=== PATIENT | male | born 1950 | race Caucasian/White ===

== ENCOUNTER 2016-11-01 09:40 | Emergency (ER) | payer MEDICARE, MEDICAID ==
[~2016-11-01] VITALS: Ht 180.3 cm; Wt 81.2 kg
[~2016-11-01 09:40] MED LIST: ALBUTEROL-1 PUFF/14. IN; ALLOPURINOL100 M1 PO; AMLODIPINE10 MG PO; APAP/HYDROCODON1 TA9 PO; ASPIRIN 81MG TA81 MG PO; ATORVASTATIN CA10 M1 PO; BRILINTA90 MG PO; CARDURA2 M1 PO; CARVEDILOL 25MG25 MG PO; CARVEDILOL6.25 MG PO; CEFUROXIME AXE500 MG PO; CIALIS5 MG PO; CLOPIDOGREL75 M2 PO; COMBIVENT INH14.7 G1 IN; DICLOFENAC SODI75 M2 PO; DIFLUCAN100 MG PO; FLEXERIL10 MG PO; GABAPENTIN 400400 M1 PO; GABAPENTIN 400400 MG PO; IMODIUM 2MG. CAP2 MG PO; INDOCIN25 MG PO; ISOSORBIDE DINI10 MG PO; LEVAQUIN500 MG PO; LEVOTHYROXIN0.137 M1 PO; LEVOTHYROXINE0.2 M2 PO; LISINOPRIL HCTZ1 TAB PO; LOPID600 M1 PO; LORTAB 500 MG-71 TAB PO; MAGMTHWSH PO; MELOXICAM15 MG PO; MOTRIN600 MG PO; NITROGLYCERIN0.4 MG PO; OMEPRAZOLE40 MG PO; PHENERGAN25 M3 PO; SIMVASTATIN20 MG PO; SINGULAIR 10 MG10 MG PO; TEKTURNA300 MG PO; TIZANIDINE HCL 44 MG PO; TOPROL XL 100M100 MG PO; TRAZADONE HYDR100 MG PO; VOLTAREN50 MG PO; XANAX 0.5MG TA0.5 MG PO; ZETIA10 MG PO; ZYPREXA10 MG PO
[2016-11-01 09:52] LABS: HEMOGLOBIN 11.4 g/dL (14.1-18.0); LYMPH # 1.4 K/mm3 (0.7-4.5); LYMPH % 14.3 % (10-50)
[2016-11-01 10:18] LABS: BUN 24 mg/dL (7-18)
[2016-11-01 10:19] LABS: GFR (ESTIMATED) 74 ML/MIN (>60)
--- OUTSIDE RECORDS SUMMARY | 2016-11-01 10:32 | External Medical Summary Rpt ---
Author Author , Organization [employer] Address Unknown Phone Unavailable Care Team Providers Care Assistance Representative Name Role Phone CARMELLA, CARMELLA Unavailable Unavailable BESSONJUDITH A, Unavailable Unavailable BESSON, JUDITH A DE LA FUENTE, DE LA FUENTE Unavailable Unavailable DE LA FUENTE ALL, DE LA FUENTE ALL Unavailable Unavailable [facility] Unavailable Unavailable [facility] Unavailable Unavailable SERVICE, [facility] Unavailable Unavailable CONSULTANTS O, [facility], Unavailable Unavailable [facility], Unavailable Unavailable [facility] Unavailable Unavailable LAB, [facility] HEREDIA FLAKITO, HEREDIA FLAKITO Unavailable Unavailable [facility] Unavailable Unavailable [facility], [facility] JIM SANTOS, JIM Unavailable Unavailable MARGARITA ESPINOZA JR R, Unavailable Unavailable MARGARITA FERNANDEZ JR R RYAN RYAN Unavailable Unavailable RYAN NEMESIO, Unavailable Unavailable RYAN NEMESIO RYAN NEMESIO, Unavailable Unavailable RYAN NEMESIO JAMIE DAVISLAS, Unavailable Unavailable RYAN, JAMES LEONARD CLAUDIA, LEONARD CLAUDIA Unavailable Unavailable JAYLEN L.P., JAYLEN L.P. Unavailable Unavailable ÁNGELA BALTAZAR M, Unavailable Unavailable FALLCHRIS NEZAAlexandr M [facility] Unavailable Unavailable [facility], [facility] ALTA ONEAL, Unavailable Unavailable ALTA ONEAL GAINEY Unavailable Unavailable RUFINO OLINDA JIMENEZ, Unavailable Unavailable OLINDA JIMENEZ JOHN W, Unavailable Unavailable BEBE PALOMINO RONDAL E, Unavailable Unavailable ARNOLD FLORES DAVID P, Unavailable Unavailable NOAH MCCRAY [facility] Unavailable Unavailable INC, [facility] Unavailable Unavailable HOSPITAL P, [facility], Unavailable Unavailable [facility], Unavailable Unavailable [facility] DORITA LEANNA, DORITA LEANNA Unavailable Unavailable SHANNON III MARELY, Unavailable Unavailable SHANNON III MARELY [facility] Unavailable Unavailable [facility], [facility] PAULINO WEN, PAULINO Unavailable Unavailable WEN PUALINO WEN, PAULINO Unavailable Unavailable WEN DEON JR, DEON JR Unavailable Unavailable SCARLETT CORAL, SCARLETT Unavailable Unavailable [facility] Unavailable Unavailable SERVICES, [facility] Unavailable Unavailable ASSOC[facility], [facility] Unavailable Unavailable MEDICAL, [facility] Unavailable Unavailable [facility], [facility] Unavailable Unavailable [facility], [facility] MARYSE LEDESMA, Unavailable Unavailable MARYSE LEDESMA [facility], Unavailable Unavailable [facility] STOVALL, Unavailable Unavailable [facility]Alexandr JOHN, Unavailable Unavailable BEBE LAZARO, AMRITA CORAL Unavailable Unavailable AMRITA ABRKERS Unavailable Unavailable FLAKITO HEREDIA MD Unavailable Unavailable CONSULTING SR[facility], FLAKITO HEREDIA MD [facility] Unavailable Unavailable LAB, [facility] Unavailable Unavailable LAB, [facility] DAVID HACKETT, Unavailable Unavailable DAVID HACKETT [facility] Unavailable Unavailable [facility], [facility] MICHAELA, MICHAELA Unavailable Unavailable MICHAELA MAT, Unavailable Unavailable MICHAELA MAT [facility], Unavailable Unavailable [facility], Unavailable Unavailable [facility] XIMENA AMEZCUA, Unavailable Unavailable XIMENA AMEZCUA WELLS KIM Unavailable Unavailable BRIDGET VILLEGAS Unavailable Unavailable ÁNGEL HEDNRIX, Unavailable Unavailable ÁNGEL HENDRIX Purpose Continuity of Care Document - 06-01-2007 through 2016 Problems Code Diagnosis DOS Provider Status E785 HYPERLIPIDE 09-07-2016 [facility] MODE PHYSICIANS UNSPECIFIED GROUP I10 ESSENTIAL 09-07-2016 [facility] PRIMARY PHYSICIANS HYPERTENSIO GROUP N I2510 ASHD AKIACHAK 09-07-2016 [facility] CORONARY PHYSICIANS ARTERY W/O GROUP ANGINA PECTORIS Z950 PRESENCE OF 09-07-2016 [facility] CARDIAC PHYSICIANS PACEMAKER GROUP M109 GOUT 08-17-2016 [facility] UNSPECIFIED [facility]OCIATES M7989 OTHER 08-17-2016 [facility] SPECIFIED ASSOCIATES SOFT TISSUE DISORDERS I495 SICK SINUS 08-13-2016 [facility] SYNDROME PHYSICIANS GROUP J189 PNEUMONIA 08-10-2016 [facility] ORGANISM [facility] J440 COPD WITH 08-10-2016 [facility] ACUTE LOWER [facility] RESPIRATORY INFECTION J9811 ATELECTASIS 08-10-2016 [facility] Z720 TOBACCO USE 08-10-2016 [facility] X61492 PAIN IN 07-27-2016 [facility] RIGHT LEG [facility] R600 LOCALIZED 07-27-2016 [facility] J90 PLEURAL 07-22-2016 [place] EFFUSION [facility]ICAL NOT IMAGING ASS ELSEWHERE CLASSIFIED R531 WEAKNESS 07-22-2016 [facility] E039 HYPOTHYROID 07-19-2016 [facility] ISM [facility] UNSPECIFIED E876 HYPOKALEMIA 07-19-2016 [facility] I2119 [address] 07-19-2016 [facility] E[facility] [place] INVOLV OTH CORONARY ART INF WALL I959 HYPOTENSION 07-19-2016 [facility] UNSPECIFIED J449 CHRONIC 07-19-2016 [facility] OBSTRUCTIVE ASSOCIATES PULMONARY DISEASE UNS R0602 SHORTNESS 07-19-2016 [place] OF BREATH [facility] R0902 HYPOXEMIA 07-19-2016 [facility] R918 OTHER 07-19-2016 [place] NONSPECIFIC MEDICAL ABNORMAL IMAGING ASS FINDING OF LUNG FIELD R079 CHEST PAIN 07-18-2016 [place] UNSPECIFIED [facility] IM[facility]ING ASS M4806 SPINAL 07-22-2015 [place] STENOSIS MEDICAL LUMBAR IMAGING ASS REGION M5126 OTH 07-22-2015 [place] INTERVERTEB MEDICAL RAL DISC IMAGING ASS DISPLACEMEN T LUMBAR RGN M545 LOW BACK 07-22-2015 [place] PAIN MEDICAL IM[facility]ING ASS M1611 UNILATERAL 07-10-2015 [place] PRIMARY MEDICAL OSTEOARTHRI IMAGING ASS TIS RIGHT HIP Z71131 PAIN IN 07-10-2015 [place] RIGHT HIP MEDICAL IM[facility] ASS G65388 SPONDYLOSIS 07-10-2015 [place] W/O MEDICAL MYELOPATH/R IMAGING ASS ADICULOPATH Y LUMB RGN M5136 OTH 07-10-2015 [place] INTERVERTEB MEDICAL RAL DISC IMAGING ASS DEGEN LUMBAR REGION M5137 OT 07-10-2015 [place] INTERVERTEB MEDICAL RAL DISC IMAGING ASS DEGEN LUMBOSACRAL REGION 4019 UNSPECIFIED 01-01-2015 [place] ESSENTIAL MEDICAL HYPERTENSIO IMAGING ASS N 496 CHRONIC 01-01-2015 [place] AIRWAY MEDICAL OBSTRUCTION IMAGING ASS NEC 7862 COUGH 01-01-2015 [facility] 4010 ESSENTIAL 12-18-2014 [facility] HYPERTENSIO LAR N, [place] [address] COR 12-18-2014 [facility] ATHEROSLERO LAR UNSPEC CONSULTANTS TYPE VESSEL O AKIACHAK/SAAD T 44101 OTHER 12-18-2014 [facility] SPECIFIED LAR CARDIAC CONSULTANTS DYSRHYTHMIA O S 2440 POSTSURGICA 12-11-2014 [facility] L LAR HYPOTHYROID CONSULTANTS ISM O 4139 OTHER AND 12-04-2014 [facility] UNSPECIFIED REGIONAL ANGINA MEDICAL PECTORIS 69913 CORONARY 12-04-2014 [facility] ATHEROSCLER REGIONAL OSIS AKIACHAK MEDICAL CORONARY ARTERY 33448 HTN CKD UNS 12-03-2014 [facility] STAGE I INC THRU STAGE IV/UNS 4372 HYPERTENSIV 12-03-2014 [facility] ENCEPHALOPA INC THY 5859 CHRONIC 12-03-2014 [facility] DISEASE INC UNSPECIFIED 586 UNSPECIFIED 12-03-2014 [facility] RENAL LAR FAILURE CONSULTANTS O V1581 PERS HX 10-22-2014 [facility] NONCOMPLIAN LAR CE W/MED TX CONSULTANTS PRS O HAZARDS HLTH 6039 UNSPECIFIED 12-11-2013 [facility] HYDROCELE [facility] 54734 OTHER 12-11-2013 [place] SPECIFIED MEDICAL DISORDER OF IMAGING ASS MALE GENITAL ORGANS 8820 OPEN WOUND 11-10-2013 [facility] CRISTOBAL HAND NO FINGER ALONE W/O MENTION COMP E9208 ACC CAUSED 11-10-2013 [facility] CRISTOBAL OTH SPEC CUT&PIERCIN G INSTRUM/OBJ S 7948 NONSPECIFIC 09-04-2013 [facility] ABNORMAL [facility] RESULTS INC LIVR FUNCTION STUDY 7295 PAIN IN 07-27-2013 [facility] SOFT [facility] TISSUES OF INC LIMB 7231 CERVICALGIA 03-22-2013 [facility] 7210 CERVICAL 02-07-2013 [facility] [place] SPOND[facility] RADIOLOGY WITHOUT MYELOPATHY 7213 LUMBOSACRAL 02-07-2013 [facility] SPONDYLOSIS WITHOUT MYELOPATHY 7224 DEGENERATIO 02-07-2013 [facility] [place] N OF RADIOLOGY CERVICAL INTERVERTEB RAL DISC 15635 DEGEN 02-07-2013 [facility] [place] LUMBAR/LUMB RADIOLOGY OSACRAL INTERVERTEB RAL DISC 7245 UNSPECIFIED 02-07-2013 [facility] V5869 LONG-TERM 02-02-2013 [facility] (CURRENT) [facility] USE OF HOSPITAL OTHER MEDICATIONS 5758 OTHER 11-09-2012 RYAN SPECIFIED NEMESIO DISORDER OF GALLBLADDER 7904 NONSPEC 11-09-2012 [facility] E[facility]ATION [facility] OF LEVELS INC OF TRANSAMINAS E/LDH V745 SCREENING 10-27-2012 [facility]AM[facility] VENEREAL DISEASE 7234 BRACHIAL 07-14-2012 [facility] NEURITIS OR [facility] INC RADICULITIS NOS 4439 UNSPECIFIED 09-10-2011 [place] PERIPHERAL [facility] VASCULAR IMAGING ASS DISEASE 226 BENIGN 05-18-2011 PAULINO WEN NEOPLASM OF THYROID GLANDS 2410 NONTOXIC 05-18-2011 [facility] UNINODULAR H [facility] ANESTHESIA PSC 2459 UNSPECIFIED 05-18-2011 [facility] WEN THYROIDITIS 2449 UNSPECIFIED 05-15-2011 [facility] HYPOTHYROID HOSPITAL P ISM 43080 DIAB W/O 05-15-2011 [facility] TYPE [facility] II/UNS NOT HOSPITAL P STATED UNCNTRL 2724 OTHER AND 05-15-2011 [facility] UNSPECIFIED [facility] P HYPERLIPIDE MODE 4919 UNSPECIFIED 04-02-2011 [facility] CHRONIC [facility] BRONCHITIS INC 4928 OTHER 04-02-2011 [place] EMPHYSEMA [facility]ICAL IMAGING ASS 2409 GOITER, 04-01-2011 [place] UNSPECIFIED [facility]ICAL IMAGING ASS 2450 ACUTE 04-01-2011 PATHOLOGY & THYROIDITIS CYTOLOGY LAB 2388 NEOPLASM 03-02-2011 [facility]CERTAIN [facility] BEHAVIOR INC OTHER SPEC SITES 26996 THYROTOXICO 03-02-2011 [facility] S OTH [facility] ORIGIN W/ INC THYROTOX CRISIS/STOR M 2720 PURE 02-27-2011 [facility] HYPERCHOLES [facility] TEROLEMIA INC 31782 PAIN IN 02-03-2011 [place] JOINT, MEDICAL SHOULDER IMAGING ASS REGION 7802 SYNCOPE AND 02-02-2011 FLAKITO HEREDIA COLLAPSE MD CONSULTING SRV 69858 CHEST PAIN 02-02-2011 FLA[facility] HEREDIA UNSPECIFIED MD CONSULTING SRV 3319 UNSPECIFIED 01-23-2011 [facility] DEGENERATIO ASSOCIAT N 7820 DISTURBANCE 01-23-2011 [facility] SKIN [facility] SENSATION 28172 FLUSHING 01-23-2011 [facility] 7840 HEADACHE 01-23-2011 [facility] 86307 SHORTNESS 01-23-2011 [facility] 53399 NAUSEA 01-23-2011 [facility] 7931 NONSPEC 01-23-2011 [place] FIND RAD RADIOLOGY OTH EXAM ASSOCIAT BODY STRUCT LUNG FIELD 8408 SPRAIN&STRA 01-12-2011 [facility] IN OTH SPEC MEM HOSP SITES INC SHOULDER&UP PER ARM 8409 SPRAIN&STRA 01-12-2011 [facility] IN UNSPEC EMERGENCY SITE SERVICES SHOULDER&UP PER ARM 8470 NECK SPRAIN 01-12-2011 [facility] 9222 CONTUSION 01-12-2011 [facility] OF EMERGENCY ABDOMINAL SERVICES WALL 98038 OTHER 01-12-2011 [place] INJURY OF MEDICAL CHEST WALL IMAGING ASS 9592 INJURY 01-12-2011 [facility] OTHER&UNSPE MEDICAL CIFIED IMAGING ASS SHOULDER&UP PER ARM 9596 INJURY 01-12-2011 [place] OTHER AND MEDICAL UNSPECIFIED IMAGING ASS HIP AND THIGH E9179 OTHER 01-12-2011 [facility]ERGENCY AGAINST SERVICES W/WO SUBSEQUENT FALL 92053 OSTEOARTHRO 01-10-2011 [facility] S UNSPEC HOSPITAL WHETHER GEN/LOC SHLDR REGION 7291 UNSPECIFIED 01-10-2011 [facility] MY[facility] 13621 GROSS 09-17-2010 [facility] P 27668 PAIN IN 11-26-2009 [facility] JOINT, NEMESIO LOWER LEG 43920 PAIN IN 11-22-2009 [facility] JOINT EMERGENCY PELVIC SERVICES REGION AND ASSOCIATES THIGH 8439 SPRAIN&STRA 11-22-2009 [facility] IN OF MEM HOSP UNSPECIFIED INC SITE OF HIP&THIGH 8449 SPRAIN&STRA 11-22-2009 [facility] IN OF MEM HOSP UNSPECIFIED INC SITE OF KNEE&LEG 9597 INJURY 11-22-2009 [facility] OTHER&UNSPE EMERGENCY CIFIED KNEE SERVICES LEG ASSOCIATES ANKLE&FOOT E8889 UNSPECIFIED 11-22-2009 [facility] FALL [facility]ERGENCY SERVICES ASSOCIATES 42175 HEMATURIA 09-16-2009 [place] UNSPECIFIED MEDICAL IMAGING ASSOCIATES 30018 MICROSCOPIC 09-16-2009 [facility] HEMATURIA [facility] 23669 ABDOMINAL 09-16-2009 [facility] PAIN RIGHT ASSOCIATES LOWER QUADRANT 2749 GOUT, 09-05-2009 [facility] UNSPECIFIED ASSOCIATES 32976 OSTEOARTHRO 09-05-2009 [facility] S UNSPEC ASSOCIATES WHETHER GEN/LOC UNSPEC SITE 83825 OTHER 08-19-2009 LAB [facility] MALAISE AND [facility]IC [employer] HOLDING 15220 SPASM OF 08-18-2009 [facility] MUSCLE [facility] 56673 VOMITING 08-18-2009 [facility] ALONE [facility] 4111 INTERMEDIAT 08-13-2009 [facility] E CORONARY [place] [facility] 28321 ATRIAL 08-13-2009 NEW FIBRILLATIO [place] [facility] PSC 17393 DEHYDRATION 08-12-2009 [facility] 08737 LEUKOCYTOSI 08-12-2009 [facility] UNSPECIFIED 34531 CHRONIC 08-12-2009 [facility] OBSTRUCTIVE [facility] ASTHMA UNSPECIFIED 5849 ACUTE 08-12-2009 [facility] FAILURE [facility] UNSPECIFIED PROF SERV 5939 UNSPECIFIED 08-12-2009 [facility] DISORDER EMERGENCY OF KIDNEY SERVICES AND URETER ASSOCIATES 66610 RHABDOMYOLY 08-12-2009 [facility] 7804 DIZZINESS 08-12-2009 [place] AND [facility]ICAL GIDDINESS IMAGING ASSOCIATES 61778 OTHER CHEST 08-12-2009 [facility] V1582 PERS HX 08-12-2009 [facility] TOBACCO USE [facility] PRESENTING [facility] 41234 ABDOMINAL 07-14-2009 [facility] PAIN RIGHT MEDICAL UPPER IMAGING QUADRANT ASSOCIATES 96036 ABDOMINAL 07-10-2009 [facility] PAIN, MEM HOSP EPIGASTRIC INC 57983 UNSPECIFIED 07-05-2009 [facility] ARTHROPATHY SITE UNSPECIFIED 23653 EXOSTOSIS 04-04-2009 [facility], OF DAVID D UNSPECIFIED SITE 78353 EQUINUS 04-04-2009 [facility], DEFORMITY DAVID D OF FOOT, ACQUIRED 7851 PALPITATION 12-20-2008 [facility] 24113 ASTHMA, 12-03-2008 [facility] , UNSPECIFIED STATUS 52169 ESOPHAGEAL 05-24-2008 [facility] REFLUX [facility] INC V571 OTHER 05-13-2008 [facility] PHYSICAL HOSPITAL THERAPY 3384 CHRONIC 03-08-2008 [facility], PAIN NOAH P SYNDROME 7238 OTHER 02-02-2008 ABDIAZIZ LAZARO AFFECTING CERVICAL REGION 40582 STOMATITIS 01-27-2008 [facility] MUCOSITIS [place] UNSPECIFIED 46499 UNSPECIFIED 01-27-2008 [facility] ESOPHAGITIS INC 17758 ACUTE 01-27-2008 [facility] ESOPHAGITIS Insane Logic 4741 ALLERGIC 01-16-2008 [facility] RHINITIS ASSOCIATES CAUSE UNSPECIFIED 460 ACUTE 10-16-2007 [facility] NASOPHARYNG ASSOCIATES ITIS 8840 MX&UNSPEC 10-16-2007 [facility] OPEN WOUND HOSPITAL UPPER LIMB W/O MENTION COMP 99044 OBSTRUCTIVE 09-22-2007 [facility] CHRONIC ASSOCIATES BRONCHITIS WITH EXACERBATIO N 33466 POSTLAMINEC 06-29-2007 [facility] SARAH SERVICES SYNDROME PSC LUMBAR REGION 7242 LUMBAGO 06-29-2007 [facility]ANS SERVICES PSC 7246 DISORDERS 06-29-2007 PHYSICIANS OF SACRUM SERVICES PSC 9532 INJURY TO 06-29-2007 [facility]ANS LUMBAR SERVICES NERVE ROOT PSC 7211 CERVICAL 06-28-2007 [facility] SPONDYLOSIS SERVICES WITH PSC MYELOPATHY 84790 OTHER&UNSPE 06-28-2007 PH[facility]IANS CIFIED DISC SERVICES DISORDER PSC CERVICAL REGION 7230 SPINAL 06-28-2007 PH[facility]IANS STENOSIS IN SERVICES CERVICAL PSC REGION 83049 OTHER&UNSPE 06-26-2007 PHYSICIANS CIFIED DISC SERVICES DISORDER PSC OF LUMBAR REGION 73828 SCOLIOSIS , 06-26-2007 [facility] IDIOPATHIC SERVICES PSC 9530 INJURY TO 06-01-2007 [facility]ANS CERVICAL SERVICES NERVE ROOT PSC 244.9 786.50 M48.06 SPINAL STENOSIS, LUMBAR REGION S61.412A LACERATION WITHOUT FOREIGN BODY OF LEFT HAND, INIT ENCNTR Medications Na ND Rx Da Fi Fi Am Da Di Ph RX Ph St me C No te ll ll ou ys ag ar # ys at rm s nt no ma ic us Or Da si cy ia de te s n re d AL 59 10 10 0 60 30 SO 38 NO Ac MN 76 -2 -2 .0 PE 80 RF ti AZ 23 5- 7- 00 RS 07 LE ve OL 72 20 20 ET AM 00 11 11 FA R 3 [place] 0. LY HE 5 NR MG Y TA BL ET AL 59 09 09 0 60 30 SO 38 NO Ac MN 76 -2 -2 .0 PE 54 RF ti AZ 23 6- 8- 00 RS 11 LE ve OL 72 20 20 ET AM 00 11 11 FA R 3 [place] 0. L[place] HE 5 NR MG Y TA BL ET AL 59 08 08 0 60 30 SO 38 NO Ac MN 76 -2 -2 .0 PE 24 RF ti AZ 23 6- 6- 00 RS 86 LE ve OL 72 20 20 ET AM 00 11 11 FA R 3 [place] 0. L[place] HE 5 NR MG Y TA BL ET AL 59 07 07 0 60 30 SO 37 NO Ac MN 76 -2 -2 .0 PE 98 RF ti AZ 23 9- 9- 00 RS 57 LE ve OL 72 20 20 ET AM 00 11 11 FA R 3 [place] 0. L[place] HE 5 NR MG Y TA BL ET AL 00 06 07 0 60 30 SO 37 NO Ac MN 78 -2 -0 .0 PE 72 RF ti AZ 11 8- 1- 00 RS 67 LE ve OL 07 20 20 ET AM 71 11 11 FA R 0 [place] 0. LY HE 5 NR MG Y TA BL ET AL 00 05 05 0 60 30 SO 37 NO Ac MN 78 -3 -3 .0 PE 48 RF ti AZ 11 1- 1- 00 RS 56 LE ve OL 07 20 20 ET AM 71 11 11 FA R 0 [place] 0. LY HE [address] Y UG TA ET AL 00 04 04 0 60 30 SO 37 NO Ac MN 78 -2 -2 .0 PE 22 RF ti AZ 11 9- 9- 00 RS 08 LE ve OL 07 20 20 ET AM 71 11 11 FA R 0 [place] 0. LY HE [address] Y UG TA BL ET 64 06 06 0 18 5 SO 34 NO Ac 37 -0 -0 0. PE 43 RF ti 60 4- 4- 00 RS 12 LE ve 72 20 20 0 ET 71 10 10 FA R 6 [place] NR [address] Y UG AL 00 01 01 00 60 30 HO 10 NO Ac MN 78 -0 -1 .0 PK 03 RF ti AZ 11 8- 4- 00 IN 40 LE ve OL 07 20 20 S 2 ET AM [address] Alexandr 5 UG 0. HE 5 CO NR MG Y IN [facility] ET AL 00 12 12 00 60 30 HO 10 NO Ac MN 78 -0 -1 .0 PK 02 RF ti AZ 11 8- 7- 00 IN 37 LE ve OL 07 20 20 S 7 ET AM [address] Strange 5 UG 0. HE 5 CO NR MG Y IN [facility] ET AL 00 11 11 00 60 30 HO 10 NO Ac MN 78 -1 -1 .0 PK 01 RF ti AZ 11 0- 9- 00 IN 40 LE ve OL 07 20 20 S 8 ET AM [address] Strange 5 UG 0. HE 5 CO NR MG Y IN [facility] ET AL 00 10 10 00 60 30 HO 10 NO Ac MN 78 -0 -2 .0 PK 00 RF ti AZ 11 9- 2- 00 IN 20 LE ve OL 07 20 20 S 0 ET AM [address] Alexandr 5 UG 0. HE 5 CO NR MG Y IN TA [facility] ET AL 00 09 09 00 60 30 HO 99 NO Ac MN 78 -1 -2 .0 PK 91 RF ti AZ 11 1- 4- 00 IN 65 LE ve OL 07 20 20 S ET AM [address] Alexandr 5 UG 0. HE 5 CO NR MG Y IN TA [facility] ET AL 00 08 08 00 60 30 HO 99 NO Ac MN 78 -1 -2 .0 PK 81 RF ti AZ 11 1- 7- 00 IN 05 LE ve OL 07 20 20 S ET AM [address] R 5 UG 0. HE 5 CO NR MG Y IN TA C BL ET AL 59 02 02 00 60 30 CL 18 NO Ac MN 76 -1 -2 .0 IN 75 RF ti AZ 23 3- 6- 00 IC 66 LE ve OL 72 20 20 ET AM 00 09 09 PH R 1 AR 0. MA HE 5 CY NR MG Y TA BL ET BU 00 02 02 00 15 4 SO 30 NO Ac TA 14 -1 -2 .0 PE 56 RF ti LB 31 3- 6- 00 RS 45 LE ve -A 78 20 20 ET CE 70 09 09 FA R TA 1 [place] LY HE N- NR CA DR Y FF UG 50 -3 25 -4 0 60 02 02 00 18 5 SO 30 NO Ac 25 -1 -2 0. PE 56 RF ti 80 3- 6- 00 RS 47 LE ve 23 20 20 0 ET 91 09 09 FA R 6 [place] NR DR Y UG 00 02 02 00 20 7 CL 18 NO Ac 55 -0 -1 .0 IN 71 RF ti 51 6- 2- 00 IC 86 LE ve 88 20 20 ET 30 09 09 PH R 2 AR MA HE CY NR Y 60 01 01 00 18 5 SO 30 NO Ac 25 -2 -3 0. PE 37 RF ti 80 0- 0- 00 RS 23 LE ve 23 20 20 0 ET 91 09 09 FA R 6 [place] NR [place] Y UG 00 11 12 00 20 7 CL 18 NO Ac 55 -1 -0 .0 IN 21 RF ti 51 7- 4- 00 IC 25 LE ve 88 20 20 ET 30 08 08 PH R 2 AR MA HE CY NR Y 60 11 12 00 18 5 CL 18 NO Ac 25 -2 -0 0. IN 23 RF ti 80 1- 4- 00 IC 71 LE ve 23 20 20 0 ET 91 08 08 PH R 6 AR MA HE CY NR Y 60 11 11 00 18 5 CL 18 NO Ac 25 -1 -2 0. IN 18 RF ti 80 4- 0- 00 IC 63 LE ve 23 20 20 0 ET 91 08 08 PH R 6 AR MA HE CY NR Y AL 59 07 08 00 60 30 CL 17 No Ac MN 76 -1 -0 .0 IN 46 t ti AZ 23 8- 1- 00 IC 15 Av ve OL 72 20 20 ai AM 00 08 08 PH la 3 AR bl 0. MA e 5 CY MG TA BL ET 60 06 06 00 18 5 CL 17 No Ac 25 -0 -1 0. IN 17 t ti 80 2- 2- 00 IC 61 Av ve 23 20 20 0 ai 91 08 08 PH la 6 AR bl MA e CY HY 60 05 05 00 15 5 CL [address] 43 -0 -2 0. IN 03 t ti OC 20 9- 2- 00 IC 57 Av ve OD 45 20 20 0 ai ON 51 08 08 PH la E- 6 AR bl HO MA e MA CY TR OP IN E SY RU P Procedures Procedure DOS Code Location Performer Comment ECG [address] [facility] ROUTINE 7 PHYSICIAN ECG S GROUP W/LEAST 12 LDS I&R ONLY ECG 42141 [facility] ROUTINE 7 [facility] ECG INC INC W/LEAST 12 LDS TRCG ONLY W/O I&R ECG [facility] PHYSICIAN ECG S GROUP W/LEAST 12 LDS I&R ONLY THERAPEUT 73180 [facility] FAMILY IC 7 CARE CARE PROPHYLAC ASSOCIATE ASSOCIATE TIC/DX S S INJECTION SUBQ/[place] [address] [facility] NEW/RPLCM 7 PHYSICIAN T PRM PM S GROUP W/TRANSV ELTRD ATRIAL&VE NT RADIOLOGI 34913 [place] [facility] 7 MEDICAL EXAMINATI IMAGING ON CHEST ASS SINGLE VIEW FRONTAL ECG 15510 [facility] ROUTINE 7 [facility] ECG INC INC W/LEAST 12 LDS TRCG ONLY W/O I&R RADIOLOGI 96320 [facility] C EXAM 7 [facility] CHEST 2 INC INC VIEWS FRONTAL&L ATERAL DUP-SCAN 56533 [place] [facility] XTR VEINS 7 MEDICAL IMAGING UNILATERA ASS L/LIMITED STUDY ECG 18883 [facility] ROUTINE 7 [facility] ECG INC INC W/LEAST 12 LDS TRCG ONLY W/O I&R HOSPITAL 90062 FAMILY FAMILY DISCHARGE 7 CARE CARE DAY ASSOCIATE ASSOCIATE MANAGEMEN S S T 30 MIN/< RADIOLOGI 14589 [place] C EXAM 7 MEDICAL CHEST 2 IMAGING VIEWS ASS FRONTAL&[place] [address] J[facility] [place] [facility] HEAD/BRAI 7 MEDICAL N W/O IMAGING CONTRAST ASS MATERIAL RADIOLOGI 99588 [facility] [place] C EXAM 7 MEDICAL CHEST 2 IMAGING VIEWS ASS FRONTAL&L ATERAL ECG 01261 GEORGE DEON SCHULTZ ROUTINE 7 [facility] W/LEAST P 12 LDS I&R ONLY RADIOLOGI 80011 JANICE DAVIS C 7 MEDICAL EXAMINATI IMAGING ON CHEST ASS [place] FRONTAL ECG 23382 GE[facility] VAZQUEZ ROUTINE 6 [facility] ECG INC INC W/LEAST 12 LDS TRCG ONLY W/O I&R ECG 26284 GE[facility] VAZQUEZ ROUTINE 6 [facility] ECG INC INC W/LEAST 12 LDS TRCG ONLY W/O I&R MRI 40530 JANICE DAVIS SPINAL 6 MEDICAL NEMESIO CANAL IMAGING LUMBAR ASS W/O CONTRAST MATERIAL 3D 17[facility] RENDERING 6 MEDICAL NEMESIO W/INTERP IMAGING & ASS POSTPROCE SS SUPERVISI ON RADEX 92185 [place]ANICE [place] ALL SPINE 6 MEDICAL LUMBOSACR IMAGING AL 2/3 ASS VIEWS RADEX HIP 86315 GEORGE VAZQUEZ 6 [facility] UNILATERA INC INC L WITH PELVIS 2-3 VIEWS ECG 24732 GEORGE VAZQUEZ ROUTINE 6 [facility] ECG INC INC W/LEAST 12 LDS TRCG ONLY W/O I&R RADEX 66175 GEORGE VAZQUEZ SPINE 6 [facility] LUMBOSACR INC INC AL MINIMUM 4 VIEWS RADEX HIP 16390 [facility]ANICE [place] ALL 6 MEDICAL UNILATERA IMAGING L WITH ASS PELVIS 1 VIEW ECG 05084 GEOR[facility] VAZQUEZ ROUTINE 6 [facility] ECG INC INC W/LEAST 12 LDS TRCG ONLY W/O I&R RADIOLOGI 93049 [facility]ANICE [place] ALL C EXAM 5 MEDICAL CHEST 2 IMAGING VIEWS ASS FRONTAL&L ATERAL ECG 60091 CARDIOVAS CARDIOVAS ROUTINE 5 CULAR CULAR ECG CONSULTAN CONSULTAN W/LEAST TS O TS O 12 LDS I&R ONLY ECG 76628 CARDIOVAS CARDIOVAS ROUTINE 5 CULAR CULAR ECG CONSULTAN CONSULTAN W/LEAST TS O TS O 12 LDS I&R ONLY NONCOVERE A9270 MEADOWVIE MEADOWVIE D ITEM OR 5 W W SERVICE [facility] MEDICAL NONCOVERE A9270 MEADOWVIE MEADOWVIE D ITEM OR 5 W W SERVICE [facility] CATH PLMT 15576 CARDIOVAS CARDIOVAS L HRT & 5 CULAR CULAR ARTS CONSULTAN CONSULTAN W/NJX & TS O TS O ANGIO IMG S&I ECG 31350 CARDIOVAS CARDIOVAS ROUTINE 5 CULAR CULAR ECG CONSULTAN CONSULTAN W/LEAST TS O TS O 12 LDS I&[place] [address] GEORGE VAZQUEZ SCROTUM & 4 [facility] [place] [place] [address] GEORGE VAZQUEZ ABDOMEN & 4 [facility] PELVIS INC INC W/O CONTRST 1/> BODY RE DUP-SCAN 43482 GEORGE VAZQUEZ XTR VEINS 4 [facility] INC INC UNILATERA L/LIMITED STUDY NEEDLE 93019 AMRITA MONCADA EMG EA 3 EXTREMTY W/PARASPI NL AREA COMPLETE NERVE 86539 AMRITA MONCADA CONDUCTIO 3 N STUDIES 11-12 STUDIES MRI 14310 [facility] [place] SHANNON SPINAL 3 RADIOLOGY III MARELY CANAL LUMBAR W/O CONTRAST MATERIAL MRI 85906 [facility] SPINAL [address] [place] [address] CERVICAL W/O CONTRAST MATRL RADEX 58724 [facility] SPINE [address] [place] [address] CERVICAL [facility] 2 OR 3 VIEWS RADEX 88143 [facility] SPINE 3 [facility] 2/3 [place] [address] RYAN RYAN ABDOMINAL 3 NEMESIO NEMESIO REAL TIME W/IMAGE LIMITED IADNA 25309 MEDICAL MEDICAL PAPILLOMA 3 DIAGNOSTI DIAGNOSTI [facility] HUMAN AMPLIFIED PROBE TQ IADNA NOS 63872 MEDICAL MEDICAL 3 DIAGNOSTI DIAGNOSTI AMPLIFIED [facility] PROBE TQ EACH ORGANISM MRI 93880 RYAN RYAN SPINAL 3 NEMESIO NEMESIO CANAL CERVICAL W/O CONTRAST MATRL 3D 18966 RYAN RYAN RENDERING 3 NEMESIO NEMESIO W/INTERP & POSTPROCE SS SUPERVISI ON NON-INVAS 49597 JANICE RYAN CHERELLE 2 MEDICAL NEMESIO PHYSIOLOG IMAGING IC STUDY ASS EXTREMITY 3 LEVLS THYROIDEC 82381 JEFFERSON PAULINO SARAH 2 WEN WEN SUBSTERNA L CERVICAL APPROACH PARATHYRO 31993 JEFFERSON PAULINO ID 2 WEN WEN AUTOTRANS PLANTATIO N ADD-ON ECG 08229 DORITA RAM ROUTINE 2 ECG W/LEAST 12 LDS I&R ONLY ECG 70296 GEORGE VAZQUZE ROUTINE 1 [facility] W/LEAST P P 12 LDS I&R ONLY BLOOD 89993 GEORGE VAZQUEZ COUNT 1 [facility] HEMOGLOBI INC INC N CALCIUM 10851 GEORGE VAZQUEZ IONIZED 1 [facility] INC INC BASIC 82014 GEORGE VAZQUEZ METABOLIC 1 [facility] PANEL INC INC CALCIUM TOTAL ECG 80635 GEORGE VAZQUEZ ROUTINE 1 [facility] ECG INC INC W/LEAST 12 LDS TRCG ONLY W/O I&R BLOOD 36722 GEORGE VAZQUEZ COUNT 1 [facility] [place] [address] GEORGE VAZQUEZ THYROID 1 [facility] STIMULATI [place] [address] GEORGE VAZQUEZ FREE 1 [facility] THYROXINE INC INC COLLECTIO 96878 GEORGE VAZQUEZ N VENOUS 1 [facility] BLOOD INC INC VENIPUNCT URE RADIOLOGI 60596 GEORGE VAZQUEZ C EXAM 1 [facility] CHEST 2 INC INC VIEWS FRONTAL&[place] [address] GEORGE VAZQUEZ THYROID 1 [facility] STIMULATI [place] [address] GEORGE VAZQUEZ FREE 1 [facility]OS[facility] THYROXINE INC INC COLLECTIO 79909 GEORGE VAZQUEZ N VENOUS 1 [facility]OS[facility] BLOOD INC INC VENIPUNCT URE US SOFT 35700 GEORGE VAZQUEZ TISSUE 1 [facility] HEAD & INC INC NECK REAL TIME IMGE DOCM FINE 03389 [facility] NEEDLE 1 MEDICAL NEMESIO ASPIRATIO [place] [address] [place] RYAN GUIDANCE 1 MEDICAL NEMESIO NEEDLE IMAGING PLACEMENT ASS IMG S&I MICROSOMA 67929 GEORGE VAZQUEZ L 1 [facility] ANTIBODIE INC INC S EACH FINE 70015 GEORGE VAZQUEZ NEEDLE 1 [facility] ASPIRATIO INC INC N W/O IMAGING GUIDANCE CYTP EVAL 10288 PATHOLOGY PATHOLOGY FINE 1 & & NEEDLE CYTOLOGY CYTOLOGY [facility]ATE LAB LAB INTERP & REPORT CT SOFT 11258 GEORGE VAZQUEZ TISSUE 1 [facility] NECK W/O INC INC CONTRAST MATERIAL CREATININ 75768 GEORGE BARNESON E BLOOD 1 [place] [address] GEORGE GEORGE UREA 1 [facility] NITROGEN INC INC QUANTITAT CHERELLE COLLECTIO 58235 GEORGE VAZQUEZ N VENOUS 1 [facility] BLOOD INC INC VENIPUNCT URE 3D 37901 GEORGE VAZQUEZ RENDERING 1 [facility] INC INC W/INTERP& [place] [address] GEORGE VAZQUEZ THYROXINE 1 [facility] [place] [address] GEORGE VAZQUEZ THYROID 1 [facility] STIMULATI INC INC NG HORMONE TSH CALCIUM 51106 GEORGE VAZQUEZ TOTAL 1 [facility]OS[facility] INC INC COLLECTIO 19802 GEORGE VAZQUEZ N VENOUS 1 [facility]OS[facility] BLOOD INC INC VENIPUNCT URE MICROSOMA 38962 GEORGE BARNESON L 1 [facility]OS[facility] ANTIBODIE INC INC S EACH US SOFT 64168 GEORGEJOSÉ LUIS BARNESON TISSUE 1 [facility] HEAD & INC INC NECK REAL TIME IMGE DOCM RADEX 99539 JANICE TRAMMELLUTCHER SPINE 1 MEDICAL NEMESIO CERVICAL IMAGING 4 OR 5 ASS VIEWS RADEX 09758 GEORGE VAZQUEZ SHOULDER 1 [facility] COMPLETE INC INC MINIMUM 2 VIEWS RADEX 29439 GEORGE VAZQUEZ SPINE 1 [facility] CERVICAL INC [place] 6 [place] [address] GEORGE VAZQUEZ THYROID 1 [facility] STIMULATI INC INC NG HORMONE TSH COLLECTIO 98627 GEORGE VAZQUEZ N VENOUS 1 [facility] BLOOD INC INC VENIPUNCT URE BASIC 89751 GEORGE VAZQUEZ METABOLIC 1 [facility] PANEL INC INC CALCIUM TOTAL HEPATIC 26563 GEORGE VAZQUEZ FUNCTION 1 [facility] PANEL INC INC LIPID 73391 GEORGE VAZQUEZ PANEL 1 [facility] INC INC ECG 58910 FLAKITO HEREDIA HEREDIA FLAKITO ROUTINE 1 MD ECG CONSULTIN W/LEAST G SRV 12 LDS I&R ONLY RADIOLOGI 10445 DAVEY MARISCAL C EXAM 1 CO CO CHEST 2 [facility]OSPITAL VIEWS FRONTAL&L ATERAL BLOOD 30805 DAVEY MARISCAL COUNT 1 CO CO COMPLETE [facility] AUTO&[place] [address] DAVEY MARISCAL TROPONIN 1 CO CO QUANTITAT [facility] CHERELLE MYOGLOBIN 26863 DAVEY MARISCAL 1 CO CO [facility] URNLS DIP 29578 DAVEY MARISCAL 1 CO CO STICK/TAB [facility] HOSPITAL [place] [address] DAVEY MARISCAL INFUSION 1 CO CO THERAPY/P [facility] ROPHYLAXI S /DX 1ST TO 1 HR ECG 43089 DAVEY MARISCAL ROUTINE 1 CO CO ECG [facility]OSPITAL W/LEAST 12 LDS TRCG ONLY W/O I&R CREATINE 22075 DAVEY MARISCAL KINASE 1 [facility]OSPITAL ANTIBODY 72063 DAVEY MARISCAL HELICOBAC [address] [facility] HOSPITAL PYLORI CREATINE 99337 DAVEY MARISCAL KINASE MB 1 [facility] HOSPITAL ONLY COMPREHEN 17803 DAVEY FARRISOLAS SIVE 1 CO VA METABOLIC [facility]OSPITAL PANEL COLLECTIO 74897 DAVEY MARISCAL Katherine VENOUS 1 CO VA BLOOD [facility] [place] [address] DAVEY MARISCAL HEAD/BRAI 1 CO CO N W/O HOSPITAL HOSPITAL CONTRAST MATERIAL CERVICAL L0120 JAYLEN L.P. JAYLEN L.P. FLEXIBLE 1 NONADJUST ABLE PREFAB OFF SHELF 3D 20602 JANICE DAVIS RENDERING 1 MEDICAL NEMESIO IMAGING W/INTERP& [place] [address] JANICE DAVIS CERVICAL 1 MEDICAL NEMESIO SPINE W/[place] [address] GEORGE VAZQUEZ AMYLASE 1 [facility] INC INC COMPREHEN 87583 GEORGE VAZQUEZ SIVE 1 [facility] [place] [address] [facility] DAVIS ABDOMEN & 1 MEDICAL NEMESIO PELVIS IMAGING W/O ASS CONTRAST MATERIAL RADIOLOGI 87400 [facility] DAVIS C EXAM 1 MEDICAL NEMESIO CHEST 2 IMAGING VIEWS ASS FRONTAL&L ATERAL RADEX 34187 [facility] DAVIS SHOULDER 1 MEDICAL NEMESIO COMPLETE IMAGING MINIMUM 2 ASS VIEWS RADIOLOGI 28385 [facility] DAVIS C 1 MEDICAL NEMESIO EXAMINATI IMAGING ON PELVIS ASS 1/2 VIEWS THERAPEUT 67086 GEORGE VAZQUEZ IC 1 [facility] INJECTION INC INC IV PUSH EACH NEW DRUG BLOOD 23582 GEORGE VAZQUEZ COUNT 1 [facility] COMPLETE INC INC AUTO&[place] [address] GEORGE VAZQUEZ INFUSION 1 [facility] THERAPY/P INC INC ROPHYLAXI S /DX 1ST TO 1 [place] [address] GEORGE VAZQUEZ LIPASE 1 [facility] INC INC MRI ANY 87243 RYAN BUTLERCHER JT LOWER 0 NEMESIO NEMESIO EXTREM W/O CONTRAST MATRL RADIOLOGI 33006 GEORGE VAZQUEZ C 0 [facility] EXAMINATI INC INC ON KNEE 3 VIEWS RADEX HIP 48132 GEORGE VAZQUEZ 0 [facility] UNILATERA INC INC L COMPLETE MINIMUM 2 VIEWS KNEE L1830 GEORGE VAZQUEZ ORTHOSIS 0 [facility] IMMOBLIZE INC INC R CANVAS LONGTUDNL PREFAB DASH 33154 SHELLEY FERNANDEZ , POST-VOID 0 [facility] UROLOGY R RESIDUAL PSC URINE&/BL ADDER CAP BLOOD 01159 FAMILY MCNEILT, COUNT 0 CARE R BUFFY COMPLETE ASSOCIATE AUTO&[place] [address] GEORGE VAZQUEZ ABDOMEN 0 [facility] W/O INC INC CONTRAST MATERIAL URNLS DIP 02348 FAMILY COTTO, 0 CARE Alexandr BAER STICK/TAB ASSOCIATE LET RGNT S NON-AUTO W/O MICRSCP 3D 60941 GEORGE VAZQUEZ RENDERING 0 [facility] INC INC W/INTERP& POSTPROC DIFF WORK STATION CT PELVIS 77468 GEORGE VAZQUEZ W/O 0 [facility] [place] [address] COMBINED COMBINED BLOOD/URI 0 PHYSICIAN PHYSICIAN C ACID S LAB S LAB 25 10091 LAB ANNIE LAB ANNIE HYDROXY 0 AMERIC AMERIC INCLUDES HOLDING HOLDING FRACTIONS IF PERFORMED CYANOCOBA 34333 COMBINED COMBINED ELAINE 0 PHYSICIAN PHYSICIAN VITAMIN S LAB S LAB B-12 CREATINE 30915 COMBINED COMBINED KINASE 0 PHYSICIAN [place] [address] COMBINED COMBINED FOLIC 0 PHYSICIAN PHYSICIAN ACID S LAB S LAB SERUM COMPREHEN 56530 COMBINED COMBINED SIVE 0 PHYSICIAN PHYSICIAN METABOLIC S LAB S LAB PANEL BLOOD 74983 FAMILY MONTALVOBERRY, COUNT 0 CARE MARYSE T COMPLETE ASSOCIATE AUTO&AUTO S DIFRNTL WBC COLLECTIO 26446 FAMILY LEDESMA, N VENOUS 0 CARE MARYSE Flowers BLOOD ASSOCIATE VENIPUNCT S URE BASIC 42166 COMBINED COMBINED METABOLIC 0 PHYSICIAN PHYSICIAN PANEL S LAB S LAB CALCIUM TOTAL ECG 48175 BUBBA HENDRIX ROUTINE 0 ÁNGEL ARCOS ECG CLINIC J W/LEAST PSC 12 LDS I&R ONLY ECG 22685 GEORGE BESSON, ROUTINE 0 [facility] W/LEAST PROF SERV 12 [facility] I&[place] [address] GEORGE GEORGE TROPONIN 0 [facility] QUANTITAT INC INC CHERELLE BLOOD 60931 GEORGE VAZQUEZ COUNT 0 [facility] COMPLETE INC INC AUTO&AUTO DIFRNTL WBC RADIOLOGI 14308 GEORGE VAZQUEZ C EXAM 0 [facility] CHEST 2 INC INC VIEWS FRONTAL&L ATERAL CREATINE 52692 GEORGE VAZQUEZ KINASE 0 [facility] TOTAL INC INC 3D 40624 GEORGE VAZQUEZ RENDERING 0 [facility] W/INTERP INC INC & POSTPROCE SS SUPERVISI ON ECG 05938 GEORGE VAZQUEZ ROUTINE 0 [facility] ECG INC INC W/LEAST 12 [facility] TRCG ONLY W/O I&R INITIAL 28179 CARDIOLOG [facility] 0 Y [place] OBRIEN CARE/DAY OF [place] 70 MINUTES CRITICAL 05466 WILLY JIMENEZ CARE 0 EMERGENCY OLINDA S ILL/INJUR SERVICES ED PATIENT ASSOCIATE INIT S 30-74 MIN BASIC 78755 GEORGE VAZQUEZ METABOLIC 0 [facility] [address] GEORGE VAZQUEZ HEAD/BRAI 0 [facility] N W/O INC INC CONTRAST MATERIAL CREATINE 65204 GEORGE VAZQUEZ KINASE MB 0 [facility] FRACTION INC INC ONLY TECHNETIU A9537 GEORGE VAZQUEZ M TC-99M 0 [facility] MEBROFENI INC INC N DX UP TO 15 MCI HEPATBL 72433 GEORGE VAZQUEZ DUX SYS 0 [facility] [place] [address] GEORGE VAZQUEZ INFUSION 0 [facility] THERAPY/P INC INC ROPHYLAXI S /DX 1ST TO 1 [place] [address] DAVEY MARISCAL BLOOD/URI 0 CO CO C ACID [facility] COLLECTIO 97382 DAVEY MARISCAL N VENOUS 0 CO CO BLOOD [facility] [place] [address] GEORGE VAZQUEZ THYROID 0 COUNTS INCLUDE 234 [facility] STIMULATI [place] [address] GEORGE VAZQUEZ AMYLASE 0 [facility] INC INC COLLECTIO 40303 GEORGE VAZQUEZ N VENOUS 0 COUNTS INCLUDE 234 [facility] [place] [address] JANICE RYAN, ABDOMINAL 0 MEDICAL JAMES REAL IMAGING TIME ASSOCIATE W/[place] [address] GEORGE VAZQUEZ LIPASE 0 [facility] INC INC XTRNL ECG 80771 GEORGE VAZQUEZ & 48 HR 9 COUNTS INCLUDE 234 [facility] RECORDING INC INC CLOSURE C[address] VASCULAR AORTOGRAP [address] ABDOMINAL SERIALOGR APHY RS&I GLUCOSE 71821 [facility] [address]ANTIT[address] CHERELLE BLOOD XCPT REAGENT STRIP SODIUM [address] PLASMA OR WHOLE BLOOD INTRDUCR/ C1894 [facility] SHEATH [address] [place] [address] NOT GUID INTRACARD EP NON-LASR CREATININ 05172 [facility] E [address] INJECTION 80048 [facility] CARDIAC [address] [place] [address] CATHJ L VENTR/L ATR ANGIOGRAP H PLCMT G0269 [facility] OCCL DEVC [address] [place] [address] RG/ART POST SURG/INTR VNL PROC ANGIOGRAP [address] EXTREMITY UNILATERA L RS&I POTASSIUM [address] PLASMA/[place] B[place] [address] [facility] C-[address] F/SLCTV C ANGRPH I SI&R 03347 [facility] F/NJX PX [address] [place] [address] DURING C-CATHJ VENTR&/AT R ANGRPH I SI&R 67351 [facility] F/NJX PX [address] [place] [address] DURING C-CATHJ PULM&/OR SELECT L HRT 48076 [facility] CATHETERI [address] [place] [address] ZATION RETROGRAD E BRACHIAL PERQ BLOOD 91049 [facility] COUNT [address] [place] [address] HEMATOCRI T CARBON 59506 [facility] DIOXIDE [address] [place] [address] [place] [address] [facility] UREA [address] [place] [address] NITROGEN QUANTITAT CHERELLE MYOCRD 37391 GEORGE VAZQUEZ PRFUJ STD 9 [facility] WALL INC INC MOTION QUAL/SANTIAGO STD MYOCRD 14119 GEORGE VAZQUEZ PRFUJ IMG 9 [facility] TOMOG INC INC 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 CV STRS 39239 GEORGE VAZQUEZ TST 9 [facility] XERS&/OR INC INC RX CONT ECG TRCG ONLY MYOCRD 38701 GEORGE VAZQUEZ PRFUJ STD 9 [facility] EJEC FXJ INC INC RADIOLOGI 61419 GEORGE VAZQUEZ C EXAM 9 [facility] CHEST 2 INC INC VIEWS FRONTAL&L ATERAL RADEX 79640 GEORGE VAZQUEZ UPPER GI 9 [facility] W/WO INC INC GLUCAGON/ DELAY IMAGES W/KUB RADEX 34560 GEORGE VAZQUEZ SINUSES 9 [facility] PARANASAL INC INC COMPL MINIMUM 3 VIEWS APPL 24132 DAVEY MARISCAL MODALITY 8 CO CO 1/> [facility] ULTRASOUN D EA 15 MIN THERAPEUT 20106 DAVEY MARISCAL IC PX 1/> 8 CO CO [facility] EACH 15 MIN EXERCISES APPL 06123 DAVEY MARISCAL MODALITY 8 CO CO 1/> [facility] TRACTION MECHANICA L APPL 31739 DAVEY MARISCAL MODALITY 8 CO CO 1/> [facility] ULTRASOUN D EA 15 MIN PHYSICAL 31132 DAVEY MARISCAL THERAPY 8 CO CO [facility] N APPL 21704 DAVEY MARISCAL MODALITY 8 CO CO 1/> [facility] TRACTION MECHANICA L NRV CNDJ 67839 IVETH LAZARO, AMPLITUDE 8 BEBE BEBE & LATENCY EACH NERVE SENSORY NDL EMG 1 14396 IVETH LAZARO, XTR W/WO 8 BEBE BEBE RELATED PARASPINA L AREAS NRV CNDJ 73275 IVETH LAZARO, AMPLT&LAT 8 BEBE SPENCE ENCY EA NRV MOTOR W/[place] [address] GEORGE VAZQUEZ STREPTOCO 8 [facility] CCUS INC INC GROUP A COMPREHEN 73761 GEORGE VAZQUEZ SIVE 8 [facility] METABOLIC INC INC PANEL RADIOLOGI 03645 GEORGE VAZQUEZ C EXAM 8 [facility] CHEST 2 INC INC VIEWS FRONTAL&L ATERAL BLOOD 45761 GEORGE VAZQUEZ COUNT 8 [facility] H[facility] COMPLETE INC INC AUTO&AUTO DIFRNTL WBC 3D 33139 RYAN DAVIS, RENDERING 8 JAMES JAMES W/INTERP & POSTPROCE [place] SUPERVIS[place] MRI 11340 RYAN DAVIS SPINAL 8 JAMES JAMES CANAL CERVICAL W/O CONTRAST MATRL COLLECTIO 14171 DAVEY Murphy VENOUS 8 CO VA BLOOD [facility] VENIPUNCT URE BLOOD 12366 DAVEY MARISCAL COUNT 8 CO CO SMEAR [facility] MCRSCP W/MNL DIFRNTL WBC COUNT BLOOD 92874 DAVEY MARISCAL COUNT 8 CO CO [facility] AUTO&AUTO DIFRNTL WBC COMPOS A6201 DAVEY MARISCAL DRESS >16 8 CO CO [facility] </=48 SQ W/O ADHES BORDR EA RADIOLOGI 33740 Chan CANO 8 MEDICAL JAMES EXAMINATI IMAGING ON KNEE 3 ASSOCIATE VIEWS S PRESSURIZ 47408 FAMILY BALTAZAR, ED/NONPRE 8 CARE MARYSE Flowers SSURIZED ASSOCIATE INHALATIO S N TREATMENT ALBUTEROL J7620 FAMILY BALTAZAR, TO 2.5 8 CARE MARYSE Flowers MG & ASSOCIATE IPRATROPI S UM BROM TO 0.5 MG INJECTION J1100 FAMILY MULBERRY, 8 CARE MARYSE T DEXAMETHO ASSOCIATE GEE Garcia SODIUM PHOSPHATE 1 MG MRI 91709 PHYSICIAN GEORGETTE, SPINAL 8 S BEBE W CANAL SERVICES CERVICAL PSC W/[place] [address] PHYSICIAN GEORGETTE, GUIDANCE 8 S BEBE W NEEDLE SERVICES PLACEMENT PSC 3D 07965 PHYSICIAN PHYSICIAN RENDERING 8 S S W/INTERP SERVICES SERVICES & P[place] 3D 91469 PHYSICIAN PHYSICIAN RENDERING 8 S S W/INTERP SERVICES SERVICES & PSC [place] [address] PHYSICIAN GEORGETTE, GUIDANCE 8 S BEBE W NEEDLE SERVICES PLACEMENT PSC MRI 58331 PHYSICIAN PHYSICIAN SPINAL 8 S S CANAL SERVICES SERVICES LUMBAR PSC PSC W/O CONTRAST MATERIAL Encounters Encounter Start End Date Code Location Performer Type Date [facility]ICE 10763 [facility] PHYSICIAN T VISIT S GROUP 25 MINUTES [facility] GEORGE - 7 7 [facility] OUTPATIEN [facility] OFFICE 53901 [facility] MICHAELA OUTPATIEN 7 7 PHYSICIAN T VISIT S GROUP 25 MINUTES [facility] - 7 7 [facility] OUTPATIEN [facility] GEORGE - 7 7 [facility] OUTPATIEN [facility]OR[facility] - 6 6 [facility]PATIEN [facility] GEORGE - 6 6 [facility] OUTPATIEN [facility] GEORGE - 6 6 [facility] OUTPATIEN [facility] OFFICE 14147 [facility] MIC[facility]EL[facility] OUTPATIEN 6 6 PHYSICIAN MAT T VISIT S GROUP 25 MINUTES HOSPITAL [facility] - 6 6 [facility] OUTPATIEN [facility] GEORGE - 6 6 [facility] OUTPATIEN [facility] YUNI Hector 5 5 W [facility] GEORGE - 5 5 [facility] OUTPATIEN [facility] GEORE[facility] - 4 4 [facility] OUTPATIEN [facility] EMERGENCY 66831 [facility]AL 4 4 [facility] VISIT MODERATE SEVERITY [facility]OSPITAL GEORGE - 4 4 [facility] 4 [facility] - 3 3 [facility] - 3 3 [facility] - 3 [facility] 2 2 [facility] - 1 1 [facility] - 1 1 [facility] - 1 1 [facility] 1 [facility] 1 1 [facility] - 1 1 [facility] - 1 1 [facility] OUTPATIEN [facility] EMERGENCY 14786 DAVEY KUMARIT 1 1 CO VISIT HOSPITAL HIGH SEVERITY& THREAT FUNCJ EMERGENCY 61627 DAVEY PANTOJA 1 1 [facility] [place] VISIT HIGH/URGE NT SEVERITY CRITICAL DAVEY REDD 1 1 [facility] OUT[facility] T EMERGENCY 20585 WILLY JIMENEZ DEPT 1 1 EMERGENCY [facility] VISIT SERVICES HIGH SEVERITY& THREAT FUN EMERGENCY 16593 [facility] 1 1 [facility] DEPARTMEN INC T VISIT HIGH/URGE NT SEVERITY CRITICAL DAVEY ACCESS 1 1 [facility] EMERGENCY 65968 DAVEY 1 1 [facility] T VISIT MODERATE SEVERITY OFFICE 77782 GEORGE FERNANDEZ JR OUTPATIEN 1 1 [facility] T VISIT [facility] 15 P MINUTES [facility] - 0 0 [facility] OUTPATIEN INC EMERGENCY 17994 WILLY JIMENEZ, 0 0 EMERGENCY [facility] SERVICES T VISIT HIGH/URGE ASSOCIATE NT S SEVERITY EMERGENCY 02919 [facility] 0 0 [facility] DEPARTMEN INC T VISIT MODERATE SEVERITY OFFICE 17157 SHELLEY FERNANDEZ JR, OUTPATIEN 0 0 [facility] MARGARITA T 30 UROLOGY R MINUTES [facility] OFFICE 36960 FAMILY KIRTI, OUTPATIEN 0 0 CARE R BUFFY T VISIT [facility] 15 S MINUTES [facility] - 0 0 [facility] INC T OFFICE 30606 FAMILY KIRTI, OUTPATIEN 0 0 CARE R [facility]FF[facility] T VISIT ASSOCIATE 25 S MINUTES OFFICE 46077 FAMILY BALTAZAR, OUTPATIEN 0 0 CARE MARYSE T T VISIT ASSOCIATE 25 S MINUTES [facility] - 0 0 HOSPITAL INPATIENT EMERGENCY 64474 [facility] DEPT 0 0 [facility] VISIT INC HIGH SEVERITY& THREAT [facility] - 0 0 [facility]PATIEN [facility] 0 [facility] OUTPATIEN [facility] EMERGENCY 18972 DAVEY 0 0 [facility] T VISIT LOW/MODER SEVERITY CRITICAL DAVEY ACCESS 0 0 [facility] EMERGENCY 59111 DAVEY LEONARD CLAUDIA 0 0 [facility] T VISIT MODERATE SEVERITY [facility]OSPITAL [facility] - 0 0 [facility] 98062 [facility]ILY [facility], [facility]ARE [facility] T VISIT ASSOCIATE 15 S MINUTES OFFICE 29357 LEW HACKETT, LINDAAT 9 9 DAVID ORELLANA NEW/ESTAB PATIENT 30 MIN [facility] - 9 9 [facility] 95261 [facility] LISAMAICOL 9 9 PHYSICIAN ÁNGELA Flowers VISIT S GROUP 25 MINUTES [facility] [place] [id number] 9 [facility] [place] [facility] 9 [facility] [place] [facility] 9 9 [facility] [place] [facility] 9 9 [facility] CRITICAL DAVEY ACCESS 8 8 [facility] CRITICAL DAVEY ACCESS 8 8 [facility] OFFICE 92990 KAMRON AMEZCUA, CONSULTAT 8 8 MEDICAL XIMENA ORELLANA SERV NEW/ESTAB FOUNDATIO PATIENT 40 MIN OFFICE 10741 MAHENDRA MCCRAY OUTPATIEN 8 8 NOAH Vann T NEW 45 MINUTES OFFICE 91622 IVETH LAZARO, CONSULTAT 8 8 BEBE ORELLANA NEW/ESTAB PATIENT 80 MIN EMERGENCY 57094 PAVAN FLORES, 8 8 [facility] [facility] COR[facility]AT[facility] T VISIT ON HIGH/URGE NT SEVERITY [facility] - 8 8 [facility] OUT[facility] INC T EMERGENCY 08937 [facility] 8 8 [facility] INC T VISIT MODERATE SEVERITY OFFICE 81511 MAICOL SCHWARTZ 8 8 CARE R BUFFY T VISIT ASSOCIATE 15 S MINUTES EMERGENCY 57313 DAVEY 8 8 [facility] T VISIT LOW/MODER SEVERITY CRITICAL [facility] ACCESS 8 8 [facility] 99463 MAICOL SCHWARTZ 8 8 CARE R BUFFY T VISIT ASSOCIATE 15 S MINUTES EMERGENCY 46501 DAVEY 8 8 [facility] T VISIT MODERATE SEVERITY [facility] - 8 8 [facility] OUTPATIEN INC T OFFICE 18530 MAICOL BRANDT 8 8 CARE MARYSE T T VISIT ASSOCIATE 15 S MINUTES OFFICE 20272 PHYSICIAN PHYSICIAN OUTPATIEN 8 8 S S T VISIT SERVICES SERVICES 15 PSC PSC MINUTES OFFICE 34047 PHYSICIAN PHYSICIAN CONSULTAT 8 8 S S ION SERVICES SERVICES NEW/ESTAB PSC [id number] PATIENT [id number] [phone]
--- OUTSIDE RECORDS SUMMARY | 2016-11-01 10:32 | External Medical Summary Rpt ---
Author Author , Organization [employer] Address Unknown Phone Unavailable Care Team Providers Care Signal Maintenance Technician Name Role Phone CARMELLA, CARMELLA Unavailable Unavailable BESSONJUDITH A, Unavailable Unavailable BESSON, JUDITH A DE LA FUENTE, DE LA FUENTE Unavailable Unavailable DE LA FUENTE ALL, DE LA FUENTE ALL Unavailable Unavailable [facility] Un[facility] Unavailable [facility] Unavailable Unavailable SERVICE, [facility] Unavailable Unavailable CONSULTANTS O, [facility], Unavailable Unavailable [facility], Unavailable Unavailable [facility] Unavailable Unavailable LAB, [facility] HEREDIA FLAKITO, HEREDIA FLAKITO Unavailable Unavailable [facility] Unavailable Unavailable [facility], [facility] JIM SANTOS, JIM [...] FLORES DAVID P, Unavailable Unavailable NOAH MCCRAY [facility] Unavailable Unavailable INC, [facility] Unavailable [facility]available HOSPITAL P, [facility], Unavailable Unavailable [facility], Unavailable Unavailable [facility] DORITA LEANNA, DORITA LEANNA Unavailable Unavailable SHANNON III MARELY, Unavailable Unavailable SHANNON III MARELY [facility] Un[facility] Unavailable [facility], [facility] Unavailable Unavailable [facility], [facility] PAULINO WEN, PAULINO Unavailable Unavailable WEN PAULINO WEN, PAULINO Unavailable Unavailable WEN DEON JR, DEON JR Unavailable Unavailable SCARLETT CORAL, SCARLETT Unavailable Unavailable [facility] Unavailable Unavailable SERVICES, [facility] Unavailable Unavailable ASSOCI, [facility] Unavailable Unavailable MEDICAL, [facility] Un[facility]available [facility], [facility] Unavailable [facility]available [facility], [facility] MARYSE LEDESMA, Unavailable Unavailable MARYSE LEDESMA [facility], Un[facility]available [facility] Un[facility], Unavailable Unavailable BEBE LAZARO, AMRITA CORAL Unavailable Unavailable AMRITA BARKERS Unavailable Unavailable FLAKITO HEREDIA MD Unavailable Unavailable [...] [facility], Unavailable Unavailable [facility], Unavailable Unavailable [facility] XIMENA AMEZCUA, Unavailable Unavailable XIMENA AMEZCUA WELLS KIM Unavailable Unavailable BRIDGET VILLEGAS Unavailable Unavailable ÁNGEL HENDRIX, Unavailable Unavailable ÁNGEL HENDRIX Purpose Continuity of Care Document - 06-01-2007 through 2016 Problems Code Diagnosis DOS Provider Status E785 HYPERLIPIDE 09-07-2016 [facility] MODE PHYSICIANS UNSPECIFIED GROUP I10 ESSENTIAL 09-07-2016 [facility] PRIMARY PHYSICIANS HYPERTENSIO GROUP N 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 ANGINA PECTORIS Z950 PRESENCE OF 09-07-2016 [facility] CARDIAC PHYSICIANS PACEMAKER GROUP M109 GOUT 08-17-2016 [facility] UNSPECIFIED [facility]OCIATES M7989 OTHER 08-17-2016 [facility] SPECIFIED ASSOCIATES SOFT TISSUE DISORDERS I495 SICK SINUS 08-13-2016 [facility] SYNDROME PHYSICIANS GROUP J189 PNEUMONIA 08-10-2016 [facility] [place] [facility] ORGANISM [facility] J440 COPD WITH 08-10-2016 [place] ACUTE LOWER MEDICAL IMAGING ASS RESPIRATORY INFECTION J9811 ATELECTASIS 08-10-2016 [facility] Z720 TOBACCO USE 08-10-2016 [facility] O66422 PAIN IN 07-27-2016 [place] RIGHT LEG [facility]ICAL [facility] R600 LOCALIZED 07-27-2016 [facility] J90 PLEURAL 07-22-2016 [place] EFFUSION MEDICAL NOT IMAGING ASS ELSEWHERE CLASSIFIED R531 WEAKNESS 07-22-2016 [facility] [place] E039 HYPOTHYROID 07-19-2016 [facility] ISM [facility] UNSPECIFIED E876 HYPOKALEMIA 07-19-2016 [facility] I2119 [address] 07-19-2016 [facility] ELEVATION [facility]IATES GA INVOLV OTH CORONARY ART INF WALL I959 HYPOTENSION 07-19-2016 [facility] UNSPECIFIED J449 CHRONIC 07-19-2016 [facility] OBSTRUCTIVE ASSOCIATES PULMONARY DISEASE UNS R0602 SHORTNESS 07-19-2016 [place] OF BREATH [facility]ICAL [facility]ING ASS R0902 HYPOXEMIA 07-19-2016 [facility] R918 OTHER 07-19-2016 [place] NONSPECIFIC MEDICAL ABNORMAL IMAGING ASS FINDING OF LUNG FIELD R079 CHEST PAIN 07-18-2016 [place] UNSPECIFIED [facility]ICAL IMAGING ASS M4806 SPINAL 07-22-2015 [place] STENOSIS MEDICAL LUMBAR IMAGING ASS REGION M5126 OTH 07-22-2015 [place] INTERVERTEB MEDICAL RAL DISC IMAGING ASS DISPLACEMEN T LUMBAR RGN M545 LOW BACK 07-22-2015 [place] PAIN MEDICAL IM[facility]ING ASS M1611 UNILATERAL 07-10-2015 [place] PRIMARY MEDICAL OSTEOARTHRI IMAGING ASS TIS RIGHT HIP I86343 PAIN IN 07-10-2015 [place] RIGHT HIP MEDICAL IMAGING ASS A01308 SPONDYLOSIS 07-10-2015 [place] W/O MEDICAL MYELOPATH/R IMAGING ASS ADICULOPATH Y LUMB RGN M5136 OTH 07-10-2015 [place] INTERVERTEB MEDICAL RAL DISC IMAGING ASS DEGEN LUMBAR REGION M5137 OT 07-10-2015 [place] INTERVERTEB MEDICAL RAL DISC IMAGING ASS DEGEN LUMBOSACRAL REGION 4019 UNSPECIFIED 01-01-2015 [place] ESSENTIAL MEDICAL HYPERTENSIO IMAGING ASS N 496 CHRONIC 01-01-2015 [place] AIRWAY MEDICAL OBSTRUCTION IMAGING ASS NEC 7862 COUGH 01-01-2015 [facility] [place] [facility] 4010 ESSENTIAL 12-18-2014 [facility] HYPERTENSIO LAR N, [place] [address] COR 12-18-2014 [facility] ATHEROSLERO LAR UNSPEC CONSULTANTS TYPE VESSEL O UMATILLA TRIBE/SAAD T 61530 OTHER 12-18-2014 [facility] SPECIFIED LAR CARDIAC CONSULTANTS DYSRHYTHMIA O S 2440 POSTSURGICA 12-11-2014 [facility] L LAR HYPOTHYROID CONSULTANTS ISM O 4139 OTHER AND 12-04-2014 [facility] UNSPECIFIED REGIONAL ANGINA MEDICAL PECTORIS 79713 CORONARY 12-04-2014 [facility] ATHEROSCLER REGIONAL OSIS [place] TRIBE MEDICAL CORONARY ARTERY 27963 HTN CKD UNS 12-03-2014 [facility] STAGE I INC THRU STAGE IV/UNS 4372 HYPERTENSIV 12-03-2014 [facility] E [facility] ENCEPHALOPA INC THY 5859 CHRONIC 12-03-2014 [facility] DISEASE INC UNSPECIFIED 586 UNSPECIFIED 12-03-2014 [facility] RENAL LAR FAILURE CONSULTANTS O V1581 PERS HX 10-22-2014 [facility] NONCOMPLIAN LAR CE W/MED TX CONSULTANTS PRS O HAZARDS HLTH 6039 UNSPECIFIED 12-11-2013 [place] HYDROCELE [facility]ICAL [facility]AGING ASS 41290 OTHER 12-11-2013 [place] SPECIFIED MEDICAL DISORDER OF IMAGING ASS MALE [...] N OF RADIOLOGY CERVICAL INTERVERTEB RAL DISC 96627 DEGEN 02-07-2013 [facility] LUMBAR/LUMB RADIOLOGY OSACRAL INTERVERTEB RAL DISC 7245 UNSPECIFIED 02-07-2013 [facility] V5869 LONG-TERM 02-02-2013 [facility] (CURRENT) [facility] USE OF HOSPITAL OTHER MEDICATIONS 5758 OTHER 11-09-2012 [facility] SPECIFIED NEMESIO DISORDER OF GALLBLADDER 7904 NONSPEC 11-09-2012 [facility] E[facility]ATION [facility] OF LEVELS INC OF TRANSAMINAS E/LDH V745 SCREENING 10-27-2012 MEDICAL EXAMINATION DIAGNOSTIC FOR [facility] VENEREAL DISEASE 7234 BRACHIAL 07-14-2012 [facility]URITIS OR [facility] INC RADICULITIS NOS 4439 UNSPECIFIED 09-10-2011 [place] PERIPHERAL [facility]ICAL VASCULAR IMAGING ASS DISEASE 226 BENIGN 05-18-2011 PAULINO WEN NEOPLASM OF THYROID GLANDS 2410 NONTOXIC 05-18-2011 [facility] UNINODULAR H GO[facility] ANESTHESIA PSC 2459 UNSPECIFIED 05-18-2011 PA[facility] WEN THYROIDITIS 2449 UNSPECIFIED 05-15-2011 [facility] HYPOT[facility]OSP[facility] P ISM 60053 DIAB W/O 05-15-2011 [facility] TYPE [facility] II/UNS NOT HOSPITAL P STATED UNCNTRL 2724 OTHER AND 05-15-2011 [facility] UNSPECIFIED [facility] P HYPERLIPIDE MODE 4919 UNSPECIFIED 04-02-2011 [facility] CHRONIC [facility] BRONCHITIS INC 4928 OTHER 04-02-2011 [place] EMPHYSEMA [facility]ICAL [facility]ING [facility] 2409 GOITER, 04-01-2011 [place] UNSPECIFIED [facility]ICAL IMAGING ASS 2450 ACUTE 04-01-2011 PATHOLOGY & THYROIDITIS CYTOLOGY LAB 2388 NEOPLASM 03-02-2011 [facility] BEHAVIOR INC OTHER SPEC SITES 73994 THYROTOXICO 03-02-2011 [facility] S OTH [facility] ORIGIN W/ INC THYROTOX CRISIS/STOR M 2720 PURE 02-27-2011 [facility] HYPERCHOLES [facility] TEROLEMIA INC 80761 PAIN IN 02-03-2011 [place] JOINT, MEDICAL SHOULDER IMAGING ASS REGION 7802 SYNCOPE AND 02-02-2011 FLAKITO HEREDIA COLLAPSE [place] CONSULTING SRV 54477 CHEST PAIN 02-02-2011 FLAK[facility] HEREDIA UNSPECIFIED MD CONSULTING SRV 3319 UNSPECIFIED 01-23-2011 [place] [facility] DEGENERATIO ASSOCIAT N 7820 DISTURBANCE 01-23-2011 [facility] SKIN [facility] SENSATION 23691 FLUSHING 01-23-2011 [facility]OSPITAL 7840 HEADACHE 01-23-2011 [facility] 46478 SHORTNESS 01-23-2011 [facility] 09280 NAUSEA 01-23-2011 [facility] 7931 NONSPEC 01-23-2011 [place] FIND RAD RADIOLOGY OTH EXAM ASSOCIAT BODY STRUCT LUNG FIELD 8408 SPRAIN&STRA 01-12-2011 [facility] IN OTH SPEC MEM HOSP SITES INC SHOULDER&UP PER ARM 8409 SPRAIN&STRA 01-12-2011 [facility] IN UNSPEC EMERGENCY SITE SERVICES SHOULDER&UP PER ARM 8470 NECK SPRAIN 01-12-2011 [facility] 9222 CONTUSION 01-12-2011 [facility] OF EMERGENCY ABDOMINAL SERVICES WALL 07344 OTHER 01-12-2011 [place] INJURY OF MEDICAL CHEST WALL IMAGING ASS 9592 INJURY 01-12-2011 [facility] OTHER&UNSPE MEDICAL CIFIED IMAGING ASS SHOULDER&UP PER ARM 9596 INJURY 01-12-2011 [place] OTHER AND MEDICAL UNSPECIFIED IMAGING ASS HIP AND THIGH E9179 OTHER 01-12-2011 [facility] STRIKING EMERGENCY AGAINST SERVICES W/WO SUBSEQUENT FALL 88092 OSTEOARTHRO 01-10-2011 [facility] S UNSPEC HOSPITAL WHETHER GEN/LOC SHLDR REGION 7291 UNSPECIFIED 01-10-2011 [facility] 31541 GROSS 09-17-2010 [facility] P 51749 PAIN IN 11-26-2009 [facility] JOINT, NEMESIO LOWER LEG 04953 PAIN IN 11-22-2009 [facility] JOINT EMERGENCY PELVIC SERVICES REGION AND ASSOCIATES THIGH 8439 SPRAIN&STRA 11-22-2009 [facility] IN OF MEM HOSP UNSPECIFIED INC SITE OF HIP&THIGH 8449 SPRAIN&STRA 11-22-2009 [facility] IN OF MEM HOSP UNSPECIFIED INC SITE OF KNEE&LEG 9597 INJURY 11-22-2009 [facility] OTHER&UNSPE EMERGENCY CIFIED KNEE SERVICES LEG ASSOCIATES ANKLE&FOOT E8889 UNSPECIFIED 11-22-2009 [facility] FALL EMERGENCY SERVICES ASSOCIATES 88136 HEMATURIA 09-16-2009 [place] UNSPECIFIED [facility]ICAL IMAGING ASSOCIATES 22284 MICROSCOPIC 09-16-2009 [facility] HEMATURIA [facility]ATES 64483 ABDOMINAL 09-16-2009 [facility] PAIN RIGHT ASSOCIATES LOWER QUADRANT 2749 GOUT, 09-05-2009 [facility] UNSPECIFIED ASSOCIATES 65844 OSTEOARTHRO 09-05-2009 [facility] S UNSPEC ASSOCIATES WHETHER GEN/LOC UNSPEC SITE 16990 OTHER 08-19-2009 [facility] MALAISE AND [employer] [facility]ING 42627 SPASM OF 08-18-2009 [facility] MUSCLE [facility]ATES 45766 VOMITING 08-18-2009 [facility] ALONE [facility]ATES 4111 INTERMEDIAT 08-13-2009 NEW E CORONARY [place] [facility] PSC 89343 ATRIAL 08-13-2009 NEW FIBRILLATIO [place] N CLINIC PSC 86755 DEHYDRATION 08-12-2009 [facility] 98918 LEUKOCYTOSI 08-12-2009 [facility] UNSPECIFIED 48833 CHRONIC 08-12-2009 [facility] OBSTRUCTIVE [facility] ASTHMA UNSPECIFIED 5849 ACUTE 08-12-2009 [facility] FAILURE [facility] UNSPECIFIED PROF SERV 5939 UNSPECIFIED 08-12-2009 [facility] DISORDER EMERGENCY OF KIDNEY SERVICES AND URETER ASSOCIATES 21648 RHABDOMYOLY 08-12-2009 [facility] 7804 DIZZINESS 08-12-2009 [place] AND MEDICAL GIDDINESS IMAGING ASSOCIATES 56685 OTHER CHEST 08-12-2009 [facility] SERVICE V1582 PERS HX 08-12-2009 [facility] TOBACCO USE [facility] PRESENTING [facility] 06045 ABDOMINAL 07-14-2009 [facility] PAIN RIGHT MEDICAL UPPER IMAGING QUADRANT ASSOCIATES 22155 ABDOMINAL 07-10-2009 [facility] PAIN, MEM HOSP EPIGASTRIC INC 55755 UNSPECIFIED 07-05-2009 [facility] ARTHROPATHY SITE UNSPECIFIED 01358 EXOSTOSIS 04-04-2009 [facility], OF DAVID D UNSPECIFIED SITE 21947 EQUINUS 04-04-2009 [facility], DEFORMITY DAVID D OF FOOT, ACQUIRED 7851 PALPITATION 12-20-2008 [facility] 49771 ASTHMA, 12-03-2008 [facility] , UNSPECIFIED STATUS 89800 ESOPHAGEAL 05-24-2008 [facility] REFLUX [facility] V571 OTHER 05-13-2008 [facility] PHYSICAL [facility]OSPITAL THERAPY 3384 CHRONIC 03-08-2008 [facility], PAIN NOAH P SYNDROME 7238 OTHER 02-02-2008 ABDIAZIZ LAZARO AFFECTING CERVICAL REGION 28348 STOMATITIS 01-27-2008 For Your Imagination MUCOSITIS [place] UNSPECIFIED 97711 UNSPECIFIED 01-27-2008 [facility] ESOPHAGITIS INC 92443 ACUTE 01-27-2008 [facility] ESOPHAGITIS Sitesimon 4799 ALLERGIC 01-16-2008 [facility] RHINITIS ASSOCIATES CAUSE UNSPECIFIED 460 ACUTE 10-16-2007 [facility] NASOPHARYNG ASSOCIATES ITIS 8840 MX&UNSPEC 10-16-2007 [facility] OPEN WOUND HOSPITAL UPPER LIMB W/O MENTION COMP 67041 OBSTRUCTIVE 09-22-2007 [facility] CHRONIC ASSOCIATES BRONCHITIS WITH EXACERBATIO N 40461 POSTLAMINEC 06-29-2007 [facility] SARAH SERVICES SYNDROME PSC LUMBAR REGION 7242 LUMBAGO 06-29-2007 [facility]ICIANS SERVICES PSC 7246 DISORDERS 06-29-2007 [facility]ANS OF SACRUM SERVICES PSC 9532 INJURY TO 06-29-2007 [facility] LUMBAR SERVICES NERVE ROOT PSC 7211 CERVICAL 06-28-2007 [facility] SPONDYLOSIS SERVICES WITH PSC MYELOPATHY 30461 OTHER&UNSPE 06-28-2007 [facility]ANS CIFIED DISC SERVICES DISORDER PSC CERVICAL REGION 7230 SPINAL 06-28-2007 [facility] STENOSIS IN SERVICES CERVICAL PSC REGION 18680 OTHER&UNSPE 06-26-2007 PHYSICIANS CIFIED DISC SERVICES DISORDER PSC OF LUMBAR REGION 40166 SCOLIOSIS , 06-26-2007 [facility] IDIOPATHIC SERVICES PSC [...] 0 60 30 SO 38 NO Ac KS 76 -2 -2 .0 PE 80 RF ti AZ 23 5- 7- 00 RS 07 LE ve OL 72 20 20 ET AM 00 11 11 FA R 3 GA 0. LY HE 5 NR MG Y TA BL ET AL 59 09 09 0 60 30 SO 38 NO Ac KS 76 -2 -2 .0 PE 54 RF ti AZ 23 6- 8- 00 RS 11 LE ve OL 72 20 20 ET AM 00 11 11 FA R 3 GA 0. LY HE 5 NR MG Y TA BL ET AL 59 08 08 0 60 30 SO 38 NO Ac KS 76 -2 -2 .0 PE 24 RF ti AZ 23 6- 6- 00 RS 86 LE ve OL 72 20 20 ET AM 00 11 11 FA R 3 GA 0. LY HE 5 NR MG Y TA BL ET AL 59 07 07 0 60 30 SO 37 NO Ac KS 76 -2 -2 .0 PE 98 RF ti AZ 23 9- 9- 00 RS 57 LE ve OL 72 20 20 ET AM 00 11 11 FA R 3 GA 0. LY HE 5 NR MG Y TA BL ET AL 00 06 07 0 60 30 SO 37 NO Ac KS 78 -2 -0 .0 PE 72 RF ti AZ 11 8- 1- 00 RS 67 LE ve OL 07 20 20 ET AM 71 11 11 FA R 0 GA 0. LY HE 5 NR MG Y TA BL ET AL 00 05 05 0 60 30 SO 37 NO Ac KS 78 -3 -3 .0 PE 48 RF ti AZ 11 1- 1- 00 RS 56 LE ve OL 07 20 20 ET AM 71 11 11 FA R 0 GA 0. LY HE [address] Y UG TA ET AL 00 04 04 0 60 30 SO 37 NO Ac KS 78 -2 -2 .0 PE 22 RF ti AZ 11 9- 9- 00 RS 08 LE ve OL 07 20 20 ET AM 71 11 11 FA R 0 GA 0. LY HE [address] Y UG TA BL ET 64 06 06 0 18 5 SO 34 NO Ac 37 -0 -0 0. PE 43 RF ti 60 4- 4- 00 RS 12 LE ve 72 20 20 0 ET 71 10 10 FA R 6 GA LY HE NR DR Y UG AL 00 01 01 00 60 30 HO 10 NO Ac KS 78 -0 -1 .0 PK 03 RF ti AZ 11 8- 4- 00 IN 40 LE ve OL 07 20 20 S 2 ET AM [address] Alexandr 5 UG 0. HE 5 CO NR MG Y IN [facility] ET AL 00 12 12 00 60 30 HO 10 NO Ac KS 78 -0 -1 .0 PK 02 RF ti AZ 11 8- 7- 00 IN 37 LE ve OL 07 20 20 S 7 ET AM [address] Strange 5 UG 0. HE 5 CO NR MG Y IN [facility] ET AL 00 11 11 00 60 30 HO 10 NO Ac KS 78 -1 -1 .0 PK 01 RF ti AZ 11 0- 9- 00 IN 40 LE ve OL 07 20 20 S 8 ET AM [address] Strange 5 UG 0. HE 5 CO NR MG Y IN [facility] ET AL 00 10 10 00 60 30 HO 10 NO Ac KS 78 -0 -2 .0 PK 00 RF ti AZ 11 9- 2- 00 IN 20 LE ve OL 07 20 20 S 0 ET AM [address] Alexandr 5 UG 0. HE 5 CO NR MG Y IN TA [facility] ET AL 00 09 09 00 60 30 HO 99 NO Ac KS 78 -1 -2 .0 PK 91 RF ti AZ 11 1- 4- 00 IN 65 LE ve OL 07 20 20 S ET AM [address] Alexandr 5 UG 0. HE 5 CO NR MG Y IN TA [facility] ET AL 00 08 08 00 60 30 HO 99 NO Ac KS 78 -1 -2 .0 PK 81 RF ti AZ 11 1- 7- 00 IN 05 LE ve OL 07 20 20 S ET AM [address] R 5 UG 0. HE 5 CO NR MG Y IN TA C BL ET AL 59 02 02 00 60 30 CL 18 NO Ac KS 76 -1 -2 .0 IN 75 RF [...] 70 09 09 FA R TA 1 GA GA LY HE N- NR CA DR Y FF UG 50 -3 25 -4 0 60 02 02 00 18 5 SO 30 NO Ac 25 -1 -2 0. PE 56 RF ti 80 3- 6- 00 RS 47 LE ve 23 20 20 0 ET 91 09 09 FA R 6 GA LY HE NR DR Y UG 00 [...] ET 91 09 09 FA R 6 GA LY HE NR DR Y UG 00 [...] 00 60 30 CL 17 No Ac KS 76 -1 -0 .0 IN 46 t [...] Procedure DOS Code Location Performer Comment ECG 13495 [facility] ROUTINE 7 PHYSICIAN ECG S GROUP W/LEAST 12 LDS I&R ONLY ECG 43785 [facility] R[facility]INE 7 [facility] ECG INC INC W/LEAST 12 LDS TRCG ONLY W/O I&R ECG 29685 [facility] ECG S GROUP W/LEAST 12 LDS I&R ONLY THERAPEUT 78268 FAMILY FAMILY IC 7 CARE CARE PROPHYLAC ASSOCIATE ASSOCIATE TIC/DX S S INJECTION SUBQ/[place] [address] [facility] NEW/RPLCM 7 PHYSICIAN T PRM PM S GROUP W/TRANSV ELTRD ATRIAL&VE NT RADIOLOGI 46405 [place] [facility] 7 MEDICAL EXAMINATI IMAGING ON CHEST ASS SINGLE VIEW FRONTAL ECG 98099 [facility] ROUTINE 7 [facility] ECG INC INC W/LEAST 12 LDS TRCG ONLY W/O I&R RADIOLOGI 74391 [facility] C EXAM 7 [facility] CHEST 2 INC INC VIEWS FRONTAL&L ATERAL DUP-SCAN 04086 [place] [facility] XTR VEINS 7 MEDICAL IMAGING UNILATERA ASS L/LIMITED STUDY ECG 42630 [facility] ROUTINE 7 [facility] ECG INC INC W/LEAST 12 LDS TRCG ONLY W/O I&R HOSPITAL 05177 FAMILY FAMILY DISCHARGE 7 CARE CARE DAY ASSOCIATE ASSOCIATE MANAGEMEN S S T 30 MIN/< RADIOLOGI 39607 [place] [facility] C EXAM 7 MEDICAL CHEST 2 IMAGING VIEWS ASS FRONTAL&[place] [address] [facility] HEAD/BRAI 7 MEDICAL N W/O IMAGING CONTRAST ASS MATERIAL RADIOLOGI 20080 [facility] C EXAM 7 MEDICAL CHEST 2 IMAGING VIEWS ASS FRONTAL&L ATERAL ECG 96236 [facility] DEON SCHULTZ ROUTINE 7 [facility] W/LEAST P 12 LDS I&R ONLY RADIOLOGI 68892 JANICE DAVIS C 7 MEDICAL EXAMINATI IMAGING ON CHEST ASS SINGLE VIEW FRONTAL ECG 85464 [facility] ROUTINE 6 [facility] ECG INC INC W/LEAST 12 LDS TRCG ONLY W/O I&R ECG 56167 [facility] ROUTINE 6 [facility]OS[facility] ECG INC INC W/LEAST 12 LDS TRCG ONLY W/O I&R MRI 57268 JANICE DAVIS SPINAL 6 MEDICAL NEMESIO CANAL IMAGING LUMBAR ASS W/O CONTRAST MATERIAL 3D 21549 [facility] RENDERING 6 MEDICAL NEMESIO W/INTERP IMAGING & ASS POSTPROCE SS SUPERVISI ON RADEX 92692 [facility] ALL SPINE 6 MEDICAL LUMBOSACR IMAGING AL 2/3 ASS VIEWS RADEX HIP 29952 [facility] 6 [facility]OS[facility] UNILATERA INC INC L WITH PELVIS 2-3 VIEWS ECG 75080 [facility] ROUTINE 6 [facility]OS[facility] ECG INC INC W/LEAST 12 LDS TRCG ONLY W/O I&R RADEX 14888 [facility] SPINE 6 MEM HOSP MEM HOSP LUMBOSACR INC INC AL MINIMUM 4 VIEWS RADEX HIP 16248 [facility]ANICE DE [facility] ALL 6 MEDICAL UNILATERA IMAGING L WITH ASS PELVIS 1 VIEW ECG 15496 [facility] ROUTINE 6 [facility]OS[facility] ECG INC INC W/LEAST 12 LDS TRCG ONLY W/O I&R RADIOLOGI 96268 JANICE DE [place] [facility] ALL C EXAM 5 MEDICAL CHEST 2 IMAGING VIEWS ASS FRONTAL&L ATERAL ECG 47742 [facility] CARDIOVAS ROUTINE 5 CULAR CULAR ECG CONSULTAN CONSULTAN W/LEAST TS O TS O 12 LDS I&R ONLY ECG 86432 [facility] C[facility] ROUTINE 5 CULAR CULAR ECG CONSULTAN CONSULTAN W/LEAST TS O TS O 12 LDS I&R ONLY NONCOVERE A9270 [facility] MEADOWVIE D ITEM OR 5 W W SERVICE [facility] MEDICAL NONCOVERE A9270 [facility] MEADOWVIE D ITEM OR 5 W W SERVICE [facility] CATH PLMT 85918 CARDIOVAS CARDIOVAS L HRT & 5 CULAR CULAR ARTS CONSULTAN CONSULTAN W/NJX & TS O TS O ANGIO IMG S&I ECG 35452 [facility] CARDIOVAS ROUTINE 5 CULAR CULAR ECG CONSULTAN CONSULTAN W/LEAST TS O TS O 12 LDS [place] [address] [facility] SCROTUM & 4 [place] [address] [facility] ABDOMEN & 4 [facility] PELVIS INC INC W/O CONTRST 1/> BODY RE DUP-SCAN 04979 [facility] XTR VEINS 4 MEM HOS[facility] MEM HOS[facility] INC INC UNILATERA L/LIMITED STUDY NEEDLE 83231 [facility] MONCADA EMG EA 3 EXTREMTY W/PARASPI NL AREA COMPLETE NERVE 98330 [facility] CONDUCTIO 3 N STUDIES 11-12 STUDIES MRI 84301 [facility] [place] [facility] SPINAL 3 RADIOLOGY III MARELY CANAL LUMBAR W/O CONTRAST MATERIAL MRI 59781 [facility] [place] SPINAL [address] [place] [address] CERVICAL W/O CONTRAST MATRL RADEX 50206 [facility] [place] SPINE [address] [place] [address] CERVICAL [facility] 2 OR 3 VIEWS RADEX 76823 [facility] [place] SPINE 3 [facility]3 [place] [address] RYAN RYAN ABDOMINAL 3 NEMESIO NEMESIO REAL TIME W/IMAGE LIMITED IADNA 25922 [facility] [place] 3 DIAGNOSTI DIAGNOSTI [facility] HUMAN AMPLIFIED PROBE TQ IADNA NOS 63449 MEDICAL MEDICAL 3 DIAGNOSTI DIAGNOSTI AMPLIFIED [facility] PROBE TQ EACH ORGANISM MRI 22178 RYAN RYAN SPINAL 3 NEMESIO NEMESIO CANAL CERVICAL W/O CONTRAST MATRL 3D 75890 RYAN RYAN RENDERING 3 NEMESIO NEMESIO W/INTERP & POSTPROCE SS SUPERVISI ON NON-INVAS 98944 JANICE RYAN CHERELLE 2 MEDICAL NEMESIO PHYSIOLOG IMAGING IC STUDY ASS EXTREMITY 3 LEVLS THYROIDEC 89311 JEFFERSON PAULINO SARAH 2 WEN WEN SUBSTERNA L CERVICAL APPROACH PARATHYRO 93797 JEFFERSON PAULINO ID 2 WEN WEN AUTOTRANS PLANTATIO N ADD-ON ECG 10668 DORITA RAM ROUTINE 2 ECG W/LEAST 12 LDS I&R ONLY ECG 22845 GEORGE VAZQUEZ ROUTINE 1 [facility] W/LEAST P P 12 LDS I&R ONLY BLOOD 18537 GEORGE VAZQUEZ COUNT 1 [facility] HEMOGLOBI INC INC N CALCIUM 09594 GEORGE VA[facility]QUEZ IONIZED 1 [facility] INC INC BASIC 46381 GEORGE VAZQUEZ METABOLIC 1 [facility] PANEL INC INC CALCIUM TOTAL ECG 01859 GEORGE VAZQUEZ ROUTINE 1 [facility] ECG INC INC W/LEAST 12 LDS TRCG ONLY W/O I&R BLOOD 99516 GEORGE VAZQUEZ COUNT 1 [facility] [place] [address] GEORGE VAZQUEZ THYROID 1 [facility] STIMULAT[place] [address] GEORGE VAZQUEZ FREE 1 [facility] THYROXINE INC INC COLLECTIO 25228 GEORGE VAZQUEZ N VENOUS 1 [facility] BLOOD INC INC VENIPUNCT URE RADIOLOGI 92081 GEORGE VAZQUEZ C EXAM 1 [facility] CHEST 2 INC INC VIEWS [place]AL[place] [address] GEORGE VAZQUEZ THYROID 1 [facility] STIMULATI [place] [address] GEORGE VAZQUEZ FREE 1 [facility] THYROXINE INC INC COLLECTIO 55634 GEORGE VAZQUEZ N VENOUS 1 [facility] BLOOD INC INC VENIPUNCT URE US SOFT 67915 GEORGE VAZQUEZ TISSUE 1 [facility] HEAD & INC INC NECK REAL TIME IMGE DOCM FINE 62027 [facility] NEEDLE 1 MEDICAL NEMESIO ASPIRATIO IMAGING N WITH ASS [place] [address] [place] RYAN GUIDANCE 1 MEDICAL NEMESIO NEEDLE IMAGING PLACEMENT ASS IMG S&I MICROSOMA 46635 GEORGE VAZQUEZ L 1 [facility] ANTIBODIE INC INC S EACH FINE 74842 GEORGE VAZQUEZ NEEDLE 1 [facility] ASPIRATIO INC INC N W/O IMAGING GUIDANCE CYTP EVAL 90978 PATHOLOGY PATHOLOGY FINE 1 & & NEEDLE CYTOLOGY CYTOLOGY ASPIRATE LAB LAB INTERP & REPORT CT SOFT 94449 GEORGE VAZQUEZ TISSUE 1 [facility] NECK W/O INC INC CONTRAST MATERIAL CREATININ 37358 GEORGE BARNESON E BLOOD 1 [place] [address] GEORGE GEORGE UREA 1 [facility] NITROGEN INC INC QUANTITAT CHERELLE COLLECTIO 30089 GEORGE VAZQUEZ N VENOUS 1 [facility] BLOOD INC INC VENIPUNCT URE 3D 84382 GEORGE VAZQUEZ RENDERING 1 [facility] INC INC W/INTERP& [place] [address] GEORGE VAZQUEZ THYROXINE 1 [facility] [place] [address] GEORGE VAZQUEZ THYROID 1 [facility] STIMULATI INC INC NG HORMONE TSH CALCIUM 04089 GEORGE VAZQUEZ TOTAL 1 [facility] INC INC COLLECTIO 98238 GEORGE VAZQUEZ N VENOUS 1 [facility] BLOOD INC INC VENIPUNCT URE MICROSOMA 41155 GEORGE BARNESON L 1 [facility] ANTIBODIE INC INC S EACH US SOFT 55318 GEORGEJOSÉ LUIS BARNESON TISSUE 1 [facility] HEAD & INC INC NECK REAL TIME IMGE DOCM RADEX 59342 JANICE TRAMMELLUTCHER SPINE 1 MEDICAL NEMESIO CERVICAL IMAGING 4 OR 5 ASS VIEWS RADEX 18994 GEORGE VAZQUEZ SHOULDER 1 [facility] COMPLETE INC INC MINIMUM 2 VIEWS RADEX 59910 GEORGE VAZQUEZ SPINE 1 [facility] CERVICAL INC [place] 6 [place] [address] GEORGE VAZQUEZ THYROID 1 [facility] HOSP STIMULATI INC INC NG HORMONE TSH COLLECTIO 20099 GEORGE VAZQUEZ N VENOUS 1 [facility]OS[facility] BLOOD INC INC VENIPUNCT URE BASIC 12162 GEORGE VAZQUEZ METABOLIC 1 [facility] PANEL INC INC CALCIUM TOTAL HEPATIC 56289 GEORGE VAZQUEZ FUNCTION 1 [facility] PANEL INC INC LIPID 68309 GEORGE VAZQUEZ PANEL 1 [facility] INC INC ECG 28443 FLAKITO HEREDIA HEREDIA FLAKITO ROUTINE 1 MD ECG CONSULTIN W/LEAST G SRV 12 LDS I&R ONLY RADIOLOGI 70557 DAVEY MARISCAL C EXAM 1 CO CO CHEST 2 [facility] VIEWS FRONTAL&L ATERAL BLOOD 49852 DAVEY MARISCAL COUNT 1 CO CO COMPLETE [facility] AUTO&[place] [address] DAVEY MARISCAL TROPONIN 1 CO CO QUANTITAT [facility] CHERELLE MYOGLOBIN 88505 DAVEY MARISCAL 1 CO CO [facility] URNLS DIP 13842 DAVEY MARISCAL 1 CO CO STICK/TAB [facility] [place] [address] DAVEY MARISCAL INFUSION 1 CO CO THERAPY/P [facility] ROPHYLAXI S /DX 1ST TO 1 HR ECG 98416 DAVEY MARISCAL ROUTINE 1 CO CO ECG [facility] W/LEAST 12 LDS TRCG ONLY W/O I&R CREATINE 32497 DAVEY MARISCAL KINASE 1 [facility]PITAL ANTIBODY 04185 DAVEY MARISCAL HELICOBAC [address] [facility] PYLORI CREATINE 58221 DAVEY MARISCAL KINASE MB 1 CO [facility] FRACTION [facility] HOSPITAL ONLY COMPREHEN 88555 DAVEY FARRISOLAS SIVE 1 CO WA METABOLIC [facility] PANEL COLLECTIO 82320 DAVEY MARISCAL Katherine VENOUS 1 CO WA BLOOD [facility] [place] [address] DAVEY MARISCAL HEAD/BRAI 1 CO CO N W/O HOSPITAL HOSPITAL CONTRAST MATERIAL CERVICAL L0120 JAYLEN L.P. JAYLEN L.P. FLEXIBLE 1 NONADJUST ABLE PREFAB OFF SHELF 3D 55145 JANICE DAVIS RENDERING 1 MEDICAL NEMESIO IMAGING W/INTERP& [place] [address] JANICE DAVIS CERVICAL 1 MEDICAL NEMESIO SPINE W/[place] [address] GEORGE VAZQUEZ AMYLASE 1 [facility] INC INC COMPREHEN 73258 GEORGE VAZQUEZ SIVE 1 [facility] [address] [facility] DAVIS ABDOMEN & 1 MEDICAL NEMESIO PELVIS IMAGING W/O ASS CONTRAST MATERIAL RADIOLOGI 32995 [facility] DAVIS C EXAM 1 MEDICAL NEMESIO CHEST 2 IMAGING VIEWS ASS FRONTAL&L ATERAL RADEX 04969 [facility] DAVIS SHOULDER 1 MEDICAL NEMESIO COMPLETE IMAGING MINIMUM 2 ASS VIEWS RADIOLOGI 49823 [facility] DAVIS C 1 MEDICAL NEMESIO EXAMINATI IMAGING ON PELVIS ASS 1/2 VIEWS THERAPEUT 83718 GEORGE VAZQUEZ IC 1 [facility] INJECTION INC INC IV PUSH EACH NEW DRUG BLOOD 17450 GEORGE VAZQUEZ COUNT 1 [facility] COMPLETE INC INC AUTO&[place] [address] GEORGE VAZQUEZ INFUSION 1 [facility]OS[facility] THERAPY/P INC INC ROPHYLAXI S /DX 1ST TO 1 [place] [address] GEORGE VAZQUEZ LIPASE 1 [facility] INC INC MRI ANY 54892 RYAN BUTLERCHER JT LOWER 0 NEMESIO NEMESIO EXTREM W/O CONTRAST MATRL RADIOLOGI 81152 GEORGE VAZQUEZ C 0 [facility] EXAMINATI INC INC ON KNEE 3 VIEWS RADEX HIP 14464 GEORGE VAZQUEZ 0 [facility] UNILATERA INC INC L COMPLETE MINIMUM 2 VIEWS KNEE L1830 GEORGE VAZQUEZ ORTHOSIS 0 [facility] IMMOBLIZE INC INC R CANVAS LONGTUDNL PREFAB DASH 40791 SHELLEY FERNANDEZ , POST-VOID 0 [facility] UROLOGY R RESIDUAL PSC URINE&/BL ADDER CAP BLOOD 98542 FAMILY MCNEILT, COUNT 0 CARE R BUFFY COMPLETE ASSOCIATE AUTO&[place] [address] GEORGE VAZQUEZ ABDOMEN 0 [facility] W/O INC INC CONTRAST MATERIAL URNLS DIP 52797 FAMILY COTTO, 0 CARE Alexandr BAER STICK/TAB ASSOCIATE LET RGNT S NON-AUTO W/O MICRSCP 3D 83332 GEORGE VAZQUEZ RENDERING 0 [facility] INC INC W/INTERP& POSTPROC DIFF WORK STATION CT PELVIS 09854 GEORGE VAZQUEZ W/O 0 [facility] [place] [address] COMBINED COMBINED BLOOD/URI 0 PHYSICIAN PHYSICIAN C ACID S LAB S LAB 25 59984 LAB ANNIE LAB ANNIE HYDROXY 0 AMERIC AMERIC INCLUDES HOLDING HOLDING FRACTIONS IF PERFORMED CYANOCOBA 08517 COMBINED COMBINED ELAINE 0 PHYSICIAN PHYSICIAN VITAMIN S LAB S LAB B-12 CREATINE 83720 COMBINED COMBINED KINASE 0 PHYSICIAN [place]YSIC[place] [address] COMBINED COMBINED FOLIC 0 PHYSICIAN PHYSICIAN ACID S LAB S LAB SERUM COMPREHEN 03775 COMBINED COMBINED SIVE 0 PHYSICIAN PHYSICIAN METABOLIC S LAB S LAB PANEL BLOOD 66462 FAMILY MONTALVOBERRY, COUNT 0 CARE MARYSE T COMPLETE ASSOCIATE AUTO&AUTO S DIFRNTL WBC COLLECTIO 70711 FAMILY LEDESMA, N VENOUS 0 CARE MARYSE Flowers BLOOD ASSOCIATE VENIPUNCT S URE BASIC 64635 COMBINED COMBINED METABOLIC 0 PHYSICIAN PHYSICIAN PANEL S LAB S LAB CALCIUM TOTAL ECG 93579 BUBBA HENDRIX ROUTINE 0 ÁNGEL ARCOS ECG CLINIC J W/LEAST PSC 12 LDS I&R ONLY ECG 76087 GEORGE BESSON, ROUTINE 0 [facility] W/LEAST PROF SERV 12 [facility] [place] I&[place] [address] GEORGE GEORGE TROPONIN 0 [facility] QUANTITAT INC INC CHERELLE BLOOD 56529 GEORGE VAZQUEZ COUNT 0 [facility] COMPLETE INC INC AUTO&AUTO DIFRNTL WBC RADIOLOGI 17450 GEORGE VAZQUEZ C EXAM 0 [facility] CHEST 2 INC INC VIEWS FRONTAL&L ATERAL CREATINE 36832 GEORGE VAZQUEZ KINASE 0 [facility]OS[facility] TOTAL INC INC 3D 26055 GEORGE VAZQUEZ RENDERING 0 [facility] W/INTERP INC INC & POSTPROCE SS SUPERVISI ON ECG 09297 GEORGE VAZQUEZ ROUTINE 0 [facility] ECG INC INC W/LEAST 12 [facility] TRCG ONLY W/O I&R INITIAL 33050 CARDIOLOG [facility] 0 Y [place] OBRIEN CARE/DAY OF [place] 70 MINUTES CRITICAL 29662 WILLY JIMENEZ CARE 0 EMERGENCY OLINDA S ILL/INJUR SERVICES ED PATIENT ASSOCIATE INIT S 30-74 MIN BASIC 16380 GEORGE VAZQUEZ METABOLIC 0 [facility] [address] GEORGE VAZQUEZ HEAD/BRAI 0 [facility] N W/O INC INC CONTRAST MATERIAL CREATINE 87570 GEORGE VAZQUEZ KINASE MB 0 [facility] FRACTION INC INC ONLY TECHNETIU A9537 GEORGE VAZQUEZ M TC-99M 0 [facility]OS[facility] MEBROFENI INC INC N DX UP TO 15 MCI HEPATBL 98789 GEORGE VAZQUEZ DUX SYS 0 [facility] [place] [address] GEORGE VAZQUEZ INFUSION 0 [facility] THERAPY/P INC INC ROPHYLAXI S /DX 1ST TO 1 [place] [address] DAVEY MARISCAL BLOOD/URI 0 CO CO C ACID [facility] COLLECTIO 34935 DAVEY MARISCAL N VENOUS 0 CO CO BLOOD [facility] [place] [address] GEORGE VAZQUEZ THYROID 0 [facility] STIMULATI [place] [address] GEORGE VAZQUEZ AMYLASE 0 [facility]OSP INC INC COLLECTIO 67711 GEORGE VAZQUEZ N VENOUS 0 [facility] [place] [address] JANICE RYAN, ABDOMINAL 0 MEDICAL JAMES REAL IMAGING TIME ASSOCIATE W/[place] [address] GEORGE VAZQUEZ LIPASE 0 [facility] HOSP INC INC XTRNL ECG 93477 GEORGE VAZQUEZ & 48 HR 9 [facility] RECORDING INC INC CLOSURE C[address] VASCULAR AORTOGRAP [address] ABDOMINAL SERIALOGR APHY RS&I GLUCOSE 26181 [facility] [address]IT[address] CHERELLE BLOOD XCPT REAGENT STRIP SODIUM [address] PLASMA OR WHOLE BLOOD INTRDUCR/ C1894 [facility] SHEATH [address] [place] [address] NOT GUID INTRACARD EP NON-LASR CREATININ 10617 [facility] E [address] INJECTION 42421 [facility] CARDIAC [address] [place] [address] CATHJ L VENTR/L ATR ANGIOGRAP H PLCMT G0269 [facility] OCCL DEVC [address] [place] [address] RG/ART POST SURG/INTR VNL PROC ANGIOGRAP [address] EXTREMITY UNILATERA L RS&I POTASSIUM [address] PLASMA/[place] [address] [facility] C-[address] F/SLCTV C ANGRPH I SI&R 77584 [facility] F/NJX PX [address] [place] [address] DURING C-CATHJ VENTR&/AT R ANGRPH I SI&R 01568 [facility] F/NJX PX [address] [place] [address] DURING C-CATHJ PULM&/OR SELECT L HRT 15234 [facility] CATHETERI [address] [place] [address] ZATION RETROGRAD E BRACHIAL PERQ BLOOD 79902 [facility] COUNT [address] [place] [address] HEMATOCRI T CARBON 76939 [facility] DIOXIDE [address] [place] [address] [place] [address] [facility] UREA [address] [place] [address] NITROGEN QUANTITAT CHERELLE MYOCRD 36656 GEORGE VAZQUEZ PRFUJ STD 9 [facility] WALL INC INC MOTION QUAL/SANTIAGO STD MYOCRD 93716 GEORGE VAZQUEZ PRFUJ IMG 9 [facility] HOSP TOMOG INC INC SPECT TRAM INSPECTOR STD CV STRS 97986 GEORGE VAZQUEZ TST 9 [facility]OS[facility] XERS&/OR INC INC RX CONT ECG TRCG ONLY MYOCRD 88812 GEORGE VAZQUEZ PRFUJ STD 9 [facility]OSP EJEC FXJ INC INC RADIOLOGI 40199 GEORGE VAZQUEZ C EXAM 9 [facility]OSP CHEST 2 INC INC VIEWS FRONTAL&L ATERAL RADEX 87498 GEORGE VAZQUEZ UPPER GI 9 [facility]OS[facility] W/WO INC INC GLUCAGON/ DELAY IMAGES W/KUB RADEX 13964 GEORGE VAZQUEZ SINUSES 9 [facility] HOSP PARANASAL INC INC COMPL MINIMUM 3 VIEWS APPL 71001 DAVEY MARISCAL MODALITY 8 CO CO 1/> [facility] ULTRASOUN D EA 15 MIN THERAPEUT 24171 DAVEY MARISCAL IC PX 1/> 8 CO CO [facility] EACH 15 MIN EXERCISES APPL 47907 DAVEY MARISCAL MODALITY 8 CO CO 1/> [facility] TRACTION MECHANICA L APPL 99000 DAVEY MARISCAL MODALITY 8 CO CO 1/> [facility] ULTRASOUN D EA 15 MIN PHYSICAL 26984 DAVEY MARISCAL THERAPY 8 CO CO [facility] N APPL 54196 DAVEY MARISCAL MODALITY 8 CO CO 1/> [facility] TRACTION MECHANICA L NRV CNDJ 22722 IVETH LAZARO, AMPLITUDE 8 BEBE BEBE & LATENCY EACH NERVE SENSORY NDL EMG 1 13635 IVETH LAZARO, XTR W/WO 8 BBEE BEBE RELATED PARASPINA L AREAS NRV CNDJ 54837 IVETH LAZARO, AMPLT&LAT 8 BEBE SPENCE ENCY EA NRV MOTOR W/[place] [address] GEORGE VAZQUEZ STREPTOCO 8 [facility] CCUS INC INC GROUP A COMPREHEN 70268 GEORGE VAZQUEZ SIVE 8 [facility] METABOLIC INC INC PANEL RADIOLOGI 75249 GEORGE VAZQUEZ C EXAM 8 [facility] HOSP CHEST 2 INC INC VIEWS FRONTAL&L ATERAL BLOOD 02238 GEORGE VAZQUEZ COUNT 8 [facility] COMPLETE INC INC AUTO&AUTO DIFRNTL WBC 3D 29332 RYAN DAVIS, RENDERING 8 JAMES JAMES W/INTERP & POSTPROCE SS SUPERVISI [place] MRI 99581 RYAN DAVIS SPINAL 8 JAMES JAMES CANAL CERVICAL W/O CONTRAST MATRL COLLECTIO 94259 DAVEY Murphy VENOUS 8 CO WA BLOOD [facility] VENIPUNCT URE BLOOD 71371 DAVEY MARISCAL COUNT 8 CO CO SMEAR [facility] MCRSCP W/MNL DIFRNTL WBC COUNT BLOOD 95878 DAVEY MARISCAL COUNT [address] [facility] AUTO&AUTO DIFRNTL WBC COMPOS A6201 DAVEY MARISCAL DRESS >16 8 CO CO [facility] </=48 SQ W/O ADHES BORDR EA RADIOLOGI 39232 Chan CANO 8 MEDICAL JAMES EXAMINATI IMAGING ON KNEE 3 ASSOCIATE VIEWS S PRESSURIZ 55145 FAMILY BALTAZAR, ED/NONPRE 8 CARE MARYSE Flowers SSURIZED ASSOCIATE INHALATIO S N TREATMENT ALBUTEROL J7620 FAMILY BALTAZAR, TO 2.5 8 CARE MARYSE Flowers MG & ASSOCIATE IPRATROPI S UM BROM TO 0.5 MG INJECTION J1100 FAMILY MULBERRY, 8 CARE MARYSE T DEXAMETHO ASSOCIATE GEE Garcia SODIUM PHOSPHATE 1 MG MRI 26294 PHYSICIAN GEORGETTE, SPINAL 8 S BEBE W CANAL SERVICES CERVICAL PSC W/[place] [address] PHYSICIAN GEORGETTE, GUIDANCE 8 S BEBE W NEEDLE SERVICES PLACEMENT PSC 3D 77197 PHYSICIAN PHYSICIAN RENDERING 8 S S W/INTERP SERVICES SERVICES & P[place] 3D 05981 PHYSICIAN PHYSICIAN RENDERING 8 S S W/INTERP SERVICES SERVICES & P[place] [address] PHYSICIAN GEORGETTE, GUIDANCE 8 S BEBE W NEEDLE SERVICES PLACEMENT PSC MRI 35720 PHYSICIAN PHYSICIAN SPINAL 8 S S CANAL SERVICES SERVICES LUMBAR PSC PSC W/O CONTRAST MATERIAL Encounters Encounter Start End Date Code Location Performer Type Date [facility] T VISIT S GROUP [facility] MINUTES [facility] GEORGE - 7 7 [facility] OUTPATIEN [facility] OFFICE 52300 [facility] MICHAELA OUTPATIEN 7 7 PHYSICIAN T VISIT S GROUP 25 MINUTES [facility] - 7 7 [facility] - 7 7 [facility] - 6 6 [facility] - 6 6 [facility] - 6 6 [facility] OUTPATIEN [facility] OFFICE 81559 [facility] MICHAELA OUTPATIEN 6 6 PHYSICIAN MAT T VISIT S GROUP 25 MINUTES [facility]OSPITAL [facility] - 6 6 [facility] - 6 6 [facility] Y[facility] Hector 5 5 [facility] 5 5 [facility] - 4 4 [facility] OUTPATIEN [facility] EMERGENCY 58024 BRIDGET SUSU BRIDGET CRISTOBAL 4 4 [facility]ENC[facility] DEPARTMENT VISIT MODERATE SEVERITY [facility] - 4 4 [facility] 4 4 [facility] [place] [facility] 3 [facility] 3 3 [facility] - 3 3 [facility] - 3 3 [facility] - 2 2 [facility] - 1 1 [facility] - 1 1 [facility] - 1 1 [facility] - 1 1 [facility] - 1 1 [facility] - 1 1 [facility] - 1 1 [facility] - 1 1 [facility]PATIEN [facility] EMERGENCY 59749 DAVEY KUMARIT 1 1 CO VISIT HOSPITAL HIGH SEVERITY& THREAT FUNCJ EMERGENCY 69348 DAVEY PANTOJA 1 1 [facility] VISIT HIGH/URGE NT SEVERITY CRITICAL DAVEY REDD 1 1 [facility] GEORGE - 1 1 [facility] OUTPATIEN INC T EMERGENCY 35931 WILLY JIMENEZ DEPT 1 1 EMERGENCY RUFINO VISIT SERVICES HIGH SEVERITY& THREAT FUN EMERGENCY 50511 GEORGE 1 1 [facility] DEPARTMEN INC T VISIT HIGH/URGE NT SEVERITY CRITICAL DAVEY ACCESS 1 1 [facility] EMERGENCY 28257 DAVEY 1 1 [facility] T VISIT MODERATE SEVERITY OFFICE 44705 GEORGE FERNANDEZ JR OUTPATIEN 1 1 [facility] T VISIT [facility] 15 P MINUTES [facility] GEORGE - 0 0 [facility] OUTPATIEN INC EMERGENCY 39390 WILLY JIMENEZ, 0 0 [facility] T VISIT HIGH/URGE ASSOCIATE NT S SEVERITY EMERGENCY 34132 GOERGE 0 0 [facility] DEPARTMEN INC T VISIT MODERATE SEVERITY OFFICE 12066 SHELLEY FERNANDEZ JR, OUTPATIEN 0 0 [facility] MARGARITA T 30 UROLOGY R MINUTES [facility] OFFICE 91724 FAMILY KIRTI, OUTPATIEN 0 0 CARE R BUFFY T VISIT [facility] 15 S MINUTES HOSPITAL [facility]GE - 0 0 [facility] OUTPATIEN INC T OFFICE 68012 FAMILY KIRTI, OUTPATIEN 0 0 CARE R BUFFY T VISIT ASSOCIATE 25 S MINUTES OFFICE 00386 FAMILY BALTAZAR, OUTPATIEN 0 0 CARE MARYSE T T VISIT ASSOCIATE 25 S MINUTES [facility] - 0 0 HOSPITAL INPATIENT EMERGENCY 85601 GEORGE DEPT 0 0 [facility] VISIT INC HIGH SEVERITY& THREAT FUN [facility]OS[facility] - 0 0 [facility] OUTPATIEN INC [facility] - 0 0 [facility] OUTPATIEN [facility] EMERGENCY 69604 DAVEY 0 0 [facility] T VISIT LOW/MODER SEVERITY CRITICAL DAVEY ACCESS 0 0 [facility] EMERGENCY 74635 DAVEY LEONARD CLAUDIA 0 0 [facility] T VISIT MODERATE SEVERITY [facility] - 0 0 [facility] 82829 FAMILY KIRTI, OUTARH [facility] CARE R BUFFY T VISIT ASSOCIATE 15 S MINUTES OFFICE 26598 LEW HACKETT, LINDAAT 9 9 DAVID ORELLANA NEW/ESTAB PATIENT 30 MIN [facility] - 9 9 [facility] 93243 [facility] LISAMAICOL 9 9 PHYSICIAN ÁNGELA Flowers VISIT S GROUP 25 MINUTES [facility] [place] [address] 9 [facility] [place] [facility] 9 [facility] [place] [facility] 9 9 [facility] CRITICAL [facility]AVEY ACCESS 8 8 [facility] CRITICAL DAVEY ACCESS 8 8 [facility] OFFICE 50093 KAMRON AMEZCUA, CONSULTAT 8 8 MEDICAL XIMENA ORELLANA SERV NEW/ESTAB FOUNDATIO PATIENT 40 MIN OFFICE 70719 MAHENDRA MCCRAY OUTPATIEN 8 8 NOAH Vann T NEW 45 MINUTES OFFICE 26490 IVETH LAZARO, CONSULTAT 8 8 BEBE ORELLANA NEW/ESTAB PATIENT 80 MIN EMERGENCY 33357 PAVAN FLORES, 8 8 [facility] T VISIT ON HIGH/URGE NT SEVERITY [facility]OSPITAL [facility] - 8 8 [facility] OUTPATIEN INC T EMERGENCY 95414 GEORGE 8 8 [facility] T VISIT MODERATE SEVERITY OFFICE 20417 MAICOL SCHWARTZ 8 8 CARE R BUFFY T VISIT ASSOCIATE 15 S MINUTES EMERGENCY 50193 DAVEY 8 8 [facility] T VISIT LOW/MODER SEVERITY CRITICAL [facility] ACCESS [facility] 8 [facility] [id number] MAICOL SCHWARTZ 8 8 CARE R BUFFY T VISIT ASSOCIATE 15 S MINUTES EMERGENCY 25864 DAVEY 8 8 [facility] T VISIT MODERATE SEVERITY HOSPITAL [facility] - 8 8 [facility] T OFFICE 47564 MAICOL BRANDT 8 8 CARE MARYSE T T VISIT ASSOCIATE 15 S MINUTES OFFICE [id number] PHYSICIAN PHYSICIAN OUTPATIEN 8 8 S S T VISIT SERVICES SERVICES 15 PSC PSC MINUTES OFFICE [id number] PHYSICIAN PHYSICIAN CONSULTAT 8 8 S S ION SERVICES SERVICES NEW/ESTAB PSC PSC PATIENT 40 MIN
--- NOTE | 2016-11-01 10:35 | Emergency Room Report ---
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 PT REPORTS FELT LIKE HIS HEART WAS BEATING TO HARD OR HIS PACEMAKER WAS "KICKING IN" PT REPORTS HAS FELT NAUSEATED THIS MORNING. 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 N Clinical Suspician of Infection? N Mental Status: 1 - Regular (Normal Baseline) Sepsis Risk:Low Sepsis Risk Have you (or family members/close friends) recently traveled outside the [place]? N If Yes, where/when: Have you had exposure to infectious disease within the past month? N TB? Other? Specify: Patient's chest pain onset was at 0730 while setting tile in a ceiling, noted some palpitations, has hx of PM per Dr. Gaytan. Pain left sided, associated with nausea and diaphoresis. Positive relief with NTG prior to arrival. ALLERGIES Coded Allergies: allopurinol (08/13/16) indomethacin (From INDOCIN) (08/13/16) morphine (08/13/16) pravastatin (08/13/16) Home Medications Active Scripts Ticagrelor (Brilinta) 90 MG PO BID #60 TAB Ref 2 Prov: 07/24/16 Carvedilol (Carvedilol 6.25MG) 6.25 MG PO BID #60 TAB Ref 2 Prov: 07/24/16 Reported Medications Levothyroxine Sodium 0.2 MG PO DAILY #30 Gabapentin (Gabapentin 400MG Capsule) 400 MG PO 5XDAILY #150 NITROGLYCERIN (Nitrostat) 0.4 MG PO PRN PRN CHEST PAIN Montelukast Sodium (Singulair 10MG) 10 MG PO QHS Cyclobenzaprine Hcl (Flexeril) 10 MG PO QHS ALLOPURINOL (Allopurinol 100MG) 200 MG PO DAILY Omeprazole (Omeprazole 40MG) 40 MG PO DAILY HYDROCODONE/ACETAMINOPHEN (Hydrocodon-Acetaminoph 7.5-325) 1 TAB PO TID PRN PRN PAIN #90 TAB IBUPROFEN (Ibuprofen 600MG) 600 MG PO TIDP PRN HEADACHE ALBUTEROL-IPRATROPIUM (Combivent Inhaler) 1 PUFFS IN 4 TIMES DAILY ASPIRIN (Aspirin) 81 MG PO DAILY Trazodone Hcl (Trazodone HCl) 100 MG PO QHS Alprazolam (Xanax 0.5MG) 0.5 MG PO TID Olanzapine (Zyprexa 10MG) 10 MG PO QHS Ezetimibe (Zetia) 10 MG PO DAILY TIZANIDINE HCL (Tizanidine Hcl 4 Mg Tablet) 4 MG PO DAILY #30 History Medical History General CAD? Yes Angina: Yes [place]: Yes Hypertension? Yes Hyperlipidemia? Yes CHF? Yes DVT? No PE? No COPD? Yes Asthma? No Anemia? No GERD? No Gastric ulcers? No GI Bleed? No Hernia? Yes Thyroid Problems? Yes Hypothyroidism? Yes CVA? Yes Seizures? No Diabetes? No Renal Insuffiency? No End Stage Renal Disease? No UTI? No Stones? No BPH? No GB Disease: No Nephritic Syndrome? No Asplenia? No Hepatitis? Yes Sickle Cell Disease? No Arthritis? Yes Migraines? No Cataracts? No Glaucoma? No MRSA? Yes HIV? No TB? No Anxiety? Yes Depression? No Cancer? Yes Site: SKIN-NECK/FACE More? No Additional hx: Tobacco use disorder Immunization Hx DT/Tetanus 5-10 Years Ago Flu [id number] Pneumonia Received In Past Surgical Hx Previous Surgery?Y BACK-HERNIATED DISCSX2 BILATERAL KNEE REPLACE- MENTS LEFT FOOTX4 RIGHT INGUINAL HERNIA X3 CHEST TUMOR REMOVED LEFT THUMB HEART STENTS PARTIAL THYROIDECTOMY PACEMAKER Family History Family Hx Diabetes No CAD Yes Hypertension Yes Hyperlipidemia Yes Cancer Yes TB No Social History Smoking Hx Smoker: Current Every Day Smoker Tobacco: Yes Type Cigarettes Packs/day < 1 Pack Alcohol Alcohol: No Review of Systems All Other Systems Reviewed and Negative Cardiovascular see HPI Physical Exam Vital Signs Vital Signs Date Time Temp Pulse Resp B/P Pulse O2 O2 Flow FiO2 Ox Delivery Rate 11/01 1200 73 20 143/70 100 11/01 1143 71 20 123/80 100 11/01 1033 72 18 116/73 97 11/01 0941 98.2 95 18 136/73 93 General Appearance normal appearance, WD/WN, no apparent distress Eye Exam - bilateral eye normal exam, bilateral eye PERRL, bilateral eye EOMI Neck normal inspection, non-tender, supple, full range of motion Respiratory Status Yes: trachea midline, chest symmetrical, non tender chest. No: respiratory distress, tender on palpation, use of accessory muscles, pain on inspiration, pain on expiration, productive cough, non productive cough. Lung Sounds bilateral: normal breath sounds, lungs clear. Cardiovascular normal exam, regular rate/rhythm, no peripheral edema, no gallop, no JVD, no murmur, no rub, normal peripheral pulses (HR 70 NSR on marilou) Gastrointestinal normal bowel sounds, normal exam, non tender, soft, no organomegaly, no pulsatile mass, no guarding, no rebound Extremities non-tender, normal range of motion, normal inspection, normal capillary refill, no calf tenderness, no pedal edema Neurologic alert, normal exam, no motor/sensory deficits, oriented x 3 Skin intact, normal color, warm/dry Medical Decision Making LABS/Meds/Orders Pt receiving controlled substance in ED? No Results/Orders Laboratory Tests 11/01/16 1140: Troponin I < 0.02 11/01/16 0940: Sodium 141, Potassium 4.0, Chloride 104, Carbon Dioxide 27, BUN 24 H, Creatinine 1.0, Estimated Creat Clear 81, Estimated GFR (MDRD) 74, Glucose 108 H, Calcium 9.2, Total Bilirubin 0.6, AST 9 L, ALT 15, Alkaline Phosphatase 59, Creatine Kinase 234, CK-MB (CK-2) Rel Index 1.7, CK and CKMB Interp 4.0 H, Troponin I < 0.02, Total Protein 7.5, Albumin 3.4, Globulin 4.1 H, Albumin/ Globulin Ratio 0.8 L, WBC 9.8, RBC 3.71 L, Hgb 11.4 L, Hct 34.6 L, MCV 93.4, RDW 14.5, Plt Count 266, MPV 6.7 L, Gran % 77.2, Gran # 7.6, Lymphocytes % 14.3 , Monocytes % 5.5, Eosinophils % 2.6, Basophils % 0.3, Lymphocytes # 1.4, Monocytes # 0.5, Eosinophils # 0.3, Basophils # 0.0, PUBS MCHC 32.8, MCH 30.6 Current Medication Orders Sig/Antonio Start time Last Medication Dose Route Stop Time Status Admin Metoprolol Tartrate 0 .STK-MED ONE 11/01 1153 DC .ROUTE Metoprolol Tartrate 0 .STK-MED ONE 11/01 1153 DC IV Metoprolol Tartrate 25 MG ONCE ONE 11/01 1145 DC PO 11/01 1146 Metoprolol Tartrate 25 MG ONCE ONE 11/01 1100 DC 11/01 PO 11/01 1101 1155 Metoprolol Tartrate 5 MG ONCE ONE 11/01 1100 DC 11/01 IV 11/01 1101 1155 Sodium Chloride 10 ML PRN PRN 11/01 0945 AC IV 11/02 0941 Orders Procedure Date/time Status TROPONIN I 11/01 1134 Complete ELECTROCARDIOGRAM REQUEST 11/01 0941 Active CHEST-PORTABLE 11/01 0941 Active IV SALINE LOCK 11/01 0941 Active 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 of ischemic chgs, no ectopy, normal QRS, normal NH, normal EKG (NSR 74) CM/EKG 2 EKG rate (116), no evid. of ischemic chgs (paced ventricular 116) XRAY/CT/US XRAY/CT/US XRAY chest XR interpretation by reviewed by me Xray Results normal/NAD, no infiltrates, normal heart size, normal lung inflation ambar (pos PM) Consult MD Physician Consult Reason Pt. Condition Comments Cardiology consult Pulmonary Embolism Score WELL'S CRITERIA FOR PE WELL'S CRITERIA FOR PE Response Value Clinical signs/symptoms of DVT NO 0 PE is #1 diagnosis or equally likely NO 0 Heart rate is > 100 YES 1 Immobile at least 3 days, or surgery in past 4 wks NO 0 Previously, obj. diagnosed PE or DVT NO 0 Hemoptysis NO 0 Malignancy w/Rx within 6mo, or palliative NO 0 Total 1 Patient's PE Risk 1-2pts=MOD RISK (28%) (no longer has tachycardia: 0) Progress ED Progress Notes 1 Date 11/01/16 Time 1100 Comment Ra Coleman from cardiology has evaluated patient and is requesting Metoprolol PO and Lopressor IV, will return to interrogate PM. Patient stable with no chest pain at this time. ED Progress Notes 2 Date 11/01/16 Time 1215 Comment Ra Coleman has assessed PM and recommended Metoprolol 50 mg PO BID/f/u in 24 hours as long as second troponin normal. ED Progress Notes 3 Date 11/01/16 Time 1215 Comment HR in 80's so will hold second PO dose of betablocker; second troponin normal; stable for d/c. Departure Departure Time of Disposition 1215 Disposition DC Home or Self Care(routine) Clinical Impression Primary Impression: Tachycardia Condition STABLE Referrals David JERNIGAN,Madiha Martin (Family) Laith Gaytan MD Patient Instructions DI for Palpitations Additional Instructions Rx Metoprolol; see Dr. Gaytan for follow up in 24 hours, call for appointment per Ra Coleman. Discharge Counseling Counseled pt/family regarding diagnosis, test results, medications/RX, home care, follow up needs Prescriptions Current Visit Scripts Metoprolol Tartrate (Metoprolol) 25 MG PO BID #20 TAB ED Critical Care Critical Care Yes Time spent < 30 min Vital system(s) involved: Circulatory Failure (rapid heart rate) I was present at bedside for Coordinating pt's care, During my initial exam, Reviewing lab results, Discussing pt condition, For re-examinations, Examining radiographs (consult) at 1214
--- OUTSIDE RECORDS SUMMARY | 2016-11-01 10:39 | External Medical Summary Rpt ---
Author Author , Organization [employer] Address Unknown Phone Unavailable Care Team Providers Care Hand Surgeon Name Role Phone CARMELLA WEIR Unavailable Unavailable BENAILA COOL, CARMELLA Unavailable Unavailable JUDITH MENEZES, Unavailable Unavailable JUDITH DOWNEY A DE LA FUENTE, DE LA FUENTE Unavailable Unavailable DE LA FUENTE ALL, DE LA FUENTE ALL Unavailable Unavailable [facility] Unavailable Unavailable [facility] Unavailable Unavailable SERVICE, [facility] Unavailable Unavailable CONSULTANTS O, [facility], Unavailable Unavailable [facility], Unavailable Unavailable [facility] Unavailable Unavailable LAB, [facility] HEREDIA FLAKITO, HEREDIA FLAKITO Unavailable Unavailable [facility] Unavailable Unavailable [facility], [facility] JIM YAN JR Unavailable Unavailable MARGARITA ESPINOZA JR, Unavailable Unavailable MARGARITA FERNANDEZ JR, CRUTCHER Unavailable Unavailable RYAN NEMESIO, Unavailable Unavailable RYAN NEMESIO RYAN NEMESIO, Unavailable Unavailable RYAN NEMESIO JAMES DAVIS, Unavailable Unavailable RYAN, JAMES HORACIO CLAUDIA, LEONARD CLAUDIA Unavailable Unavailable JAYLEN L.P., JAYLEN L.P. Unavailable Unavailable FALLUJI, NEZAR M, Unavailable Unavailable FALLUJI, NEZAR M [facility] Unavailable Unavailable [facility], [facility] ALTA ONEAL, Unavailable Unavailable ALTA ONEAL GAINEY Unavailable Unavailable RUFINO OLINDA JIMENEZ, Unavailable Unavailable OLINDA JIMENEZ JOHN W, Unavailable Unavailable BEBE PALOMINO RONDAL E, Unavailable Unavailable ARNOLD FLORES DAVID P, Unavailable Unavailable NOAH MCCRAY [facility] Unavailable Unavailable INC, [facility] Unavailable Unavailable HOSPITAL P, [facility] AGUAYO REAL, AGUAYO Unavailable Unavailable REAL [facility], Unavailable Unavailable [facility], Unavailable Unavailable [facility] DORITA LEANNA, DORITA LEANNA Unavailable Unavailable SHANNON III MARELY, Unavailable Unavailable SHANNON III MARELY [facility] Un[facility], [facility] Unavailable Unavailable HOLD[facility], [facility] PAULINO WEN, PAULINO Unavailable Unavailable WEN PAULINO WEN, PAULINO Unavailable Unavailable WEN DEON JR, DEON JR Unavailable Unavailable SCARLETT BARBOZA Unavailable Unavailable [facility] Unavailable Unavailable SERVICES, [facility] Unavailable Unavailable [facility], [facility] Unavailable Unavailable MEDICAL, [facility] Un[facility]available [facility], [facility] Unavailable Un[facility], [facility] KATHARINE LUCHO, KATHARINE Unavailable Unavailable LUCHO MULBERRY MARYSE T, Unavailable Unavailable MULALL MARYSE T [facility], Unavailable Unavailable [facility] Alexandr COTTO, Unavailable Unavailable Alexandr COTTO JOHN, Unavailable Unavailable BEBE LAZARO CORAL, CROWE CORAL Unavailable Unavailable AMRITA BARKER [facility] Unavailable Unavailable FLAKITO HEREDIA MD Unavailable Unavailable [facility], FLAKITO HEREDIA MD [facility] Unavailable Unavailable LAB, [facility] Unavailable Unavailable LAB, [facility] DAVID HACKETT, Unavailable Unavailable DAVID HACKETT [facility] Unavailable Unavailable [facility], [facility] MICHAELA, MICHAELA Unavailable Unavailable MICHAELA MAT, Unavailable Unavailable MICHAELA MAT [facility], Unavailable Unavailable [facility], Unavailable Unavailable [facility], XIMENA A, Unavailable Unavailable SEVNE, XIMENA A VILLAFLOR OSI, Unavailable Unavailable VILLAFLOR OSI BRIDGET VILLEGAS Unavailable Unavailable BRIDGET VILLEGAS Unavailable Unavailable ÁNGEL HENDRIX, Unavailable Unavailable ÁNGEL HENDRIX Purpose Continuity of Care Document - 06-01-2007 through 2016 Problems Code Diagnosis DOS Provider Status E785 HYPERLIPIDE 09-07-2016 [facility] MODE PHYSICIANS UNSPECIFIED GROUP I10 ESSENTIAL 09-07-2016 [facility] PRIMARY PHYSICIANS HYPERTENSIO GROUP N I2510 ASHD MCGRATH 09-07-2016 [facility] CORONARY PHYSICIANS ARTERY W/O GROUP ANGINA PECTORIS Z950 PRESENCE OF 09-07-2016 [facility] CARDIAC PHYSICIANS PACEMAKER GROUP M109 GOUT 08-17-2016 [facility] UNSPECIFIED [facility]OCIATES M7989 OTHER 08-17-2016 [facility] SPECIFIED ASSOCIATES SOFT TISSUE DISORDERS I495 SICK SINUS 08-13-2016 [facility] SYNDROME PHYSICIANS GROUP J189 PNEUMONIA 08-10-2016 [place] UNSPECIFIED [facility]ICAL ORGANISM [facility]ING ASS J440 COPD WITH 08-10-2016 [place] ACUTE LOWER MEDICAL IMAGING ASS RESPIRATORY INFECTION J9811 ATELECTASIS 08-10-2016 [place] [facility] Z720 TOBACCO USE 08-10-2016 [place] [facility] M58908 PAIN IN 07-27-2016 [place] RIGHT LEG MEDICAL IM[facility]ING ASS R600 LOCALIZED 07-27-2016 [facility] J90 PLEURAL 07-22-2016 [place] EFFUSION MEDICAL NOT IMAGING ASS ELSEWHERE CLASSIFIED R531 WEAKNESS 07-22-2016 [place] [facility] E039 HYPOTHYROID 07-19-2016 [facility] ISM [facility] UNSPECIFIED E876 HYPOKALEMIA 07-19-2016 [facility] I2119 [address] 07-19-2016 [facility] ELEVATION [facility] [place] INVOLV OTH CORONARY ART INF WALL I959 HYPOTENSION 07-19-2016 [facility] UNSPECIFIED J449 CHRONIC 07-19-2016 [facility] OBSTRUCTIVE ASSOCIATES PULMONARY DISEASE UNS R0602 SHORTNESS 07-19-2016 [place] OF BREATH MEDICAL IMAGING ASS R0902 HYPOXEMIA 07-19-2016 [facility] R918 OTHER 07-19-2016 [place] NONSPECIFIC MEDICAL ABNORMAL IMAGING ASS FINDING OF LUNG FIELD R079 CHEST PAIN 07-18-2016 [place] UNSPECIFIED MEDICAL IMAGING ASS M4806 SPINAL 07-22-2015 [place] STENOSIS MEDICAL LUMBAR IMAGING ASS REGION M5126 OT 07-22-2015 [place] INTERVERTEB MEDICAL RAL DISC IMAGING ASS DISPLACEMEN T LUMBAR RGN M545 LOW BACK 07-22-2015 [place] PAIN MEDICAL IMAGING ASS M1611 UNILATERAL 07-10-2015 [place] PRIMARY MEDICAL OSTEOARTHRI IMAGING ASS TIS RIGHT HIP U43019 PAIN IN 07-10-2015 [place] RIGHT HIP MEDICAL IMAGING ASS M24005 SPONDYLOSIS 07-10-2015 [place] W/O MEDICAL MYELOPATH/R IMAGING ASS ADICULOPATH Y LUMB RGN M5136 OT 07-10-2015 [place] INTERVERTEB MEDICAL RAL DISC IMAGING ASS DEGEN LUMBAR REGION M5137 OT 07-10-2015 [place] INTERVERTEB MEDICAL RAL DISC IMAGING ASS DEGEN LUMBOSACRAL REGION 4019 UNSPECIFIED 01-01-2015 [place] ESSENTIAL MEDICAL HYPERTENSIO IMAGING ASS N 496 CHRONIC 01-01-2015 [place] AIRWAY MEDICAL OBSTRUCTION IMAGING ASS NEC 7862 COUGH 01-01-2015 [place] [facility] 4010 ESSENTIAL 12-18-2014 [facility] HYPERTENSIO LAR N, [place] [address] COR 12-18-2014 [facility] ATHEROSLERO LAR UNSPEC CONSULTANTS TYPE VESSEL O MCGRATH/SAAD T 39389 OTHER 12-18-2014 [facility] SPECIFIED LAR CARDIAC CONSULTANTS DYSRHYTHMIA O S 2440 POSTSURGICA 12-11-2014 [facility] L LAR HYPOTHYROID CONSULTANTS ISM O 4139 OTHER AND 12-04-2014 [facility] UNSPECIFIED REGIONAL ANGINA MEDICAL PECTORIS 68789 CORONARY 12-04-2014 [facility] ATHEROSCLER REGIONAL OSIS [facility] MEDICAL CORONARY ARTERY 42030 HTN CKD UNS 12-03-2014 [facility] STAGE I INC THRU STAGE IV/UNS 4372 HYPERTENSIV 12-03-2014 [facility] E [facility] ENCEPHALOPA INC THY 5859 CHRONIC 12-03-2014 [facility] DISEASE INC UNSPECIFIED 586 UNSPECIFIED 12-03-2014 [facility] RENAL LAR FAILURE CONSULTANTS O V1581 PERS HX 10-22-2014 [facility] NONCOMPLIAN LAR CE W/MED TX CONSULTANTS PRS O HAZARDS HLTH 6039 UNSPECIFIED 12-11-2013 [place] HYDROCELE MEDICAL IMAGING ASS 55404 OTHER 12-11-2013 [place] SPECIFIED MEDICAL DISORDER OF IMAGING ASS MALE [...] N OF RADIOLOGY CERVICAL INTERVERTEB RAL DISC 33031 DEGEN 02-07-2013 [facility] [place] LUMBAR/LUMB RADIOLOGY OSACRAL INTERVERTEB RAL DISC 7245 UNSPECIFIED 02-07-2013 [facility] V5869 LONG-TERM 02-02-2013 [facility] (CURRENT) [facility] USE OF HOSPITAL OTHER MEDICATIONS 5758 OTHER 11-09-2012 [facility] SPECIFIED NEMESIO DISORDER OF GALLBLADDER 7904 NONSPEC 11-09-2012 [facility] INC OF TRANSAMINAS E/LDH V745 SCREENING 10-27-2012 [facility]AM[facility]ATION [facility] VENEREAL DISEASE 7234 BRACHIAL 07-14-2012 [facility] OR [facility] RADICULITIS NOS 4439 UNSPECIFIED 09-10-2011 [place] PERIPHERAL MEDICAL VASCULAR IMAGING ASS DISEASE 226 BENIGN 05-18-2011 [facility] NEOPLASM OF THYROID GLANDS 2410 NONTOXIC 05-18-2011 [facility] UNINODULAR H [facility] ANESTH[facility]IA [facility] 2459 UNSPECIFIED 05-18-2011 PAUL[facility] WEN THYROIDITIS 2449 UNSPECIFIED 05-15-2011 [facility] HYPOTHYROID [facility] P ISM 53882 DIAB W/O 05-15-2011 [facility] II/UNS NOT HOSPITAL P STATED UNCNTRL 2724 OTHER AND 05-15-2011 [facility] UNSPECIFIED [facility] P HYPERLIPIDE MODE 4919 UNSPECIFIED 04-02-2011 [facility] CHRONIC [facility] BRONCHITIS INC 4928 OTHER 04-02-2011 [place] EMPHYSEMA MEDICAL IMAGING ASS 2409 GOITER, 04-01-2011 [place] UNSPECIFIED MEDICAL IMAGING ASS 2450 ACUTE 04-01-2011 PATHOLOGY & THYROIDITIS CYTOLOGY LAB 2388 NEOPLASM 03-02-2011 [facility] BEHAVIOR INC OTHER SPEC SITES 64061 THYROTOXICO 03-02-2011 [facility] S OTH [facility] ORIGIN W/ INC THYROTOX CRISIS/STOR M 2720 PURE 02-27-2011 [facility] HYPERCHOLES [facility] TEROLEMIA INC 05962 PAIN IN 02-03-2011 [place] JOINT, MEDICAL SHOULDER IMAGING ASS REGION 7802 SYNCOPE AND 02-02-2011 FLAKITO HEREDIA [place] 65150 CHEST PAIN 02-02-2011 FLAKITO HEREDIA UNSPECIFIED MD CONSULTING SRV 3312 UNSPECIFIED 01-23-2011 [facility] DEGENERATIO ASSOCIAT N 7820 DISTURBANCE 01-23-2011 [facility] SENSATION 98115 FLUSHING 01-23-2011 [facility] 7840 HEADACHE 01-23-2011 [facility] 58601 SHORTNESS 01-23-2011 [facility] 57216 NAUSEA 01-23-2011 [facility]OSP[facility] 7931 NONSPEC 01-23-2011 [facility] OTH EXAM ASSOCIAT BODY STRUCT LUNG FIELD 8408 SPRAIN&STRA 01-12-2011 [facility] IN OTH SPEC MEM HOSP SITES INC SHOULDER&UP PER ARM 8409 SPRAIN&STRA 01-12-2011 [facility] IN UNSPEC EMERGENCY SITE SERVICES SHOULDER&UP PER ARM 8470 NECK SPRAIN 01-12-2011 [facility] EMERGENCY SERVICES 9222 CONTUSION 01-12-2011 [facility] EMERGENCY ABDOMINAL SERVICES WALL 01668 OTHER 01-12-2011 [place] INJURY OF MEDICAL CHEST WALL IMAGING ASS 9592 INJURY 01-12-2011 [facility] OTHER&UNSPE MEDICAL CIFIED IMAGING ASS SHOULDER&UP PER ARM 9596 INJURY 01-12-2011 [place] OTHER AND MEDICAL UNSPECIFIED IMAGING ASS HIP AND THIGH E9179 OTHER 01-12-2011 [facility] EMERGENCY AGAINST SERVICES W/WO SUBSEQUENT FALL 25963 OSTEOARTHRO 01-10-2011 [facility] UNSPEC HOSPITAL WHETHER GEN/LOC SHLDR REGION 7291 UNSPECIFIED 01-10-2011 [facility] MY[facility] 78090 GROSS 09-17-2010 [facility] P 26936 PAIN IN 11-26-2009 [facility] JOINT, NEMESIO LOWER LEG 95793 PAIN IN 11-22-2009 [place] [facility] EMERGENCY PELVIC SERVICES REGION AND ASSOCIATES THIGH 8439 SPRAIN&STRA 11-22-2009 [facility] IN OF [facility] UNSPECIFIED INC SITE OF HIP&THIGH 8449 SPRAIN&STRA 11-22-2009 [facility] IN OF [facility] UNSPECIFIED INC SITE OF KNEE&LEG 9597 INJURY 11-22-2009 [place] OTHER&UNSPE EMERGENCY CIFIED KNEE SERVICES LEG ASSOCIATES ANKLE&FOOT E8889 UNSPECIFIED 11-22-2009 [place] [facility] SERVICES ASSOCIATES 08936 HEMATURIA 09-16-2009 [place] [facility]PEC[facility]ING ASSOCIATES 82625 MICROSCOPIC 09-16-2009 [facility] HEMATURIA [facility]OC[facility]ATES 27375 ABDOMINAL 09-16-2009 [facility] PAIN RIGHT ASSOCIATES LOWER QUADRANT 2749 GOUT, 09-05-2009 [facility] UNSPECIFIED ASSOCIATES 97166 OSTEOARTHRO 09-05-2009 [facility] S UNSPEC ASSOCIATES WHETHER GEN/LOC UNSPEC SITE 72725 OTHER 08-19-2009 [facility] MALAISE AND [employer]IC [employer] HOLDING 98882 SPASM OF 08-18-2009 [facility] MUSCLE [facility]OCIATES 49585 VOMITING 08-18-2009 [facility] ALONE [facility]ATES 4111 INTERMEDIAT 08-13-2009 [facility] [place] [facility] 26817 ATRIAL 08-13-2009 [facility]IO [place] [facility] PSC 20936 DEHYDRATION 08-12-2009 [facility] 31252 LEUKOCYTOSI 08-12-2009 [facility] UNSPECIFIED 43862 CHRONIC 08-12-2009 [facility] ASTHMA UNSPECIFIED 5849 ACUTE 08-12-2009 [facility] UNSPECIFIED PROF SERV 5939 UNSPECIFIED 08-12-2009 [facility] DISORDER EMERGENCY OF KIDNEY SERVICES AND URETER ASSOCIATES 53466 RHABDOMYOLY 08-12-2009 [facility] 7804 DIZZINESS 08-12-2009 [place] [facility] GID[facility] IMAGING ASSOCIATES 14094 OTHER CHEST 08-12-2009 [facility] SERVICE V1582 PERS HX 08-12-2009 [facility] TOBACCO USE [facility] PRESENTING HAZARDS [facility]ALTH 67339 ABDOMINAL 07-14-[facility] UPPER IMAGING QUADRANT ASSOCIATES 26262 ABDOMINAL 07-10-2009 [facility] PAIN, MEM HOS[facility] EPIGASTRIC INC 16471 UNSPECIFIED 07-05-2009 [facility] ARTHROPATHY SITE UNSPECIFIED 66816 EXOSTOSIS 04-04-2009 [facility], OF DAVID D UNSPECIFIED SITE 11151 EQUINUS 04-04-2009 [facility], DEFORMITY DAVID D OF FOOT, ACQUIRED 7851 PALPITATION 12-20-2008 [facility] S [facility] 17125 ASTHMA, 12-03-2008 [facility] , UNSPECIFIED STATUS 52771 ESOPHAGEAL 05-24-2008 [facility]UX [facility] INC V571 OTHER 05-13-2008 [facility] PHYSICAL [facility]OSPITAL THERAPY 3384 CHRONIC 03-08-2008 [facility], PAIN NOAH P SYNDROME 7238 OTHER 02-02-2008 ABDIAZIZ LAZARO BEBE AFFECTING CERVICAL REGION 71134 STOMATITIS 01-27-2008 [facility] MUCOSITIS Expert UNSPECIFIED 16267 UNSPECIFIED 01-27-2008 [facility] ESOPHAGITIS INC 82220 ACUTE 01-27-2008 [facility] ESOPHAGITIS Yumit 1961 ALLERGIC 01-16-2008 [facility] SAULT RHINITIS ASSOCIATES CAUSE UNSPECIFIED 460 ACUTE 10-16-2007 [facility] NASOPHARYNG ASSOCIATES ITIS 8840 MX&UNSPEC 10-16-2007 [facility] OPEN WOUND HOSPITAL UPPER LIMB W/O MENTION COMP 15440 OBSTRUCTIVE 09-22-2007 [facility] CHRONIC ASSOCIATES BRONCHITIS WITH EXACERBATIO N 63261 POSTLAMINEC 06-29-2007 [facility]ANS SARAH SERVICES SYNDROME PSC LUMBAR REGION 7242 LUMBAGO 06-29-2007 [facility] SERVICES PSC 7246 DISORDERS 06-29-2007 PHYSICIANS OF SACRUM SERVICES PSC 9532 INJURY TO 06-29-2007 [facility]ANS LUMBAR SERVICES NERVE ROOT PSC 7211 CERVICAL 06-28-2007 PHYS[facility]ANS SPONDYLOSIS SERVICES WITH PSC MYELOPATHY 68232 OTHER&UNSPE 06-28-2007 PHYSICIANS CIFIED DISC SERVICES DISORDER PSC CERVICAL REGION 7230 SPINAL 06-28-2007 PHYSICIANS STENOSIS IN SERVICES CERVICAL PSC REGION 71082 OTHER&UNSPE 06-26-2007 PHYSICIANS CIFIED DISC SERVICES DISORDER PSC OF LUMBAR REGION 01625 SCOLIOSIS , 06-26-2007 [facility] IDIOPATHIC SERVICES PSC 9530 INJURY TO 06-01-2007 [facility]ANS CERVICAL SERVICES NERVE ROOT PSC Medications Na ND Rx Da Fi Fi Am Da Di Ph RX Ph St me C No te ll ll ou ys ag ar # ys at rm s nt no ma ic us Or Da si cy ia de te s n re d AL 59 10 10 0 60 30 SO 38 NO Ac SD 76 -2 -2 .0 PE 80 RF ti AZ 23 5- 7- 00 RS 07 LE ve OL 72 20 20 ET AM 00 11 11 FA R 3 MN 0. LY HE [address] Y TA BL ET AL 59 09 09 0 60 30 SO 38 NO Ac SD 76 -2 -2 .0 PE 54 RF ti AZ 23 6- 8- 00 RS 11 LE ve OL 72 20 20 ET AM 00 11 11 FA R 3 MN 0. LY HE [address] Y TA BL ET AL 59 08 08 0 60 30 SO 38 NO Ac SD 76 -2 -2 .0 PE 24 RF ti AZ 23 6- 6- 00 RS 86 LE ve OL 72 20 20 ET AM 00 11 11 FA R 3 MN 0. LY HE [address] Y TA BL ET AL 59 07 07 0 60 30 SO 37 NO Ac SD 76 -2 -2 .0 PE 98 RF ti AZ 23 9- 9- RS 57 LE ve OL 72 20 20 ET AM 00 11 11 FA R 3 MN 0. LY HE 5 NR MG Y TA BL ET AL 00 06 07 0 60 30 SO 37 NO Ac SD 78 -2 -0 .0 PE 72 RF ti AZ 11 8- 1- RS 67 LE ve OL 07 20 20 ET AM 71 11 11 FA R 0 MN 0. LY HE [address] Y UG TA BL ET AL 00 05 05 0 60 30 SO 37 NO Ac SD 78 -3 -3 .0 PE 48 RF ti AZ 11 1- 1- 00 RS 56 LE ve OL 07 20 20 ET AM 71 11 11 FA R 0 MN 0. LY HE [address] Y UG TA ET AL 00 04 04 0 60 30 SO 37 NO Ac SD 78 -2 -2 .0 PE 22 RF ti AZ 11 9- 9- 00 RS 08 LE ve OL 07 20 20 ET AM 71 11 11 FA R 0 MN 0. LY HE [address] Y UG TA BL ET 64 06 06 0 18 5 SO 34 NO Ac 37 -0 -0 0. PE 43 RF ti 60 4- 4- 00 RS 12 LE ve 72 20 20 0 ET 71 10 10 FA R 6 MN LY HE NR DR Y UG AL 00 01 01 00 60 30 HO 10 NO Ac SD 78 -0 -1 .0 PK 03 RF ti AZ 11 8- 4- 00 IN 40 LE ve OL 07 20 20 S 2 ET AM [address] Alexandr 5 UG 0. HE 5 CO NR MG Y IN TA [facility] ET AL 00 12 12 00 60 30 HO 10 NO Ac SD 78 -0 -1 .0 PK 02 RF ti AZ 11 8- 7- 00 IN 37 LE ve OL 07 20 20 S 7 ET AM [address] Alexandr 5 UG 0. HE 5 CO NR MG Y IN TA [facility] ET AL 00 11 11 00 60 30 HO 10 NO Ac SD 78 -1 -1 .0 PK 01 RF ti AZ 11 0- 9- 00 IN 40 LE ve OL 07 20 20 S 8 ET AM [address] Alexandr 5 UG 0. HE 5 CO NR MG Y IN TA [facility] ET AL 00 10 10 00 60 30 HO 10 NO Ac SD 78 -0 -2 .0 PK 00 RF ti AZ 11 9- 2- 00 IN 20 LE ve OL 07 20 20 S 0 ET AM [address] Strange 5 UG 0. HE 5 CO NR MG Y IN TA [facility] ET AL 00 09 09 00 60 30 HO 99 NO Ac SD 78 -1 -2 .0 PK 91 RF ti AZ 11 1- 4- 00 IN 65 LE ve OL 07 20 20 S ET AM [address] Strange 5 UG 0. HE 5 CO NR MG Y IN TA C ET AL 00 08 08 00 60 30 HO 99 NO Ac SD 78 -1 -2 .0 PK 81 RF ti AZ 11 1- 7- 00 IN 05 LE ve OL 07 20 20 S ET AM [address] R 5 UG 0. HE 5 CO NR MG Y IN TA C BL ET AL 59 02 02 00 60 30 CL 18 NO Ac SD 76 -1 -2 .0 IN 75 RF ti AZ 23 3- 6- 00 IC 66 LE ve OL 72 20 20 ET AM 00 09 09 PH R 1 AR 0. MA HE 5 CY NR MG Y TA BL ET 60 02 02 00 18 5 SO 30 NO Ac 25 -1 -2 0. PE 56 RF ti 80 3- 6- 00 RS 47 LE ve 23 20 20 0 ET 91 09 09 FA R 6 MN LY HE NR DR Y UG BU 00 02 02 00 15 4 SO 30 NO Ac TA 14 -1 -2 .0 PE 56 RF ti LB 31 3- 6- 00 RS 45 LE ve -A 78 20 20 ET CE 70 09 09 FA R TA 1 MN MN LY HE N- NR CA DR Y FF UG 50 -3 25 -4 0 00 02 02 00 20 7 CL [...] ET 91 09 09 FA R 6 MN LY HE NR DR Y UG 00 [...] 00 60 30 CL 17 No Ac SD 76 -1 -0 .0 IN 46 t [...] Procedure DOS Code Location Performer Comment ECG 06704 [facility] ROUTINE 7 PHYSICIAN ECG S GROUP W/LEAST 12 LDS I&R ONLY ECG 01052 [facility]QUE[facility] ROUTINE 7 [facility] ECG INC INC W/LEAST 12 LDS TRCG ONLY W/O I&R ECG 77791 [facility] ROUTINE 7 PHYSICIAN ECG S GROUP W/LEAST 12 LDS I&R ONLY THERAPEUT 56233 FAM[facility] FAMILY IC 7 CARE CARE PROPHYLAC ASSOCIATE ASSOCIATE TIC/DX S S INJECTION SUBQ/[place] INS [address] [facility] NEW/RPLCM 7 PHYSICIAN T PRM PM S GROUP W/TRANSV ELTRD ATRIAL&VE NT RADIOLOGI [address]0590 [place] [address] MEDICAL EXAMINATI IMAGING ON CHEST ASS SINGLE VIEW FRONTAL RADIOLOGI 10560 [facility]QUE[facility] C EXAM 7 [facility] CHEST 2 INC INC VIEWS FRONTAL&L ATERAL ECG 42497 [facility] ROUTINE 7 [facility] ECG INC INC W/LEAST 12 LDS TRCG ONLY W/O I&R ECG 30988 [facility] ROUTINE 7 [facility]OS[facility] ECG INC INC W/LEAST 12 LDS TRCG ONLY W/O I&R DUP-SCAN 29297 [facility] XTR VEINS 7 [facility] INC INC UNILATERA L/[facility] 71487 FAMILY FAMILY DISCHARGE 7 CARE CARE DAY ASSOCIATE ASSOCIATE MANAGEMEN S S T 30 MIN/< RADIOLOGI 47782 [place] C EXAM 7 MEDICAL CHEST 2 IMAGING VIEWS ASS FRONTAL&[place] [address] JAN[facility] HEAD/BRAI 7 MEDICAL N W/O IMAGING CONTRAST ASS MATERIAL [facility]1625 [facility] EXAM 7 MEDICAL CHEST 2 IMAGING VIEWS ASS FRONTAL&L ATERAL ECG 32215 [facility] CHAVARRIA JR ROUTINE 7 [facility] W/LEAST P 12 LDS I&R ONLY RADIOLOGI 65180 [facility] DAVIS C 7 MEDICAL EXAMINATI IMAGING ON CHEST ASS SINGLE VIEW FRONTAL ECG 02951 [facility] BARNESON ROUTINE 6 [facility]OS[facility] ECG INC INC W/LEAST 12 LDS TRCG ONLY W/O I&R ECG 06553 [facility] ROUTINE 6 MEM H[facility] MEM HOSP ECG INC INC W/LEAST 12 LDS TRCG ONLY W/O I&R MRI [facility] [facility] SPINAL 6 MEDICAL NEMESIO CANAL IMAGING LUMBAR ASS W/O CONTRAST MATERIAL 3D 11959 [place] RYAN RENDERING 6 MEDICAL NEMESIO W/INTERP IMAGING & ASS POSTPROCE SS SUPERVISI ON ECG 47560 [facility] ROUTINE 6 [facility] HOS[facility]OS[facility] ECG INC INC W/LEAST 12 LDS TRCG ONLY W/O I&R RADEX 28895 [facility] [place] ALL SPINE 6 MEDICAL LUMBOSACR IMAGING AL 2/3 ASS VIEWS RADEX 70307 [facility] SPINE 6 MEM HOSP MEM HOSP LUMBOSACR INC INC AL MINIMUM 4 VIEWS RADEX HIP 31979 [facility]ANICE [facility] [place] [facility] ALL 6 MEDICAL UNILATERA IMAGING L WITH ASS PELVIS 1 VIEW RADEX HIP 51549 [facility] VAZQUEZ 6 MEM HOSP MEM HOSP UNILATERA INC INC L WITH PELVIS 2-3 VIEWS ECG 17384 [facility] VA[facility] ROUTINE 6 MEM HOSP MEM HOSP ECG INC INC W/LEAST 12 LDS TRCG ONLY W/O I&R RADIOLOGI 52479 JANICE DE [place] FUENT[place] ALL C EXAM 5 MEDICAL CHEST 2 IMAGING VIEWS ASS FRONTAL&L ATERAL ECG 34548 CARDIOVAS CARDIOVAS ROUTINE 5 CULAR CULAR ECG CONSULTAN CONSULTAN W/LEAST TS O TS O 12 LDS I&R ONLY ECG 38896 CARDIOVAS CARDIOVAS ROUTINE 5 CULAR CULAR ECG CONSULTAN CONSULTAN W/LEAST TS O TS O 12 LDS I&R ONLY NONCOVERE A9270 [facility] ME[facility] D ITEM OR 5 W W SERVICE [facility] MEDICAL MEDICAL NONCOVERE A9270 MEADOWVIE MEADOWVIE D ITEM OR 5 W W SERVICE [facility] MEDICAL CATH PLMT 88946 GEORGE GEORGE L HRT & 5 [facility] ARTS INC INC W/NJX & ANGIO IMG S&I ECG 36013 CARDIOVAS CARDIOVAS ROUTINE 5 CULAR CULAR ECG CONSULTAN CONSULTAN W/LEAST TS O TS O 12 LDS I&[place] [address] [place] [facility] & [facility] [place] [address] GEORGE VAZQUEZ ABDOMEN & 4 [facility] PELVIS INC INC W/O CONTRST 1/> BODY RE DUP-SCAN 14040 GEORGE VAZQUEZ XTR VEINS 4 [facility] INC INC UNILATERA L/LIMITED STUDY NERVE 60202 AMRITA MONCADA CONDUCTIO 3 N STUDIES 11-12 STUDIES NEEDLE 89509 AMRITA MONCADA EMG EA 3 EXTREMTY W/PARASPI NL AREA COMPLETE MRI 07464 [facility] RADIOLOGY III MARELY CANAL CERVICAL W/O CONTRAST MATRL MRI 48872 [facility] RADIOLOGY III MARELY CANAL LUMBAR W/O CONTRAST MATERIAL RADEX 70363 [facility] 3 [facility] 2 OR 3 VIEWS RADEX 50576 [facility] [address] GEORGE GEORGE ABDOMINAL 3 [facility] REAL INC INC TIME W/IMAGE LIMITED IADNA NOS 50177 MEDICAL MEDICAL 3 DIAGNOSTI DIAGNOSTI AMPLIFIED [facility] PROBE TQ EACH ORGANISM IADNA 63888 MEDICAL MEDICAL PAPILLOMA 3 DIAGNOSTI DIAGNOSTI VIRUS [facility] HUMAN AMPLIFIED PROBE TQ 3D 96358 RYAN RYAN RENDERING 3 NEMESIO NEMESIO W/INTERP & POSTPROCE SS SUPERVISI ON MRI 73158 RYAN RYAN SPINAL 3 NEMESIO NEMESIO CANAL CERVICAL W/O CONTRAST MATRL NON-INVAS 73771 GEORGE VAZQUEZ CHERELLE 2 [facility] PHYSIOLOG [facility] INC IC STUDY EXTREMITY 3 LEVLS THYROIDEC 14466 [facility]FF[facility] PAULINO SARAH 2 WEN EWN SUBSTERNA L CERVICAL APPROACH ECG 02065 DORITA LEANNA DORITA LEANNA ROUTINE 2 ECG W/LEAST 12 LDS I&R ONLY PARATHYRO 29468 JEFFERSON PALUINO ID 2 WEN WEN AUTOTRANS PLANTATIO N ADD-ON ECG 17232 GEORGE VAZQUEZ ROUTINE 1 [facility] W/LEAST P P 12 LDS I&R ONLY BLOOD 92973 GEORGE VAZQUEZ COUNT 1 [facility] HEMOGLOBI INC INC N COLLECTIO 44051 GEORGE VAZQUEZ N VENOUS 1 [facility] [place] [address] GEORGE VAZQUEZ FREE 1 [facility] [facility] [place] [address] GEORGE VAZQUEZ THYROID 1 [facility] STIMULATI INC INC NG HORMONE TSH BLOOD 13666 GEORGE VAZQUEZ COUNT 1 [facility] HEMATOCRI INC INC T BASIC 47429 GEORGE VAZQUEZ METABOLIC 1 [facility] PANEL INC INC CALCIUM TOTAL CALCIUM 39673 GEORGE VAZQUEZ IONIZED 1 [facility] INC INC ECG 11684 GEORGE VAZQUEZ ROUTINE 1 [facility] ECG INC INC W/LEAST 12 LDS TRCG ONLY W/O I&R RADIOLOGI 64479 GEORGE VAZQUEZ C EXAM 1 [facility] CHEST 2 INC INC VIEWS FRONTAL&L ATERAL FINE 30279 GEORGE VAZQUEZ NEEDLE 1 [facility] ASPIRATIO INC INC N W/O IMAGING GUIDANCE CYTP EVAL 83775 PATHOLOGY PATHOLOGY FINE 1 & & NEEDLE CYTOLOGY CYTOLOGY ASPIRATE LAB LAB INTERP & REPORT COLLECTIO 59863 GEORGE VAZQUEZ N VENOUS 1 [facility] [place] [address] GEORGE VAZQUEZ FREE 1 [facility] [place] [address] GEORGE VAZQUEZ THYROID 1 [facility] STIMULATI INC INC [place] TSH FINE 23397 [place] NEEDLE 1 MEDICAL NEMESIO ASPIRATIO IMAGING N WITH ASS IMAGING GUIDANCE MICROSOMA 95111 GEORGE VAZQUEZ L 1 [facility] [place] [address] GEORGE VAZQUEZ GUIDANCE 1 [facility] NEEDLE INC INC PLACEMENT IMG S&I US SOFT 95946 GEORGE VAZQUEZ TISSUE 1 [facility] HEAD & INC INC NECK REAL TIME IMGE DOCM CREATININ 09018 GEORGE BARNESON E BLOOD 1 [facility] INC INC 3D 84344 [place] RENDERING 1 MEDICAL NEMESIO IMAGING W/INTERP& ASS POSTPROC DIFF WORK STATION COLLECTIO 83210 GEORGE VAZQUEZ N VENOUS 1 [facility] [place] [address] GEORGE VAZQUEZ UREA 1 [facility] NITROGEN INC INC QUANTITAT [place] CT SOFT 54816 [place] TISSUE 1 MEDICAL NEMESIO NECK W/O IMAGING CONTRAST ASS MATERIAL COLLECTIO 58760 GEORGE VAZQUEZ N VENOUS 1 [facility] BLOOD INC INC VENIPUNCT URE CALCIUM 21658 GEORGE VAZQUEZ TOTAL 1 [place] [address] GEORGE VAZQUEZ THYROID 1 [facility] [place] [address] GEORGE VAZQUEZ THYROXINE 1 [facility] TOTAL INC INC MICROSOMA 56280 GEORGE VAZQUEZ L 1 [facility] ANTIBODIE INC INC S EACH US SOFT 22267 GEORGE VAZQUEZ TISSUE 1 [facility] HEAD & INC INC NECK REAL TIME IMGE DOCM RADEX 79822 GEORGE VAZQUEZ SPINE 1 [facility] CERVICAL INC INC 6 OR MORE VIEWS RADEX 41571 JANICE DAVIS SPINE 1 MEDICAL NEMESIO CERVICAL IMAGING 4 OR 5 ASS VIEWS RADEX 96511 JANICE DAVIS SHOULDER 1 MEDICAL NEMESIO COMPLETE IMAGING MINIMUM 2 ASS VIEWS ECG 34854 FLAKITO HEREDIA HEREDIA FLAKITO ROUTINE 1 MD ECG CONSULTIN W/LEAST G SRV 12 LDS I&R ONLY LIPID 83718 GEORGE VAZQUEZ PANEL 1 [facility] INC INC HEPATIC 50900 GEORGE GEORGE FUNCTION 1 [facility] PANEL INC INC COLLECTIO 23277 GEORGE VAZQUEZ N VENOUS 1 [facility] [place] [address] GEORGE GEORGE THYROID 1 [facility] STIMULATI INC INC NG HORMONE TSH BASIC 96400 GEORGE VAZQUEZ METABOLIC 1 [facility] [place] [address] [facility] HEAD/BRAI 1 REAL N W/O RADIOLOGY CONTRAST ASSOCIAT MATERIAL COLLECTIO 25601 DAVEY MARISCAL N VENOUS 1 [facility]PITAL VENIPUNCT URE CREATINE 94128 DAVEY MARISCAL KINASE 1 [facility] ECG 11747 DAVEY MARISCAL ROUTINE 1 [facility] ECG H[facility]PITAL HOSPITAL W/LEAST 12 LDS TRCG ONLY W/O [place] [address] DAVEY MARISCAL INFUSION 1 [facility] THERAPY/P HOSPITAL HOSPITAL ROPHYLAXI S /DX 1ST TO 1 HR URNLS DIP 90943 DAVEY MARISCAL 1 [facility] STICK/TAB HOSPITAL HOSPITAL LET REAGENT AUTO MICROSCOP Y MYOGLOBIN 30119 DAVEY MARISCAL 1 [place] [address] DAVEY MARISCAL TROPONIN 1 [facility] QUANTITAT [facility] HOSPITAL CHERELLE BLOOD 75378 DAVEY MARISCAL COUNT 1 [facility]PLETE [facility]OSPITAL AUTO&AUTO DIFRNTL WBC COMPREHEN 42412 DAVEY MARISCAL SIVE 1 [facility] METABOLIC [facility] HOSPITAL PANEL CREATINE 87235 DAVEY MARISCAL KINASE MB 1 [facility] FRACTION [facility] HOSPITAL ONLY ANTIBODY 80537 DAVEY MARISCAL HELICOBAC [address] [facility]OSPITAL PYLORI RADIOLOGI 58971 [facility] C EXAM 1 REAL CHEST 2 RADIOLOGY VIEWS ASSOCIAT FRONTAL&L ATERAL CERVICAL L0120 JAYLEN L.P. JAYLEN L.P. FLEXIBLE 1 NONADJUST ABLE PREFAB OFF SHELF 3D 06269 [facility] R[facility]AN RENDERING 1 MEDICAL NEMESIO IMAGING W/INTERP& ASS POSTPROC DIFF WORK STATION COMPREHEN 18311 GEORGE VAZQUEZ SIVE 1 [facility] [place] [address] GEORGE VAZQUEZ AMYLASE 1 [facility] [place] [address] GEORGE VAZQUEZ INFUSION 1 [facility] THERAPY/P INC INC ROPHYLAXI S /DX 1ST TO 1 HR BLOOD 71043 GEORGE VAZQUEZ COUNT 1 [facility] COMPLETE INC INC AUTO&AUTO DIFRNTL WBC THERAPEUT 43722 GEORGE VAZQUEZ IC 1 [facility] INJECTION INC [place] [address] GEORGE VAZQUEZ LIPASE 1 [facility] [place] [address] [facility] DAVIS ABDOMEN & 1 MEDICAL NEMESIO PELVIS IMAGING W/O ASS CONTRAST MATERIAL RADIOLOGI 6[address]26 [facility] TRAMMELL[facility]AN C 1 MEDICAL NEMESIO EXAMINATI IMAGING ON PELVIS ASS 1/[address] [facility] BUTLERRYAN SHOULDER 1 MEDICAL NEMESIO COMPLETE IMAGING MINIMUM 2 ASS VIEWS RADIOLOGI 49347 [facility] DAVIS C EXAM 1 MEDICAL NEMESIO CHEST 2 IMAGING VIEWS ASS FRONTAL&[place] [address] [facility]AN CERVICAL 1 MEDICAL NEMESIO SPINE W/O IMAGING CONTRAST ASS MATERIAL MRI ANY 24342 RYAN RYAN JT LOWER 0 NEMESIO NEMESIO EXTREM W/O CONTRAST MATRL KNEE L1830 GEORGE VAZQUEZ ORTHOSIS 0 [facility] IMMOBLIZE INC INC R CANVAS LONGTUDNL PREFAB RADEX HIP 49475 [place] KATHARINE 0 MEDICAL LUCHO UNILATERA IMAGING L ASS COMPLETE MINIMUM 2 VIEWS RADIOLOGI 77380 [place] KATHARINE C 0 MEDICAL LUCHO EXAMINATI IMAGING ON KNEE 3 ASS VIEWS DASH 79736 FERNANDORiver JIM SCHULTZ, POST-VOID 0 [facility] UROLOGY R RESIDUAL PSC URINE&/BL ADDER CAP CT PELVIS [address]886 [facility]AN, W/O 0 MEDICAL JAMES CONTRAST IMAGING MATERIAL ASSOCIATE S 3D 77631 [place] RYAN, RENDERING 0 MEDICAL JAMES IMAGING W/INTERP& ASSOCIATE POSTPROC S DIFF WORK STATION BLOOD 52687 FAMILY MCNEILT, COUNT 0 CARE Alexandr BAER COMPLETE ASSOCIATE AUTO&AUTO S DIFRNTL WBC URNLS DIP 34114 FAMILY COTTO, 0 CARE Alexandr BAER STICK/TAB ASSOCIATE LET RGNT S NON-AUTO W/[place] [address] [place] RYAN, ABDOMEN 0 MEDICAL JAMES W/O IMAGING CONTRAST ASSOCIATE MATERIAL S COMPREHEN 42066 COMBINED COMBINED SIVE 0 PHYSICIAN PHYSICIAN [place]AB[place] [address] COMBINED COMBINED FOLIC 0 PHYSICIAN PHYSICIAN [place] [address] COMBINED COMBINED BLOOD/URI 0 PHYSICIAN PHYSICIAN C ACID S LAB S LAB CREATINE 01423 COMBINED COMBINED KINASE 0 PHYSICIAN PHYSICIAN TOTAL S LAB S LAB CYANOCOBA 37632 COMBINED COMBINED ELAINE 0 PHYSICIAN PHYSICIAN VITAMIN S LAB S LAB B-12 25 96359 LAB ANNIE LAB ANNIE HYDROXY 0 AMERIC AMERIC INCLUDES HOLDING HOLDING FRACTIONS IF PERFORMED BLOOD 79678 FAMILY MULBERRY, COUNT 0 CARE MARYSE Flowers COMPLETE ASSOCIATE AUTO&AUTO S DIFRNTL WBC COLLECTIO 81670 FAMILY LEDESMA, N VENOUS 0 CARE MARYSE Flowers BLOOD ASSOCIATE VENIPUNCT S URE BASIC 63174 COMBINED COMBINED METABOLIC 0 PHYSICIAN PHYSICIAN PANEL S LAB S LAB CALCIUM TOTAL ECG 68803 BUBBA HENDRIX ROUTINE 0 ÁNGEL ARCOS ECG CLINIC J W/LEAST PSC 12 LDS I&R ONLY RADIOLOGI 85891 Chan CANO EXAM 0 MEDICAL JAMES CHEST 2 IMAGING VIEWS ASSOCIATE FRONTAL&L S ATERAL BLOOD 50325 GEORGE VAZQUEZ COUNT 0 [facility] COMPLETE INC INC AUTO&[place] [address] GEORGE VAZQUEZ TROPONIN 0 [facility] QUANTITAT INC INC CHERELLE ECG 02214 GEORGE DOWNEY, ROUTINE [address] [facility] W/LEAST PROF SERV 12 LDS I&R ONLY 3D 52571 JANICE DAVIS, RENDERING 0 MEDICAL JAMES W/INTERP IMAGING & ASSOCIATE POSTPROCE S SS SUPERVISI ON INITIAL 46852 CARDIOLOG [facility] 0 Y ASSOC [facility] CARE/DAY OF [place] 70 MINUTES ECG 52398 GEORGE VAZQUEZ ROUTINE 0 [facility] ECG INC INC W/LEAST 12 LDS TRCG ONLY W/O I&R CREATINE 98267 GEORGE VAZQUEZ KINASE 0 [facility] TOTAL INC INC CRITICAL 09189 [facility] SAULT 0 EMERGENCY OLINDA S ILL/INJUR SERVICES ED PATIENT ASSOCIATE INIT S 30-74 MIN BASIC 66720 GEORGE VAZQUEZ METABOLIC 0 [facility] [place] [address] JANICE DAVIS HEAD/BRAI 0 ROMARIO RAMIREZ N W/O IMAGING CONTRAST ASSOCIATE MATERIAL S CREATINE 25527 GEORGE VAZQUEZ KINASE MB 0 [facility] FRACTION INC INC ONLY HEPATBL 20388 JUANJOSE CANOX SYS 0 ROMARIO RAMIREZ IMG IMAGING GLBLDR ASSOCIATE S TECHNETIU A9537 GEORGE Ruiz TC-99M 0 MEM [facility] MEBROFENI INC INC N DX UP [place] 15 [place] [address] GEORGE VAZQUEZ INFUSION 0 [facility] THERAPY/P INC INC ROPHYLAXI S /DX 1ST TO 1 [place] [address] DAVEY MARISCAL BLOOD/URI 0 CO [facility]ID [facility]PITAL HOSPITAL COLLECTIO 06174 DAVEY MARISCAL N VENOUS 0 CO CO BLOOD [facility] VENIPUNCT URE COLLECTIO 47014 GEORGE VAZQUEZ N VENOUS 0 [facility] H[facility] [place] [address] GEORGE VAZQUEZ AMYLASE 0 [facility] [place] [address] GEORGE VAZQUEZ THYROID 0 [facility] STIMULATI [place] [address] GEORGE VAZQUEZ LIPASE 0 [place] [address] GEORGE VAZQUEZ ABDOMINAL 0 [facility] REAL INC INC TIME W/IMAGE LIMITED XTRNL ECG 47526 GEORGE VAZQUEZ & 48 HR 9 [facility] RECORDING INC INC POTASSIUM [address] PLASMA/WH OLE BLOOD CREATININ 77947 [facility] E BLOOD [address] [place] [address] INTRDUCR/ C1894 [facility] SHEATH [address] [place] [address] NOT GUID INTRACARD EP NON-LASR SODIUM [address] PLASMA [place] WHOLE BLOOD GLUCOSE 99448 [facility] QUANTITAT [address] [place] [address] CHERELLE BLOOD XCPT REAGENT STRIP AORTOGRAP [address] ABDOMINAL SERIALOGR APHY RS&I CLOSURE C1760 [facility] DEVICE [address] [place] [address] [place] [address] [facility] UREA [address] [place] [address] NITROGEN QUANTITAT CHERELLE CARBON 58142 [facility] DIOXIDE [address] [place] [address] BICARBONA TE BLOOD 73618 [facility] COUNT [address] [place] [address] HEMATOCRI T L HRT 64053 [facility] CATHETER[address] ZATION RETROGRAD E BRACHIAL PERQ I SI&R [address] DURING C-CATHJ PULM&/OR SELECT I SI&R [address] DURING C-CATHJ VENTR&[place] [address] [facility] C-CATHJ [address] [place] [address] F/SLCTV C ANGRPH ANGIOGRAP 52096 [facility] HY [address] [place] [address] EXTREMITY UNILATERA L RS&I PLCMT G0269 [facility] OCCL DEVC [address] [place] [address] RG/ART POST SURG/INTR VNL PROC INJECTION 55993 [facility] CARDIAC [address] [place] [address] CATHJ L VENTR/L ATR ANGIOGRAP H MYOCRD 44511 GEORGE VAZQUEZ PRFUJ STD 9 [facility] WALL INC INC MOTION QUAL/SANTIAGO STD MYOCRD 66651 GEORGE VAZQUEZ PRFUJ IMG 9 [facility] TOMOG INC INC SPECT DE ICER STD CV STRS 17862 GEORGE VAZQUEZ TST 9 [facility] XERS&/OR INC INC RX CONT ECG TRCG ONLY MYOCRD 96815 GEORGE VAZQUEZ PRFUJ STD 9 [facility] EJEC FXJ INC INC RADIOLOGI 84178 GEORGE VAZQUEZ C EXAM 9 [facility] CHEST 2 INC INC VIEWS FRONTAL&L ATERAL RADEX 24562 GEORGE VAZQUEZ SINUSES 9 [facility] PARANASAL INC INC COMPL MINIMUM 3 VIEWS RADEX 45445 GEORGE VAZQUEZ UPPER GI 9 [facility] W/WO INC INC GLUCAGON/ DELAY IMAGES W/KUB APPL 32874 DAVEY MARISCAL MODALITY 8 CO CO 1/> [facility] TRACTION MECHANICA L APPL 23231 DAVEY MARISCAL MODALITY 8 CO CO 1/> [facility] ULTRASOUN D EA 15 MIN THERAPEUT 57520 DAVEY MARISCAL IC PX 1/> 8 CO CO [facility] EACH 15 MIN EXERCISES PHYSICAL 05313 DAVEY MARISCAL THERAPY 8 [facility] 31837 DAVEY MARISCAL MODALITY 8 CO CO 1/> [facility] ULTRASOUN D EA 15 MIN APPL 43064 DAVEY MARISCAL MODALITY 8 CO CO 1/> [facility] TRACTION MECHANICA L NRV CNDJ 76370 IVETH LAZARO, AMPLT&LAT 8 BEBE SPENCE DIMITRIS EA NRV MOTOR W/F-WAVE STD NRV CNDJ 57307 IVETH LAZARO, AMPLITUDE 8 BEBE SPENCE & LATENCY EACH NERVE SENSORY NDL EMG 1 57863 IVETH LAZARO, XTR W/WO 8 BEBE BEBE RELATED PARASPINA L [facility] COMPREHEN 65127 GEORGE VAZQUEZ SIVE 8 [facility] [address] GEORGE VAZQUEZ STREPTOCO 8 [facility] CCUS INC INC GROUP A BLOOD 01461 GEORGE VAZQUEZ COUNT 8 [facility] COMPLETE INC INC AUTO&AUTO DIFRNTL WBC RADIOLOGI 52858 GEORGE VAZQUEZ C EXAM 8 [facility] CHEST 2 INC INC VIEWS FRONTAL&L ATERAL 3D 87558 RYAN DAVIS, RENDERING 8 JAMES JAMES W/INTERP & POSTPROCE SS SUPERVISI [place] MRI 11631 RYNA DAVIS SPINAL 8 JAMES JAMES CANAL CERVICAL W/O CONTRAST MATRL BLOOD 27608 DAVEY MARISCAL COUNT 8 CO [facility] MCRSCP W/MNL DIFRNTL WBC COUNT COLLECTIO 74554 DAVEY MARISCAL N VENOUS 8 CO CO [facility] VENIPUNCT URE COMPOS A6201 DAVEY MARISCAL DRESS >16 8 CO CO [facility] </=48 SQ W/O ADHES BORDR EA BLOOD 99863 DAVEY MARISCAL COUNT 8 CO CO [facility] AUTO&AUTO DIFRNTL WBC RADIOLOGI 87358 Chan CANO 8 MEDICAL JAMES EXAMINATI IMAGING ON KNEE 3 ASSOCIATE VIEWS S PRESSURIZ 87708 FAMILY LEDESMA, ED/NONPRE 8 CARE MARYSE Flowers SSURIZED ASSOCIATE INHALATIO S N TREATMENT ALBUTEROL J7620 FAMILY MULBERRY, TO 2.5 8 CARE MARYSE Flowers MG & ASSOCIATE IPRATROPI S UM BROM TO 0.5 MG INJECTION J1100 FAMILY MULBERRY, 8 CARE MARYSE T DEXAMETHO ASSOCIATE SONE S SODIUM PHOSPHATE 1 MG MRI 72421 PHYSICIAN PHYSICIAN SPINAL 8 S S CANAL SERVICES SERVICES CERVICAL PSC PSC W/O CONTRAST MATRL 3D 59484 PHYSICIAN GEORGETTE, RENDERING 8 S BEBE W W/INTERP SERVICES & [place] [address] PHYSICIAN GEORGETTE, GUIDANCE 8 S BEBE W NEEDLE SERVICES PLACEMENT PSC 3D 47070 PHYSICIAN PALOMINO, RENDERING 8 S BEBE W W/INTERP SERVICES & [place] [address] PHYSICIAN PALOMINO, GUIDANCE 8 S BEBE W NEEDLE SERVICES PLACEMENT PSC MRI 00878 PHYSICIAN PHYSICIAN SPINAL 8 S S CANAL SERVICES SERVICES LUMBAR PSC PSC W/O CONTRAST MATERIAL Encounters Encounter Start End Date Code Location Performer Type Date OFFICE 32528 [facility] MICHAELA OUTPATIEN 7 7 PHYSICIAN T VISIT S GROUP 25 MINUTES OFFICE 45477 [facility] MICHAELA OUTPATIEN 7 7 PHYSICIAN T VISIT S GROUP 25 MINUTES HOSPITAL [facility] - 7 7 [facility]EN [facility] - 7 7 [facility] - 7 7 [facility] - 6 6 [facility] - 6 6 [facility] - 6 6 [facility] OFF[facility] 38241 [facility] MICHAELA OUTPATIEN 6 6 PHYSICIAN MAT T VISIT S GROUP 25 MINUTES HOSPITAL [facility] - 6 6 [facility] OUTPATIEN [facility] - 6 6 [facility] - 5 5 [facility] - [address] [facility] OUTPATI[facility] - 4 4 [facility] EMERGENCY 22447 BRIDGET CRISTOBAL [facility]OBAL 4 4 [facility] - [address] [facility] [address] [facility] - 3 3 [facility] - 3 3 [facility] - [address] [facility] - [address] [facility] - [address] [facility] - [address] [facility] - [address] [facility] - [address] [facility] - [address] [facility] - [address] [facility] - [address] [facility] [address] [facility] [address] [facility] CRITICAL D[facility] REDD 1 1 [facility] 28142 D[facility] DEPT 1 1 [facility] HIGH SEVERITY& THREAT FUNJ EMERGENCY 27796 DAVEY PANTOJA 1 1 [facility] T VISIT HIGH/URGE NT SEVERITY EMERGENCY 53478 WILLY JIMENEZ DEPT 1 1 EMERGENCY [facility] VISIT SERVICES HIGH SEVERITY& THREAT FUNCJ EMERGENCY 80319 [facility]GE 1 1 [facility] DEPARTMEN INC T VISIT HIGH/URGE NT SEVERITY [facility]PITAL [facility] - 1 1 [facility] OUTPATIEN INC T CRITICAL [facility] REDD 1 1 [facility] EM[facility] 94974 [facility]Y NICHOLS 1 1 [facility] MODERATE SEVERITY OFFICE 42169 GEORGE FERNANDEZ JR OUTPATIEN 1 1 [facility] T VISIT HOSPITAL 15 P MINUTES EMERGENCY 15026 WILLY JIMENEZ, 0 0 EMERGENCY [facility] SERVICES T VISIT HIGH/URGE ASSOCIATE NT S SEVERITY [facility]OSPITAL [facility] - 0 0 [facility] OUTPATIEN INC T EMERGENCY 67193 [facility] 0 0 [facility] DEPARTMEN INC T VISIT MODERATE SEVERITY OFFICE 67414 SHELLEY FERNANDEZ JR, OUTPATIEN 0 0 [facility] MARGARITA T NEW 30 UROLOGY R MINUTES [facility] OUTPATIEN INC T OFFICE 52222 FAMILY KIRTI, OUTPATIEN 0 0 CARE R BUFFY T VISIT ASSOCIATE 15 S MINUTES OFFICE 72398 FAMILY KIRTI, OUTPATIEN 0 0 CARE R BUFFY T VISIT ASSOCIATE 25 S MINUTES OFFICE 31504 FAMILY BALTAZAR, OUTPATIEN 0 0 CARE MARYSE T T VISIT ASSOCIATE 25 S MINUTES [facility] 0 0 HOSPITAL INPATIENT EMERGENCY 88711 GEORGE DEPT 0 0 [facility] VISIT INC HIGH SEVERITY& THREAT [facility] - 0 0 [facility] OUTPATIEN [facility] - [address] [facility] CRITICAL DAVEY ACCESS 0 0 [facility] EMERGENCY 90762 DAVEY 0 0 [facility] T VISIT LOW/MODER SEVERITY EMERGENCY 57977 DAVEY LEONARD CLAUDIA 0 0 [facility] T VISIT MODERATE SEVERITY [facility]OSPITAL [facility] - [address] [facility] OFF[facility] 04965 FAMILY KIRTI, [facility] 0 0 CARE R BUFFY T VISIT ASSOCIATE 15 S MINUTES OFFICE 43285 LEW HACKETT, LINDAAT 9 9 DAVID ORELLANA NEW/ESTAB PATIENT 30 MIN OFFICE 65638 [facility] MAICOL BALTAZAR 9 9 PHYSICIAN ÁNGELA Flowers VISIT S GROUP 25 MINUTES HOSPITAL [facility] - [address] [facility] [place] [address] 9 [facility] [address] [facility] [address] [facility] [address] [facility] CRITICAL DAVEY ACCESS 8 8 [facility] CRITICAL DAVEY ACCESS 8 8 [facility] OFFICE 04703 KAMRON AMEZCUA, CONSULTAT 8 8 ROMARIO ORELLANA SERV NEW/ESTAB FOUNDATIO PATIENT 40 MIN OFFICE 12125 MAHENDRA MCCRAY OUTPATIEN 8 8 NOAH Flowers NEW 45 MINUTES OFFICE 48452 IVETH LAZARO, CONSULTAT 8 8 BEBE ORELLANA NEW/ESTAB PATIENT 80 MIN [facility] T EMERGENCY 37148 PAVAN SANDRA, 8 8 [facility] CORPORATI T VISIT ON HIGH/URGE NT SEVERITY EMERGENCY 51431 [facility] 8 8 [facility] T VISIT MODERATE SEVERITY OFFICE 16530 MAICOL SCHWARTZ 8 8 CARE R BUFFY T VISIT ASSOCIATE 15 S MINUTES EMERGENCY 62347 DAVEY 8 8 [facility] T VISIT MODERATE SEVERITY CRITICAL DAVEY ACCESS 8 8 [facility] EMERGENCY 46788 DAVEY 8 8 [facility] T VISIT LOW/MODER SEVERITY OFFICE 18358 MAICOL SCHWARTZ 8 8 CARE R BUFFY T VISIT ASSOCIATE 15 S MINUTES [facility] 8 8 [facility] OUTPATIEN INC T OFFICE 99561 MAICOL BRANDT 8 8 CARE MARYSE T T VISIT ASSOCIATE 15 S MINUTES OFFICE 40218 PHYSICIAN PHYSICIAN OUTPATIEN 8 8 S S T VISIT SERVICES SERVICES 15 PSC PSC MINUTES OFFICE 69816 PHYSICIAN PHYSICIAN CONSULTAT 8 8 S S ION SERVICES SERVICES NEW/ESTAB PSC PSC PATIENT 40 MIN
--- OUTSIDE RECORDS SUMMARY | 2016-11-01 10:39 | External Medical Summary Rpt ---
Author Author , Organization [employer] Address Unknown Phone Unavailable Care Team Providers Care Pipelines Manager Name Role Phone CARMELLA WEIR Unavailable Unavailable BENAILA COOL, CARMELLA Unavailable Unavailable JUDITH MENEZES, Unavailable Unavailable JUDITH DOWNEY A DE LA FUENTE, DE LA FUENTE Unavailable Unavailable DE LA FUENTE ALL, DE LA FUENTE ALL Unavailable Unavailable [facility] Unavailable Unavailable [facility] Unavailable Unavailable SERVICE, [facility] Unavailable Unavailable CONSULTANTS O, [facility], Unavailable Unavailable [facility], Unavailable Unavailable [facility] Unavailable Unavailable LAB, [facility] HEREDIA FLAKITO, HEREDIA FLAKITO Unavailable Unavailable [facility] Unavailable Unavailable [facility] JIM YAN JR Unavailable Unavailable [...] FLORES DAVID P, Unavailable Unavailable NOAH MCCRAY [facility] Unavailable Unavailable INC, [facility] Unavailable Unavailable HOSPITAL P, P AGUAYO REAL, AGUAYO Unavailable Unavailable REAL [facility], Unavailable Unavailable [facility], [...] Unavailable Unavailable SCARLETT BARBOZA Unavailable Unavailable COR[facility] Unavailable Unavailable SERVICES, [facility] Unavailable Unavailable ASSOCI, [facility] Unavailable Unavailable MEDICAL, [facility] Un[facility], [facility] KATHARINE LUCHO, KATHARINE Unavailable Unavailable ULCHO MULBERRY MARYSE T, Unavailable Unavailable MULALL MARYSE T [facility], Unavailable Unavailable [facility] Alexandr COTTO, Unavailable Unavailable Alexandr COTTO JOHN, [...] Unavailable MICHAELA MAT, Unavailable Unavailable MICHAELA MAT [facility], Unavailable Unavailable [facility], Unavailable Unavailable [facility], XIMENA A, Unavailable Unavailable SEVEN, XIMENA A VILLAFLOR OSI, Unavailable Unavailable VILLAFLOR OSI BRIDGET VILLEGAS Unavailable Unavailable BRIDGET VILLEGAS Unavailable Unavailable ÁNGEL HENDRIX, Unavailable Unavailable ÁNGEL HENDRIX Purpose Continuity of Care Document - 06-01-2007 through 2016 Problems Code Diagnosis DOS Provider Status E785 HYPERLIPIDE 09-07-[address] [facility] MODE PHYSICIANS UNSPECIFIED GROUP I10 ESSENTIAL 09-07-[address] [facility] PRIMARY PHYSICIANS HYPERTENSIO GROUP N I2510 ASHD ONE[place] 09-07-[address] [facility] CORONARY PHYSICIANS ARTERY W/O GROUP ANGINA PECTORIS Z950 PRESENCE OF 09-07-[address] [facility] CARDIAC PHYSICIANS PACEMAKER GROUP M109 GOUT 08-17-2016 [facility] UNSPECIFIED [facility]OCIATES M7989 OTHER 08-17-2016 [facility] SPECIFIED ASSOCIATES SOFT TISSUE DISORDERS I495 SICK SINUS 08-13-[address] [facility] SYNDROME PHYSICIANS GROUP J189 PNEUMONIA 08-10-2016 [place] UNSPECIFIED [facility] ORGANISM IMAGING ASS J440 COPD WITH 08-10-2016 [place] ACUTE LOWER [facility]ICAL IMAG[facility] ASS RESPIRATORY INFECTION J9811 ATELECTASIS 08-10-2016 [place] [facility] Z720 TOBACCO USE 08-10-2016 [place] [facility] [id number] PAIN IN 07-27-2016 [place] RIGHT LEG [facility]ICAL IM[facility] ASS R600 LOCALIZED 07-27-2016 [facility] J90 PLEURAL 07-22-2016 [place] EFFUSION MEDICAL NOT IMAGING ASS ELSEWHERE CLASSIFIED R531 WEAKNESS 07-22-2016 [place] [facility] E039 HYPOTHYROID 07-19-2016 [facility] ISM [facility]OCIATES UNSPECIFIED E876 HYPOKALEMIA 07-19-2016 [facility] [address] I2119 [address] 07-19-2016 [facility] ELEVATION ASSOCIATES ME INVOLV OTH CORONARY ART INF WALL I959 HYPOTENSION 07-19-2016 [facility] UNSPECIFIED J449 CHRONIC 07-19-2016 [facility] OBSTRUCTIVE ASSOCIATES PULMONARY DISEASE UNS R0602 SHORTNESS 07-19-2016 [place] OF BREATH MEDICAL IMAGING ASS R0902 HYPOXEMIA 07-19-2016 [facility] R918 OTHER 07-19-2016 [place] NONSPECIFIC MEDICAL ABNORMAL IMAGING ASS FINDING OF LUNG FIELD R079 CHEST PAIN 07-18-2016 [place] UNSPECIFIED MEDICAL IMAGING ASS M4806 SPINAL 07-22-2015 [place] STENOSIS MEDICAL LUMBAR IMAGING ASS REGION M5126 OT 07-22-2015 [place] INTERVERTEB MEDICAL RAL DISC IMAGING ASS DISPLACEMEN T LUMBAR RGN M545 LOW BACK 07-22-2015 [place] PAIN MEDICAL IMAGING ASS M1611 UNILATERAL 07-10-2015 [place] PRIMARY MEDICAL OSTEOARTHRI IMAGING ASS TIS RIGHT HIP R68551 PAIN IN 07-10-2015 [place] RIGHT HIP MEDICAL IMAGING ASS [id number] SPONDYLOSIS 07-10-2015 [place] W/O MEDICAL MYELOPATH/R IMAGING ASS ADICULOPATH Y LUMB RGN M5136 OT 07-10-2015 [place] INTERVERTEB MEDICAL RAL DISC IMAGING ASS DEGEN LUMBAR REGION M5137 OT 07-10-2015 [place] INTERVERTEB MEDICAL RAL DISC IMAGING ASS DEGEN LUMBOSACRAL REGION 4019 UNSPECIFIED 01-01-2015 [place] ESSENTIAL MEDICAL HYPERTENSIO IMAGING ASS N 496 CHRONIC 01-01-2015 [place] AIRWAY MEDICAL OBSTRUCTION IMAGING ASS NEC 7862 COUGH 01-01-2015 [place] [facility] 4010 ESSENTIAL 12-18-2014 [facility] HYPERTENSIO LAR N, [place] [address] COR 12-18-2014 [facility] ATHEROSLERO LAR UNSPEC CONSULTANTS TYPE VESSEL O ONEIDA/SAAD T 86168 OTHER 12-18-2014 [facility] SPECIFIED LAR CARDIAC CONSULTANTS DYSRHYTHMIA O S 2440 POSTSURGICA 12-11-2014 [facility] L LAR HYPOTHYROID CONSULTANTS ISM O 4139 OTHER AND 12-04-2014 [facility] UNSPECIFIED REGIONAL ANGINA MEDICAL PECTORIS 19867 CORONARY 12-04-2014 [facility] ATHEROSCLER REGIONAL OSIS [place] MEDICAL CORONARY ARTERY 47488 HTN CKD UNS 12-03-2014 [facility] STAGE I INC THRU STAGE IV/UNS 4372 HYPERTENSIV 12-03-2014 [facility] E [facility] ENCEPHALOPA INC THY 5859 CHRONIC 12-03-2014 [facility] DISEASE INC UNSPECIFIED 586 UNSPECIFIED 12-03-2014 [facility] RENAL LAR FAILURE CONSULTANTS O V1581 PERS HX 10-22-2014 [facility] NONCOMPLIAN LAR CE W/MED TX CONSULTANTS PRS O HAZARDS HLTH 6039 UNSPECIFIED 12-11-2013 [place] HYDROCELE MEDICAL IMAGING ASS 14445 OTHER 12-11-2013 [place] SPECIFIED MEDICAL DISORDER OF IMAGING ASS MALE [...] N OF RADIOLOGY CERVICAL INTERVERTEB RAL DISC 99304 DEGEN 02-07-2013 [facility] [place] LUMBAR/LUMB RADIOLOGY OSACRAL INTERVERTEB RAL DISC 7245 UNSPECIFIED 02-07-2013 [facility] V5869 LONG-TERM 02-02-2013 [facility] (CURRENT) [facility] USE OF HOSPITAL OTHER MEDICATIONS 5758 OTHER 11-09-2012 [facility] SPECIFIED NEMESIO DISORDER OF GALLBLADDER 7904 NONSPEC 11-09-2012 [facility] INC OF TRANSAMINAS E/LDH V745 SCREENING 10-27-2012 MEDICAL EXAMINATION DIAGNOSTIC [facility] VENEREAL DISEASE 7234 BRACHIAL 07-14-2012 [facility] NEURITIS OR [facility] RADICULITIS NOS 4439 UNSPECIFIED 09-10-2011 [place] PERIPHERAL MEDICAL VASCULAR IMAGING ASS DISEASE 226 BENIGN 05-18-2011 [facility] NEOPLASM OF THYROID GLANDS 2410 NONTOXIC 05-18-2011 [facility] UNINODULAR H [facility] ANESTHESIA [facility] 2459 UNSPECIFIED 05-18-2011 [facility] THYROIDITIS 2449 UNSPECIFIED 05-15-2011 [facility] HYPOTHYROID [facility] P ISM 50438 DIAB W/O 05-15-2011 [facility] TYPE [facility] II/UNS NOT HOSPITAL P STATED UNCNTRL 2724 OTHER AND 05-15-2011 [facility] UNSPECIFIED [facility] P HYPERLIPIDE MODE 4919 UNSPECIFIED 04-02-2011 [facility] CHRONIC [facility] BRONCHITIS INC 4928 OTHER 04-02-2011 [place] EMPHYSEMA MEDICAL IMAGING ASS 2409 GOITER, 04-01-2011 [place] UNSPECIFIED MEDICAL IMAGING ASS 2450 ACUTE 04-01-2011 PATHOLOGY & THYROIDITIS CYTOLOGY LAB 2388 NEOPLASM 03-02-2011 [facility] BEHAVIOR INC OTHER SPEC SITES 39854 THYROTOXICO 03-02-2011 [facility] S OTH [facility] ORIGIN W/ INC THYROTOX CRISIS/STOR M 2720 PURE 02-27-2011 [facility] HYPERCHOLES [facility] TEROLEMIA INC 19739 PAIN IN 02-03-2011 [place] JOINT, MEDICAL SHOULDER IMAGING ASS REGION 7802 SYNCOPE AND 02-02-2011 FLAKITO HEREDIA COLLAPSE MD CONSULTING SRV 05321 CHEST PAIN 02-02-2011 F[facility] HEREDIA UNSPECIFIED MD CONSULTING SRV 3311 UNSPECIFIED 01-23-2011 [place] [facility] DEGENERATIO ASSOCIAT N 7820 DISTURBANCE 01-23-2011 [facility] SENSATION 50899 FLUSHING 01-23-2011 [facility] 7840 HEADACHE 01-23-2011 [facility] 48257 SHORTNESS 01-23-2011 [facility] 20514 NAUSEA 01-23-2011 [facility] ALONE [facility]OSP[facility] 7931 NONSPEC 01-23-2011 [place] [facility] OTH EXAM ASSOCIAT BODY STRUCT LUNG FIELD 8408 SPRAIN&STRA 01-12-2011 [facility] IN OTH SPEC MEM HOSP SITES INC SHOULDER&UP PER ARM 8409 SPRAIN&STRA 01-12-2011 [facility] IN UNSPEC EMERGENCY SITE SERVICES SHOULDER&UP PER ARM 8470 NECK SPRAIN 01-12-2011 [facility] EMERGENCY SERVICES 9222 CONTUSION 01-12-2011 [facility]ENC[facility] ABDOMINAL SERVICES WALL 63864 OTHER 01-12-2011 [place] INJURY OF MEDICAL CHEST WALL IMAGING ASS 9592 INJURY 01-12-2011 [facility] OTHER&UNSPE MEDICAL CIFIED IMAGING ASS SHOULDER&UP PER ARM 9596 INJURY 01-12-2011 [place] OTHER AND MEDICAL UNSPECIFIED IMAGING ASS HIP AND THIGH E9179 OTHER 01-12-2011 [facility] EMERGENCY AGAINST SERVICES W/WO SUBSEQUENT FALL 43560 OSTEOARTHRO 01-10-2011 [facility] UNSPEC HOSPITAL WHETHER GEN/LOC SHLDR REGION 7291 UNSPECIFIED 01-10-2011 [facility] MYOSITIS 36036 GROSS 09-17-2010 [facility] P 47147 PAIN IN 11-26-2009 [facility] JOINT, NEMESIO LOWER LEG 55319 PAIN IN 11-22-2009 [facility]INT EMERGENCY PELVIC SERVICES REGION AND ASSOCIATES THIGH 8439 SPRAIN&STRA 11-22-2009 [facility] IN OF [facility] UNSPECIFIED INC SITE OF HIP&THIGH 8449 SPRAIN&STRA 11-22-2009 [facility] IN OF [facility] UNSPECIFIED INC SITE OF KNEE&LEG 9597 INJURY 11-22-2009 [facility] OTHER&UNSPE EMERGENCY CIFIED KNEE SERVICES LEG ASSOCIATES ANKLE&FOOT E8889 UNSPECIFIED 11-22-2009 [facility] FALL EMERGENCY SERVICES ASSOCIATES 89310 HEMATURIA 09-16-2009 [place] UNSPECIFIED MEDICAL IMAGING ASSOCIATES 41586 MICROSCOPIC 09-16-2009 [facility] HEMATURIA [facility]OCIATES 16682 ABDOMINAL 09-16-2009 [facility] PAIN RIGHT ASSOCIATES LOWER QUADRANT 2749 GOUT, 09-05-2009 [facility] UNSPECIFIED ASSOCIATES 79835 OSTEOARTHRO 09-05-2009 [facility] S UNSPEC ASSOCIATES WHETHER GEN/LOC UNSPEC SITE 06910 OTHER 08-19-2009 LAB ANNIE MALAISE AND [employer] 64854 SPASM OF 08-18-2009 [facility] MUSCLE [facility]OCIATES 35463 VOMITING 08-18-2009 [facility] ALONE ASSOCIATES 4111 INTERMEDIAT 08-13-2009 [facility] E CORONARY [place] [facility] 19647 ATRIAL 08-13-2009 NEW FIBRILLATIO [place] [facility] 52071 DEHYDRATION 08-12-2009 [facility] 15483 LEUKOCYTOSI 08-12-2009 [facility] UNSPECIFIED 76381 CHRONIC 08-12-2009 [facility] ASTHMA UNSPECIFIED 5849 ACUTE 08-12-2009 [facility] UNSPECIFIED PROF SERV 5939 UNSPECIFIED 08-12-2009 [facility] DISORDER EMERGENCY OF KIDNEY SERVICES AND URETER ASSOCIATES 16092 RHABDOMYOLY 08-12-2009 [facility] 7804 DIZZINESS 08-12-2009 [place] AND MEDICAL GIDDINESS IMAGING ASSOCIATES 23700 OTHER CHEST 08-12-2009 [facility] SERV[facility] V1582 PERS HX 08-12-2009 [facility] TOBACCO USE [facility] PRESENTING [facility] 20272 ABDOMINAL 07-14-2009 [facility] LUMPKINY PAIN RIGHT MEDICAL UPPER IMAGING QUADRANT ASSOCIATES 66709 ABDOMINAL 07-10-2009 [facility] PAIN, MEM HOS[facility] EPIGASTRIC INC 47436 UNSPECIFIED 07-05-2009 [facility] ARTHROPATHY SITE UNSPECIFIED 57919 EXOSTOSIS 04-04-2009 [facility], OF DAVID D UNSPECIFIED SITE 72566 EQUINUS 04-04-2009 [facility], DEFORMITY DAVID D OF FOOT, ACQUIRED 7851 PALPITATION 12-20-2008 [facility] S [facility] 97882 ASTHMA, 12-03-2008 [facility] , UNSPECIFIED STATUS 65166 ESOPHAGEAL 05-24-2008 [facility] REFLUX [facility] INC V571 OTHER 05-13-2008 [facility] THERAPY 3384 CHRONIC 03-08-2008 HARRI[facility], PAIN NOAH P SYNDROME 7238 OTHER 02-02-2008 ABDIAZIZ LAZARO BEBE AFFECTING CERVICAL REGION 16734 STOMATITIS 01-27-2008 [facility] MUCOSIT[facility] [employer] UNSPECIFIED 64890 UNSPECIFIED 01-27-2008 [facility] ESOPHAGITIS INC 57307 ACUTE 01-27-2008 [employer] [employer] ESOPHAGITIS [employer] 7181 ALLERGIC 01-16-2008 [facility] RHINITIS ASSOCIATES CAUSE UNSPECIFIED 460 ACUTE 10-16-2007 [facility] NASOPHARYNG ASSOCIATES ITIS 8840 MX&UNSPEC 10-16-2007 [facility] OPEN WOUND HOSPITAL UPPER LIMB W/O MENTION COMP 67517 OBSTRUCTIVE 09-22-2007 [facility] CHRONIC ASSOCIATES BRONCHITIS WITH EXACERBATIO N 57758 POSTLAMINEC 06-29-2007 PHYSICIANS SARAH SERVICES SYNDROME PSC LUMBAR REGION 7242 LUMBAGO 06-29-2007 PHYSICIANS SERVICES PSC 7246 DISORDERS 06-29-2007 PHYSICIANS OF SACRUM SERVICES PSC 9532 INJURY TO 06-29-2007 PHYSICIANS LUMBAR SERVICES NERVE ROOT PSC 7211 CERVICAL 06-28-2007 PHYSICIANS SPONDYLOSIS SERVICES WITH PSC MYELOPATHY 19695 OTHER&UNSPE 06-28-2007 PHYSICIANS CIFIED DISC SERVICES DISORDER PSC CERVICAL REGION 7230 SPINAL 06-28-2007 PHYSICIANS STENOSIS IN SERVICES CERVICAL PSC REGION 67405 OTHER&UNSPE 06-26-2007 PHYSICIANS CIFIED DISC SERVICES DISORDER PSC OF LUMBAR REGION 32251 SCOLIOSIS , 06-26-2007 PHYSICIANS IDIOPATHIC SERVICES PSC [...] 0 60 30 SO 38 NO Ac NH 76 -2 -2 .0 PE 80 RF ti AZ 23 5- 7- 00 RS 07 LE ve OL 72 20 20 ET AM 00 11 11 FA R 3 ME 0. LY HE [address] Y TA BL ET AL 59 09 09 0 60 30 SO 38 NO Ac NH 76 -2 -2 .0 PE 54 RF ti AZ 23 6- 8- 00 RS 11 LE ve OL 72 20 20 ET AM 00 11 11 FA R 3 ME 0. LY HE [address] Y TA BL ET AL 59 08 08 0 60 30 SO 38 NO Ac NH 76 -2 -2 .0 PE 24 RF ti AZ 23 6- 6- 00 RS 86 LE ve OL 72 20 20 ET AM 00 11 11 FA R 3 ME 0. LY HE [address] Y TA BL ET AL 59 07 07 0 60 30 SO 37 NO Ac NH 76 -2 -2 .0 PE 98 RF ti AZ 23 9- 9- RS 57 LE ve OL 72 20 20 ET AM 00 11 11 FA R 3 ME 0. LY HE 5 NR MG Y TA BL ET AL 00 06 07 0 60 30 SO 37 NO Ac NH 78 -2 -0 .0 PE 72 RF ti AZ 11 8- 1- RS 67 LE ve OL 07 20 20 ET AM 71 11 11 FA R 0 ME 0. LY HE [address] Y UG TA BL ET AL 00 05 05 0 60 30 SO 37 NO Ac NH 78 -3 -3 .0 PE 48 RF ti AZ 11 1- 1- 00 RS 56 LE ve OL 07 20 20 ET AM 71 11 11 FA R 0 ME 0. LY HE [address] Y UG TA ET AL 00 04 04 0 60 30 SO 37 NO Ac NH 78 -2 -2 .0 PE 22 RF ti AZ 11 9- 9- 00 RS 08 LE ve OL 07 20 20 ET AM 71 11 11 FA R 0 ME 0. LY HE [address] Y UG TA BL ET 64 06 06 0 18 5 SO 34 NO Ac 37 -0 -0 0. PE 43 RF ti 60 4- 4- 00 RS 12 LE ve 72 20 20 0 ET 71 10 10 FA R 6 ME LY HE NR DR Y UG AL 00 01 01 00 60 30 HO 10 NO Ac NH 78 -0 -1 .0 PK 03 RF ti AZ 11 8- 4- 00 IN 40 LE ve OL 07 20 20 S 2 ET AM [address] Alexandr 5 UG 0. HE 5 CO NR MG Y IN TA [facility] ET AL 00 12 12 00 60 30 HO 10 NO Ac NH 78 -0 -1 .0 PK 02 RF ti AZ 11 8- 7- 00 IN 37 LE ve OL 07 20 20 S 7 ET AM [address] Alexandr 5 UG 0. HE 5 CO NR MG Y IN TA [facility] ET AL 00 11 11 00 60 30 HO 10 NO Ac NH 78 -1 -1 .0 PK 01 RF ti AZ 11 0- 9- 00 IN 40 LE ve OL 07 20 20 S 8 ET AM [address] Alexandr 5 UG 0. HE 5 CO NR MG Y IN TA [facility] ET AL 00 10 10 00 60 30 HO 10 NO Ac NH 78 -0 -2 .0 PK 00 RF ti AZ 11 9- 2- 00 IN 20 LE ve OL 07 20 20 S 0 ET AM [address] Srtange 5 UG 0. HE 5 CO NR MG Y IN TA [facility] ET AL 00 09 09 00 60 30 HO 99 NO Ac NH 78 -1 -2 .0 PK 91 RF ti AZ 11 1- 4- 00 IN 65 LE ve OL 07 20 20 S ET AM [address] Strange 5 UG 0. HE 5 CO NR MG Y IN TA C ET AL 00 08 08 00 60 30 HO 99 NO Ac NH 78 -1 -2 .0 PK 81 RF ti AZ 11 1- 7- 00 IN 05 LE ve OL 07 20 20 S ET AM [address] R 5 UG 0. HE 5 CO NR MG Y IN TA C BL ET AL 59 02 02 00 60 30 CL 18 NO Ac NH 76 -1 -2 .0 IN 75 RF [...] ET 91 09 09 FA R 6 ME LY HE NR DR Y UG BU 00 02 02 00 15 4 SO 30 NO Ac TA 14 -1 -2 .0 PE 56 RF ti LB 31 3- 6- 00 RS 45 LE ve -A 78 20 20 ET CE 70 09 09 FA R TA 1 ME ME LY HE N- NR CA DR Y [...] ET 91 09 09 FA R 6 ME LY HE NR DR Y UG 00 [...] 00 60 30 CL 17 No Ac NH 76 -1 -0 .0 IN 46 t [...] Procedure DOS Code Location Performer Comment ECG 65590 [facility] ROUTINE 7 PHYSICIAN ECG S GROUP W/LEAST 12 LDS I&R ONLY ECG 60169 [facility] VA[facility]QUE[facility] ROUTINE 7 [facility] ECG INC INC W/LEAST 12 LDS TRCG ONLY W/O I&R ECG 53921 [facility] ROUTINE 7 PHYSICIAN ECG S GROUP W/LEAST 12 LDS I&R ONLY THERAPEUT 18038 FAMILY FAMILY IC 7 CARE CARE PROPHYLAC ASSOCIATE ASSOCIATE TIC/DX S S INJECTION SUBQ/[place] [address] [facility] NEW/RPLCM 7 PHYSICIAN T PRM PM S GROUP W/TRANSV ELTRD ATRIAL&VE NT RADIOLOGI 87231 [place] 14047 MEDICAL EXAMINATI IMAGING ON CHEST ASS SINGLE [place] FRONTAL RADIOLOGI 37974 [facility] VAZQUEZ C EXAM 7 [facility] CHEST 2 INC INC VIEWS FRONTAL&L ATERAL ECG 13841 [facility] VAZQUEZ ROUTINE 7 [facility] ECG INC INC W/LEAST 12 LDS TRCG ONLY W/O I&R ECG 02983 [facility] ROUTINE 7 [facility]OS[facility] ECG INC INC W/LEAST 12 LDS TRCG ONLY W/O I&R DUP-SCAN 21788 [facility] XTR VEINS 7 [facility] INC INC UNILATERA L/LIMITED STUDY HOSPITAL 95323 FAMILY FAMILY DISCHARGE 7 CARE CARE DAY ASSOCIATE ASSOCIATE MANAGEMEN S S T 30 MIN/< RADIOLOGI 52225 [place] C EXAM 7 MEDICAL CHEST 2 IMAGING VIEWS ASS FRONTAL&[place] [address] JANICE DE [facility] HEAD/BRAI 7 MEDICAL N W/O IMAGING CONTRAST ASS MATERIAL RADIOLOGI 36196 [facility] C EXAM 7 MEDICAL CHEST 2 IMAGING VIEWS ASS FRONTAL&L ATERAL ECG 96259 [facility] CHAVARRIA JR ROUTINE 7 [facility] W/LEAST P 12 LDS I&R ONLY RADIOLOGI 31514 [facility] DAVIS C 7 MEDICAL EXAMINATI IMAGING ON CHEST ASS SINGLE VIEW FRONTAL ECG 59968 [facility] BARNESON ROUTINE 6 [facility]OS[facility] ECG INC INC W/LEAST 12 LDS TRCG ONLY W/O I&R ECG 36091 [facility]QUE[facility] ROUTINE 6 [facility] MEM HOS[facility] ECG INC INC W/LEAST 12 LDS TRCG ONLY W/O I&R MRI 52695 [facility] LUMPKINNancy DAVIS SPINAL 6 MEDICAL NEMESIO CANAL IMAGING LUMBAR ASS W/O CONTRAST MATERIAL 3D 96559 [place] RYAN RENDERING 6 MEDICAL NEMESIO W/INTERP IMAGING & ASS POSTPROCE SS SUPERVISI ON ECG 22691 [facility] ROUTINE 6 MEM HOS[facility] MEM HOSP ECG INC INC W/LEAST 12 LDS TRCG ONLY W/O I&R RADEX 95635 JANICE [place] ALL SPINE 6 MEDICAL LUMBOSACR IMAGING AL 2/3 ASS VIEWS RADEX 72473 [facility] VA[facility]QUEZ SPINE 6 MEM HOSP MEM HOSP LUMBOSACR INC INC AL MINIMUM 4 VIEWS RADEX HIP 51029 JANICE DE [place] ALL 6 MEDICAL UNILATERA IMAGING L WITH ASS PELVIS 1 VIEW RADEX HIP 46312 [facility] VAZQUEZ 6 MEM HOSP MEM HOSP UNILATERA INC INC L WITH PELVIS 2-3 VIEWS ECG 42288 [facility] VAZQUEZ ROUTINE 6 MEM HOSP MEM HOSP ECG INC INC W/LEAST 12 LDS TRCG ONLY W/O I&R RADIOLOGI 03470 JANICE DE LA FUENT[place] ALL C EXAM 5 MEDICAL CHEST 2 IMAGING VIEWS ASS FRONTAL&L ATERAL ECG 78960 CARDIOVAS CARDIOVAS ROUTINE 5 CULAR CULAR ECG CONSULTAN CONSULTAN W/LEAST TS O TS O 12 LDS I&R ONLY ECG 29758 CARDIOVAS CARDIOVAS ROUTINE 5 CULAR CULAR ECG CONSULTAN CONSULTAN W/LEAST TS O TS O 12 LDS I&R ONLY NONCOVERE A9270 [facility] MEADOWVIE D ITEM OR 5 W W SERVICE [facility] MEDICAL MEDICAL NONCOVERE A9270 [facility] MEADOWVIE D ITEM OR 5 W W SERVICE [facility] MEDICAL CATH PLMT 67898 [facility] L HRT & 5 MEM [facility] HOSP ARTS INC INC W/NJX & ANGIO IMG S&I ECG 80477 CARDIOVAS CARDIOVAS ROUTINE 5 CULAR CULAR ECG CONSULTAN CONSULTAN W/LEAST TS O TS O 12 LDS I&[place] [address] [place] [facility] S[facility] & 4 [place] [address] [facility] VAZQUEZ ABDOMEN & 4 [facility]OS[facility] PELVIS INC INC W/O CONTRST 1/> BODY RE DUP-SCAN 47613 [facility] VA[facility]QUE[facility] XTR VEINS 4 [facility]OSP INC INC UNILATERA L/LIMITED STUDY NERVE 73209 AMR[facility] MONCADA CONDUCTIO 3 N STUDIES 11-12 STUDIES NEEDLE 23676 AMRITA MONCADA EMG EA 3 EXTREMTY W/PARASPI NL AREA COMPLETE MRI 41008 [facility] SPINAL 3 RADIOLOGY III MARELY CANAL CERVICAL W/O CONTRAST MATRL MRI 67108 [facility] SPINAL 3 RADIOLOGY III MARELY CANAL LUMBAR W/O CONTRAST MATERIAL RADEX 14208 [facility] SPINE [address] [facility] 2 OR 3 VIEWS RADEX 70478 [facility] SPINE 3 [facility]/[place] [address] GE[facility] GEOR[facility] ABDOMINAL 3 [facility] HOSP REAL INC INC TIME W/IMAGE LIMITED IADNA NOS 71980 MEDICAL MEDICAL 3 DIAGNOSTI DIAGNOSTI [facility]IED [facility] PROBE TQ EACH ORGANISM IADNA 73352 [facility] PAPILLOMA 3 DIAGNOSTI DIAGNOSTI VIRUS [facility] HUMAN AMPLIFIED PROBE TQ 3D 86290 RYAN RYAN RENDERING 3 NEMESIO NEMESIO W/INTERP & POSTPROCE SS SUPERVISI ON MRI 48363 RYAN RYAN SPINAL 3 NEMESIO NEMESIO CANAL CERVICAL W/O CONTRAST MATRL NON-INVAS 89371 GEORGE VAZQUEZ CHERELLE 2 [facility] INC IC STUDY EXTREMITY 3 LEVLS THYROIDEC 80921 [place] PAULINO SARAH 2 WEN WEN SUBSTERNA L CERVICAL APPROACH ECG 47028 DORITA LEANNA DORITA LEANNA ROUTINE 2 ECG W/LEAST 12 LDS I&R ONLY PARATHYRO 78424 JEFF[place] PAULINO ID 2 WEN WEN AUTOTRANS PLANTATIO N ADD-ON ECG 52771 GEORGE VAZQUEZ ROUTINE 1 [facility] W/LEAST P P 12 LDS I&R ONLY BLOOD 35896 GEORGE VAZQUEZ COUNT 1 [facility] HEMOGLOBI INC INC N COLLECTIO 02324 GEORGE VAZQUEZ N VENOUS 1 [facility] [place] [address] GEORGE VAZQUEZ FREE 1 [facility] [place] [address] GEORGE VAZQUEZ THYROID 1 [facility] STIMULATI INC INC NG HORMONE TSH BLOOD 76290 GEORGE VAZQUEZ COUNT 1 [facility] HEMATOCRI INC INC T BASIC 26538 GEORGE VAZQUEZ METABOLIC 1 [facility] PANEL INC INC CALCIUM TOTAL CALCIUM 56395 GEORGE VAZQUEZ IONIZED 1 [facility] INC INC ECG 68640 GEORGE VAZQUEZ ROUTINE 1 [facility] ECG INC INC W/LEAST 12 LDS TRCG ONLY W/O I&R RADIOLOGI 85568 GEORGE VAZQUEZ C EXAM 1 [facility] CHEST 2 INC INC VIEWS FRONTAL&L ATERAL FINE 37689 GEORGE VAZQUEZ NEEDLE 1 [facility] ASPIRATIO INC INC N W/O IMAGING GUIDANCE CYTP EVAL 66778 PATHOLOGY PATHOLOGY FINE 1 & & NEEDLE CYTOLOGY CYTOLOGY [facility] INTERP & REPORT COLLECTIO 06985 GEORGE VAZQUEZ N VENOUS 1 [facility] [place] [address] GEORGE VAZQUEZ FREE 1 [facility] [place] [address] GEORGE VAZQUEZ THYROID 1 [facility] STIMULATI INC INC NG HORMONE TSH FINE 56154 [place]AN NEEDLE 1 MEDICAL NEMESIO ASPIRATIO IMAGING N WITH ASS IMAGING GUIDANCE MICROSOMA 24668 GEORGE VAZQUEZ L 1 [facility] [place] [address] GEORGE VAZQUEZ GUIDANCE 1 [facility] NEEDLE INC INC PLACEMENT IMG S&I US SOFT 48241 GEORGE VAZQUEZ TISSUE 1 [facility] HEAD & INC INC NECK REAL TIME IMGE DOCM CREATININ 82208 GEORGE BARNESON E BLOOD 1 [facility] INC INC 3D 92901 [place] RYAN RENDERING 1 MEDICAL NEMESIO IMAGING W/INTERP& ASS POSTPROC DIFF WORK STATION COLLECTIO 53332 GEORGE VAZQUEZ N VENOUS 1 [facility] [place] [address] GEORGE VAZQUEZ [facility] 1 [facility] NITROGEN INC INC QUANTITAT [place] CT SOFT 39633 [place] RYAN TISSUE 1 MEDICAL NEMESIO NECK W/O IMAGING CONTRAST ASS MATERIAL COLLECTIO 32288 GEORGE VAZQUEZ N VENOUS 1 [facility] BLOOD INC INC VENIPUNCT URE CALCIUM 61643 GEORGE VAZQUEZ TOTAL 1 [place] [address] GEORGE VAZQUEZ THYROID 1 [facility] STIMUL[place] [address] GEORGE VAZQUEZ THYROXINE 1 [facility] TOTAL INC INC MICROSOMA 51451 GEORGE VAZQUEZ L 1 [facility] ANTIBODIE INC INC S EACH US SOFT 25324 GEORGE VAZQUEZ TISSUE 1 [facility] HEAD & INC INC NECK REAL TIME IMGE DOCM RADEX 10629 GEORGE VAZQUEZ SPINE 1 [facility] CERVICAL INC INC 6 OR MORE VIEWS RADEX 75115 JANICE DAVIS SPINE 1 MEDICAL NEMESIO CERVICAL IMAGING 4 OR 5 ASS VIEWS RADEX 37432 JANICE DAVIS SHOULDER 1 MEDICAL NEMESIO COMPLETE IMAGING MINIMUM 2 ASS VIEWS ECG 75803 FLAKITO HEREDIA HEREDIA FLAKITO ROUTINE 1 MD ECG CONSULTIN W/LEAST G SRV 12 LDS I&R ONLY LIPID 35752 GEORGE VAZQUEZ PANEL 1 [facility] INC INC HEPATIC 07885 GEORGE GEORGE FUNCTION 1 [facility] PANEL INC INC COLLECTIO 53710 GEORGE VAZQUEZ N VENOUS 1 [facility] [place]LOOD [place] [address] GEORGE GEORGE THYROID 1 [facility] STIMULATI INC INC NG HORMONE TSH BASIC 71049 GEORGE VAZQUEZ METABOLIC 1 [facility] [address] [facility] HEAD/BRAI 1 REAL N W/O RADIOLOGY CONTRAST ASSOCIAT MATERIAL COLLECTIO 83542 DAVEY MARISCAL N VENOUS 1 CO [facility] BLOOD [facility]OSPITAL HOSPITAL VENIPUNCT URE CREATINE 71021 DAVEY MARISCAL KINASE 1 CO CO TOTAL HOSPITAL HOSPITAL ECG 78864 DAVEY MARISCAL ROUTINE 1 CO CO ECG HOSPITAL HOSPITAL W/LEAST 12 LDS TRCG ONLY W/[place] [address] DAVEY MARISCAL INFUSION 1 CO CO THERAPY/P HOSPITAL HOSPITAL ROPHYLAXI S /DX 1ST TO 1 HR URNLS DIP 02316 DAVEY MARISCAL 1 CO CO STICK/TAB HOSPITAL HOSPITAL LET REAGENT AUTO MICROSCOP Y MYOGLOBIN 79595 DAVEY MARISCAL 1 [place] [address] DAVEY MARISCAL TROPONIN 1 CO CO QUANTITAT HOSPITAL HOSPITAL CHERELLE BLOOD 46490 DAVEY MARISCAL COUNT 1 CO CO COMPLETE [facility]OSPITAL HOSPITAL AUTO&AUTO DIFRNTL WBC COMPREHEN 41801 DAVEY MARISCAL SIVE 1 CO CO METABOLIC HOSPITAL HOSPITAL PANEL CREATINE 57482 DAVEY MARISCAL KINASE MB 1 CO CO FRACTION [facility]OSPITAL HOSPITAL ONLY ANTIBODY 95921 DAVEY MARISCAL HELICOBAC [address] [facility] P[facility]ORI RADIOLOGI 70184 [facility] C EXAM 1 REAL CHEST 2 RADIOLOGY VIEWS ASSOCIAT FRONTAL&L ATERAL CERVICAL L0120 JAYLEN L.P. JAYLEN L.P. FLEXIBLE 1 NONADJUST ABLE PREFAB OFF SHELF 3D 40299 [facility] RYAN RENDERING 1 MEDICAL NEMESIO IMAGING W/INTERP& ASS POSTPROC DIFF WORK STATION COMPREHEN 14102 GEORGE VAZQUEZ SIVE 1 [facility] [place] [address] GEORGE VAZQUEZ AMYLASE 1 [facility] [place] [address] GEORGE VAZQUEZ INFUSION 1 [facility] THERAPY/P INC INC ROPHYLAXI S /DX 1ST TO 1 HR BLOOD 78233 GEORGE VAZQUEZ COUNT 1 [facility] COMPLETE INC INC AUTO&AUTO DIFRNTL WBC THERAPEUT 39401 GEORGE VAZQUEZ IC 1 [facility] INJECTION INC [place] [address] GEORGE VAZQUEZ LIPASE 1 [facility] [place] [address] [facility] DAVIS ABDOMEN & 1 MEDICAL NEMESIO PELVIS IMAGING W/O ASS CONTRAST MATERIAL RADIOLOGI 74404 [facility] LUMPKINNancy TRAMMELLRYAN C 1 MEDICAL NEMESIO EXAMINATI IMAGING ON PELVIS ASS 1/2 VIEWS RADEX 84234 [facility] LUMPKINNancy BUTLERRYAN SHOULDER 1 MEDICAL NEMESIO COMPLETE IMAGING MINIMUM 2 ASS VIEWS RADIOLOGI 22393 [facility] DAVIS C EXAM 1 MEDICAL NEMESIO CHEST 2 IMAGING VIEWS ASS FRONTAL&[place] [address] [facility] LUMPKINNancy TRAMMELLRYAN CERVICAL 1 MEDICAL NEMESIO SPINE W/O IMAGING CONTRAST ASS MATERIAL MRI ANY 90905 RYAN RYAN JT LOWER 0 NEMESIO NEMESIO EXTREM W/O CONTRAST MATRL KNEE L1830 GEORGE VAZQUEZ ORTHOSIS 0 [facility] IMMOBLIZE INC INC R CANVAS LONGTUDNL PREFAB RADEX HIP 35029 [place] KATHARINE 0 MEDICAL LUCHO UNILATERA IMAGING L ASS COMPLETE MINIMUM 2 VIEWS RADIOLOGI 68039 [place] KATHARINE C 0 MEDICAL LUCHO EXAMINATI IMAGING ON KNEE 3 ASS VIEWS DASH 01588 FERNANDORiver JIM SCHULTZ, POST-VOID 0 [facility] UROLOGY R RESIDUAL PSC URINE&/BL ADDER CAP CT PELVIS 53644 [facility] LUMPKINNancy RYAN, W/O 0 MEDICAL JAMES CONTRAST IMAGING MATERIAL ASSOCIATE S 3D 71324 [place] RYAN, RENDERING 0 MEDICAL JAMES IMAGING W/INTERP& ASSOCIATE POSTPROC S DIFF WORK STATION BLOOD 26884 FAMILY MCNEILT, COUNT 0 CARE Alexandr BAER COMPLETE ASSOCIATE AUTO&AUTO S DIFRNTL WBC URNLS DIP 93666 FAMILY COTTO, 0 CARE Alexandr BAER STICK/TAB ASSOCIATE LET RGNT S NON-AUTO W/[place] [address] [place] RYAN, ABDOMEN 0 MEDICAL JAMES W/O IMAGING CONTRAST ASSOCIATE MATERIAL S COMPREHEN 92335 COMBINED COMBINED SIVE 0 PHYSICIAN PHYSICIAN METABOL[place] [address] COMBINED COMBINED FOLIC 0 PHYSICIAN PHYSICIAN [place] [address] COMBINED COMBINED BLOOD/URI 0 PHYSICIAN PHYSICIAN C ACID S LAB S LAB CREATINE 55369 COMBINED COMBINED KINASE 0 PHYSICIAN PHYSICIAN TOTAL S LAB S LAB CYANOCOBA 32805 COMBINED COMBINED ELAINE 0 PHYSICIAN PHYSICIAN VITAMIN S LAB S LAB B-12 25 63704 LAB ANNIE LAB ANNIE HYDROXY 0 AMERIC AMERIC INCLUDES HOLDING HOLDING FRACTIONS IF PERFORMED BLOOD 68767 FAMILY MULBERRY, COUNT 0 CARE MARYSE Flowers COMPLETE ASSOCIATE AUTO&AUTO S DIFRNTL WBC COLLECTIO 67922 FAMILY LEDESMA, N VENOUS 0 CARE MARYSE Flowers BLOOD ASSOCIATE VENIPUNCT S URE BASIC 16098 COMBINED COMBINED METABOLIC 0 PHYSICIAN PHYSICIAN PANEL S LAB S LAB CALCIUM TOTAL ECG 14494 BUBBA HENDRIX ROUTINE 0 ÁNGEL ARCOS ECG CLINIC J W/LEAST PSC 12 LDS I&R ONLY RADIOLOGI 45661 Chan CANO EXAM 0 MEDICAL JAMES CHEST 2 IMAGING VIEWS ASSOCIATE FRONTAL&L S ATERAL BLOOD 14179 GEORGE VAZQUZE COUNT 0 [facility] COMPLETE INC INC AUTO&[place] [address] GEORGE VAZQUEZ TROPONIN 0 [facility] QUANTITAT INC INC CHERELLE ECG 78684 GEORGE DOWNEY, ROUTINE 0 [facility] W/LEAST PROF SERV 12 LDS I&R ONLY 3D 45739 JANICE DAVIS, RENDERING 0 MEDICAL JAMES W/INTERP IMAGING & ASSOCIATE POSTPROCE S SS SUPERVISI ON INITIAL 60946 CARDIOLOG [facility] 0 Y ASSOC [facility]TA CARE/DAY OF [place] 70 MINUTES ECG 95280 GEORGE VAZQUEZ ROUTINE 0 [facility] ECG INC INC W/LEAST 12 LDS TRCG ONLY W/O I&R CREATINE 48976 GEORGE VAZQUEZ KINASE 0 [facility] TOTAL INC INC CRITICAL 51065 [facility] 0 EMERGENCY OLINDA S ILL/INJUR SERVICES ED PATIENT ASSOCIATE INIT S 30-74 MIN BASIC 74891 GEORGE VAZQUEZ METABOLIC 0 [facility] [address] JANICE DAVIS HEAD/BRAI 0 ROMARIO RAMIREZ N W/O IMAGING CONTRAST ASSOCIATE MATERIAL S CREATINE 39504 GEORGE VAZQUEZ KINASE MB 0 [facility] FRACTION INC INC ONLY HEPATBL 40965 JUANJOSE CANOX SYS 0 ROMARIO RAMIREZ IMG IMAGING GLBLDR ASSOCIATE S TECHNETIU A9537 GEORGE Ruiz TC-99M 0 [facility] MEBROFENI INC INC N DX UP [place] 15 [place] [address] GEORGE VAZQUEZ INFUSION 0 [facility] THERAPY/P INC INC ROPHYLAXI S /DX 1ST TO 1 [place] [address] DAVEY MARISCAL BLOOD/URI 0 CO CO C ACID HOSPITAL HOSPITAL COLLECTIO 58669 DAVEY MARISCAL N VENOUS 0 CO CO BLOOD [facility] VENIPUNCT URE COLLECTIO 12147 GEORGE VAZQUEZ N VENOUS 0 [facility] [place] [address] GEORGE VAZQUEZ AMYLASE 0 [facility] [place] [address] GEORGE VAZQUEZ THYROID 0 [facility]OSP STIMULATI [place] [address] GEORGE VAZQUEZ LIPASE 0 [place] [address] GEORGE VAZQUEZ ABDOMINAL 0 [facility]OS[facility] REAL INC INC TIME W/IMAGE LIMITED XTRNL ECG 86422 GEORGE VAZQUEZ & 48 HR 9 [facility] RECORDING INC INC POTASSIUM [address] PLASMA/WH OLE BLOOD CREATININ 60227 [facility] E BLOOD [address] [place] [address] INTRDUCR/ C1894 [facility] SHEATH [address] [place] [address] NOT GUID INTRACARD EP NON-LASR SODIUM [address] PLASMA OR WHOLE BLOOD GLUCOSE 22813 [facility] QUANTITAT [address] [place] [address] CHERELLE BLOOD XCPT REAGENT STRIP AORTOGRAP [address] ABDOMINAL SERIALOGR APHY RS&I CLOSURE C1760 [facility] DEVICE [address] [place] [address] [place] [address] [facility] UREA [address] [place] [address] NITROGEN QUANTITAT CHERELLE CARBON 99983 [facility] DIOXIDE [address] [place] [address] BICARBONA TE BLOOD 45441 [facility] COUNT [address] [place] [address] HEMATOCRI T L HRT 42752 [facility] CATHETER[address] [place] RETROGRAD E BRACHIAL PERQ I SI&R [address] DURING C-CATHJ PULM&/OR SELECT I SI&R [address] DURING C-CATHJ VENTR&/[place] [address] [facility] C-CATHJ [address] [place] [address] F/SLCTV C ANGRPH ANGIOGRAP 22538 [facility] HY [address] [place] [address] EXTREMITY UNILATERA L RS&I PLCMT G0269 [facility] OCCL DEVC [address] [place] [address] RG/ART POST SURG/INTR VNL PROC INJECTION 37179 [facility] CARDIAC [address] [place] [address] CATHJ L VENTR/L ATR ANGIOGRAP H MYOCRD 23855 GEORGE VAZQUEZ PRFUJ STD 9 [facility] WALL INC INC MOTION QUAL/SANTIAGO STD MYOCRD 83865 GEORGE VAZQUEZ PRFUJ IMG 9 [facility] TOMOG INC INC SPECT CASTING AND LOCKER 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 STD CV STRS 66821 GEORGE VAZQUEZ TST 9 [facility] XERS&/OR INC INC RX CONT ECG TRCG ONLY MYOCRD 41283 GEORGE VAZQUEZ PRFUJ STD 9 [facility] EJEC FXJ INC INC RADIOLOGI 15271 GEORGE VAZQUEZ C EXAM 9 [facility] CHEST 2 INC INC VIEWS FRONTAL&L ATERAL RADEX 19911 GEORGE VAZQUEZ SINUSES 9 [facility] PARANASAL INC INC COMPL MINIMUM 3 VIEWS RADEX 05594 GEORGE VAZQUEZ UPPER GI 9 [facility] W/WO INC INC GLUCAGON/ DELAY IMAGES W/KUB APPL 70683 DAVEY MARISCAL MODALITY 8 CO CO 1/> [facility] TRACTION MECHANICA L APPL 33859 DAVEY MARISCAL MODALITY 8 CO CO 1/> [facility] ULTRASOUN D EA 15 MIN THERAPEUT 24352 DAVEY MARISCAL IC PX 1/> 8 CO CO [facility] EACH 15 MIN EXERCISES PHYSICAL 74787 DAVEY MARISCAL TH[facility]APY 8 [facility] 35848 DAVEY MARISCAL MODALITY 8 CO CO 1/> [facility] ULTRASOUN D EA 15 MIN APPL 24469 DAVEY MARISCAL MODALITY 8 CO CO 1/> [facility] TRACTION MECHANICA L NRV CNDJ 76251 IVETH LAZARO, AMPLT&LAT 8 BEBE SPENCE DIMITRIS EA NRV MOTOR W/F-WAVE STD NRV CNDJ 13911 IVETH LAZARO, AMPLITUDE 8 BEBE SPENCE & LATENCY EACH NERVE SENSORY NDL EMG 1 85947 IVETH LAZARO, XTR W/WO 8 BEBE BEBE RELATED PARASPINA L [facility] COMPREHEN 47469 GEORGE VAZQUEZ SIVE 8 [facility] [place] [address] GEORGE VAZQUEZ STREPTOCO 8 [facility] CCUS INC INC GROUP A BLOOD 44816 GEORGE VAZQUEZ COUNT 8 [facility] COMPLETE INC INC AUTO&AUTO DIFRNTL WBC RADIOLOGI 84166 GEORGE VAZQUEZ C EXAM 8 [facility] CHEST 2 INC INC VIEWS FRONTAL&L ATERAL 3D 28722 RYAN DAVIS, RENDERING 8 JAMES JAMES W/INTERP & [place] [address] RYAN DAVIS SPINAL 8 JAMES JAMES CANAL CERVICAL W/O CONTRAST MATRL BLOOD 70589 DAVEY MARISCAL COUNT 8 CO [facility] MCRSCP W/MNL DIFRNTL WBC COUNT COLLECTIO 57287 DAVEY MARISCAL N VENOUS 8 CO CO [facility] VENIPUNCT URE COMPOS A6201 DAVEY MARISCAL DRESS >16 8 CO CO [facility] </=48 SQ W/O ADHES BORDR EA BLOOD 45990 DAVEY MARISCAL COUNT 8 CO CO [facility] [place] [place] AUTO&AUTO DIFRNTL WBC RADIOLOGI 42268 Chan CANO 8 MEDICAL JAMES EXAMINATI IMAGING ON KNEE 3 ASSOCIATE VIEWS S PRESSURIZ 33979 FAMILY LEDESMA, ED/NONPRE 8 CARE MARYSE Flowers SSURIZED ASSOCIATE INHALATIO S N TREATMENT ALBUTEROL J7620 FAMILY MULBERRY, TO 2.5 8 CARE MARYSE Flowers MG & ASSOCIATE IPRATROPI S UM BROM TO 0.5 MG INJECTION J1100 FAMILY MULBERRY, 8 CARE MARYSE T DEXAMETHO ASSOCIATE SONE S SODIUM PHOSPHATE 1 MG MRI 05061 PHYSICIAN PHYSICIAN SPINAL 8 S S CANAL SERVICES SERVICES CERVICAL PSC PSC W/O CONTRAST MATRL 3D 22965 PHYSICIAN GEORGETTE, RENDERING 8 S BEBE W W/INTERP SERVICES & [place] [address] PHYSICIAN GEORGETTE, GUIDANCE 8 S BEBE W NEEDLE SERVICES PLACEMENT PSC 3D 35533 PHYSICIAN PALOMINO, RENDERING 8 S BEBE W W/INTERP SERVICES & [place] [address] PHYSICIAN PALOMINO, GUIDANCE 8 S BEBE W NEEDLE SERVICES PLACEMENT PSC MRI 09349 PHYSICIAN PHYSICIAN SPINAL 8 S S CANAL SERVICES SERVICES LUMBAR PSC PSC W/O CONTRAST MATERIAL Encounters Encounter Start End Date Code Location Performer Type Date OFFICE [address] [facility]ELA OUTPATIEN 7 7 PHYSICIAN T VISIT S GROUP [address]ES [address] [facility] OUTPATIEN 7 7 PHYSICIAN T VISIT S GROUP 25 MINUTES HOSPITAL [facility] - 7 7 [facility]PATIEN [facility] GEORGE - 7 7 [facility]ORGE - 7 7 [facility] GEORGE - 6 6 [facility]ORGE - 6 6 [facility] GEORGE - 6 6 [facility] OUTPATIEN [facility] OFFICE [address] [facility] MICHAELA OUTPATIEN 6 6 PHYSICIAN MAT T VISIT S GROUP 25 MINUTES HOSPITAL [facility] - 6 6 [facility] OUTPATIEN [facility] GEORGE - 6 6 [facility] OUTPATIEN [facility] YUNI - 5 5 [facility] GEORGE - 5 5 [facility] OUTPATIEN [facility] HOSPITAL GEORGE - 4 4 [facility] OUTPATIEN [facility] EMERGENCY 82973 [facility] CRISTOBAL [facility] CRISTOBAL 4 4 [facility] VISIT [facility] - 4 4 [facility] 4 4 [facility] [place] [facility] 3 3 [facility] [place] 3 3 [facility]GE - 3 3 [facility] - 3 3 [facility] - 2 2 [facility] - 1 1 [facility] - 1 1 [facility] - 1 1 [facility] - 1 1 [facility] - 1 1 [facility] - 1 1 [facility] - 1 1 [facility] - 1 1 [facility] CRITICAL DAVEY REDD 1 1 [facility]PITAL EMERGENCY 78445 DAVEY DEPT 1 1 MS VISIT HOSPITAL HIGH SEVERITY& THREAT FUNJ EMERGENCY 64792 DAVEY PANTOJA 1 1 [facility] T VISIT HIGH/URGE NT SEVERITY EMERGENCY 27782 WILLY JIMENEZ DEPT 1 1 EMERGENCY RUFINO VISIT SERVICES HIGH SEVERITY& THREAT FUNCJ EMERGENCY 51182 GEORGE 1 1 [facility] DEPARTMEN INC T VISIT HIGH/URGE NT SEVERITY [facility]OSPITAL [facility] - 1 1 [facility] OUTPATIEN INC T CRITICAL DAVEY REDD 1 1 [facility] HOSPITAL EMERGENCY 03502 DAVEY NICHOLS 1 1 [facility] T VISIT MODERATE SEVERITY OFFICE 63161 GEORGE FERNANDEZ JR OUTPATIEN 1 1 [facility] T VISIT HOSPITAL 15 P MINUTES EMERGENCY 72128 WILLY JIMENEZ, 0 0 EMERGENCY [facility] SERVICES T VISIT HIGH/URGE ASSOCIATE NT S SEVERITY HOSPITAL [facility] - 0 0 [facility] OUTPATIEN INC T EMERGENCY 99597 GEORGE 0 0 [facility] DEPARTMEN INC T VISIT MODERATE SEVERITY OFFICE 92961 SHELLEY FERNANDEZ JR, OUTPATIEN 0 0 [facility] MARGARITA T NEW 30 UROLOGY R MINUTES [facility] GEOREG - 0 0 [facility] OUTPATIEN INC T OFFICE 88353 FAMILY KIRTI, OUTPATIEN 0 0 CARE R BUFFY T VISIT ASSOCIATE 15 S MINUTES OFFICE 27431 FAMILY KIRTI, OUTPATIEN 0 0 CARE R BUFYF T VISIT ASSOCIATE 25 S MINUTES OFFICE 11831 FAMILY BALTAZAR, OUTPATIEN 0 0 CARE MARYSE T T VISIT ASSOCIATE 25 S MINUTES HOSPITAL [facility] - 0 0 HOSPITAL INPATIENT EMERGENCY 59112 GEORGE DEPT 0 0 [facility] VISIT INC HIGH SEVERITY& THREAT [facility] - 0 0 [facility] OUTPATIEN [facility] HOSPITAL GE[facility]GE - 0 0 [facility] CRITICAL DAVEY ACCESS 0 0 [facility] EMERGENC[facility] [address]AVEY [address] [facility] T VISIT LOW/MODER SEVERITY EMERGENCY 27833 DAVEY LEONARD CLAUDIA [address] [facility] T VISIT MODERATE SEVERITY HOSPITAL [facility] - 0 0 [facility] OFF[facility] 99340 [facility]TI[facility] CARE R BUFFY T VISIT ASSOCIATE 15 S MINUTES OFFICE 29424 LEW HACKETT, LINDAAT 9 9 DAVID ORELLANA NEW/ESTAB PATIENT 30 MIN OFF[address] [facility] MAICOL BALTAZAR 9 9 PHYSICIAN ÁNGELA Flowers VISIT S GROUP 25 MINUTES HOSPITAL [facility]GE - 9 9 [facility] [place] [address] 9 [facility] - 9 9 [facility] OUTPATIEN [facility] - 9 9 [facility] - 9 9 [facility] CRITICAL DAVEY ACCESS 8 8 [facility] CRITICAL DAVEY ACCESS 8 8 [facility] OFFICE 16887 KAMRON AMEZCUA, CONSULTAT 8 8 ROMARIO ORELLANA SERV NEW/ESTAB FOUNDATIO PATIENT 40 MIN OFFICE 87541 MAHENDRA MCCRAY OUTPATIEN 8 8 NOAH Flowers NEW 45 MINUTES OFFICE 39886 IVETH LAZARO, CONSULTAT 8 8 BEBE ORELLANA NEW/ESTAB PATIENT 80 MIN [facility]OSPITAL [facility] - 8 8 [facility] OUTPATIEN INC T EMERGENCY 33981 PAVAN SANDRA, 8 8 [facility] CORPORATI T VISIT ON HIGH/URGE NT SEVERITY EMERGENCY 65269 GEORGE 8 8 [facility] DEPARTMEN INC T VISIT MODERATE SEVERITY OFFICE 65884 MAICOL SCHWARTZ 8 8 CARE R BUFFY T VISIT ASSOCIATE 15 S MINUTES EMERGENCY 43577 DAVEY 8 8 CO [facility] T VISIT MODERATE SEVERITY CRITICAL DAVEY ACCESS 8 8 CO [facility] EMERGENCY 19159 DAVEY 8 8 [facility] T VISIT LOW/MODER SEVERITY OFFICE 72468 MAICOL SCHWARTZ 8 8 CARE R BUFFY T VISIT ASSOCIATE 15 S MINUTES HOSPITAL [facility]GE - 8 8 [facility] OUTPATIEN INC T OFFICE 43561 MAICOL BRANDT 8 8 CARE MARYSE T T VISIT ASSOCIATE 15 S MINUTES OFFICE 98971 PHYSICIAN PHYSICIAN OUTPATIEN 8 8 S S T VISIT SERVICES SERVICES 15 PSC PSC MINUTES OFFICE [id number] PHYSICIAN PHYSICIAN CONSULTAT 8 8 S S ION SERVICES SERVICES NEW/ESTAB P[facility] PSC PATIENT 40 MIN
--- OUTSIDE RECORDS SUMMARY | 2016-11-01 10:40 | External Medical Summary Rpt ---
Demographics Preferred Language Moz[place]ican Marital Status Unknown Orthodox Affiliation Unknown Race Unknown Ethnic Group Unknown Author Author , Organization [facility] Address Unknown Phone Unavailable Purpose Continuity of Care Document - through 2016 Immunization No patient found.
--- OUTSIDE RECORDS SUMMARY | 2016-11-01 10:40 | External Medical Summary Rpt ---
Demographics Preferred Language Turkmen Marital Status Unknown Episcopal Affiliation Unknown Race Unknown Ethnic Group Unknown Author Author , Organization [facility] Address Unknown Phone Unavailable Purpose Continuity of Care Document - through 2016 Immunization No patient found.
[2016-11-01] MEDS ORDERED: METOPROLOL25 MG PO (12:17)
[2016-11-01 12:42] VITALS: BP 122/89
--- NOTE | 2016-11-01 15:17 | CONSULT NOTE ---
Standard Demographics Patient Demo Date of Consultation: 11/01/16 Referring Provider: Pamela Beck MD Reason for Consultation: Chest pain, Palpitations Problem list Problem list: 1. Coronary disease A. History of previous stenting to left anterior descending and circumflex, 2014. B. History of previous myocardial infarction approximately 2009. C. History of previous coronary stenting approximately 2004. D. Inferior STEMI, 07/18/2016. S/p RCA GARRY placement. 2. Recurrent medication noncompliance 3. Malignant hypertension with normal renal arteries by cardiac catheterization 11/2014. 4. History of TIAs and CVAs 2014 5. Tobacco use of at least 1 pack per day 6. Hyperlipidemia 7. Hypothyroidism with history of remote surgery to remove a thyroid mass. On replacement therapy History of present illness: History of present illness: 66-year-old white male with extensive coronary artery disease presented to the emergency department today after onset of rapid heart rate followed by chest pain and pressure. Symptoms were brief in duration but were recurrent thereafter to a lesser degree. In the emergency department patient's telemetry revealed intermittent ventricular pacing, AV pacing with frequent ectopyand tachycardia. Initial cardiac enzymes normal. Cardiology consulted for evaluation and recommendations.patient denies missing any medications recently. 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 Past Medical History: General: Hypertension Yes CVA Yes Seizures No TB No COPD Yes Asthma No Diabetes No Angina Yes OR Yes Hyperlipidemia Yes Urinary Yes Cancer Yes Rheumatic H.D. No Ulcers No MRSA Yes GB Disease No Other BARDER'S SYNDROME-KIDNEY Additional hx Tobacco use disorder Past Surgical HX: Previous Surgery?Y BACK-HERNIATED DISCSX2 BILATERAL KNEE REPLACE- MENTS LEFT FOOTX4 RIGHT INGUINAL HERNIA X3 CHEST TUMOR REMOVED LEFT THUMB HEART STENTS PARTIAL THYROIDECTOMY PACEMAKER Allergies Coded Allergies: allopurinol (08/13/16) indomethacin (From INDOCIN) (08/13/16) morphine (08/13/16) pravastatin (08/13/16) Home medications: Active Scripts Ticagrelor (Brilinta) 90 MG PO BID #60 TAB Ref 2 Prov: 07/24/16 Carvedilol (Carvedilol 6.25MG) 6.25 MG PO BID #60 TAB Ref 2 Prov: 07/24/16 Reported Medications Levothyroxine Sodium 0.2 MG PO DAILY #30 Gabapentin (Gabapentin 400MG Capsule) 400 MG PO 5XDAILY #150 NITROGLYCERIN (Nitrostat) 0.4 MG PO PRN PRN CHEST PAIN Montelukast Sodium (Singulair 10MG) 10 MG PO QHS Cyclobenzaprine Hcl (Flexeril) 10 MG PO QHS ALLOPURINOL (Allopurinol 100MG) 200 MG PO DAILY Omeprazole (Omeprazole 40MG) 40 MG PO DAILY HYDROCODONE/ACETAMINOPHEN (Hydrocodon-Acetaminoph 7.5-325) 1 TAB PO TID PRN PRN PAIN #90 TAB IBUPROFEN (Ibuprofen 600MG) 600 MG PO TIDP PRN HEADACHE ALBUTEROL-IPRATROPIUM (Combivent Inhaler) 1 PUFFS IN 4 TIMES DAILY ASPIRIN (Aspirin) 81 MG PO DAILY Trazodone Hcl (Trazodone HCl) 100 MG PO QHS Alprazolam (Xanax 0.5MG) 0.5 MG PO TID Olanzapine (Zyprexa 10MG) 10 MG PO QHS Ezetimibe (Zetia) 10 MG PO DAILY TIZANIDINE HCL (Tizanidine Hcl 4 Mg Tablet) 4 MG PO DAILY #30 Current Medications: Current Medications Metoprolol Tartrate 0 .STK-MED ONE .ROUTE (DC) Metoprolol Tartrate 0 .STK-MED ONE IV (DC) Metoprolol Tartrate 25 MG ONCE ONE PO (DC) Metoprolol Tartrate 25 MG ONCE ONE PO (DC) Metoprolol Tartrate 5 MG ONCE ONE IV (DC) Sodium Chloride 10 ML PRN PRN IV (DCD) Immunization HX DT/Tetanus 5-10 Years Flu [id number] Pneumonia RECEIVED IN PAST Family history Family HX Family Hx Insignificant No Diabetes No CAD Yes Hypertension Yes Hyperlipidemia Yes Cancer Yes TB No Social Hx: Smoking HX Tobacco Yes Type Cigarettes Packs/day < 1 PACK Alcohol Alcohol: No Hx of Drug Use Drug Use? No Patien't marital status is Patient's support system is fair Review of systems: Constitutional No: no symptoms reported. Respiratory No: no symptoms reported. Cardiovascular see HPI, chest pain, palpitations Gastrointestinal/Abdominal No no symptoms reported Genitourinary No: no symptoms reported. Musculoskeletal No: no symptoms reported. Neurological No: no symptoms reported. Exam: Admission Vital Signs: 1ST Vital Signs Result Date Time Pulse Ox 93 11/01 940 B/P 136/73 11/01 940 Temp 98.2 11/01 940 Pulse 95 11/01 940 Resp 18 11/01 940 Last Vital Signs: Vital Signs Result Date Time Pulse Ox 96 11/01 1242 B/P 122/89 11/01 1242 Pulse 70 11/01 1242 Resp 20 11/01 1242 Temp 98.2 11/01 940 Exam General appearance: alert, awake, no acute distress Neck: no carotid bruit, no JVD Cardiovascular: regular rate & rhythm, extra beats Respiratory: clear to auscultation ABD: soft, no tenderness Extremities: moves all, no peripheral edema Neuro: alert, intact, oriented Laboratory data: Laboratory Tests 11/01/16 1140: Troponin I < 0.02 11/01/1640: Sodium 141, Potassium 4.0, Chloride 104, Carbon Dioxide 27, BUN 24 H, Creatinine 1.0, Estimated Creat Clear 81, Estimated GFR (MDRD) 74, Glucose 108 H, Calcium 9.2, Total Bilirubin 0.6, AST 9 L, ALT 15, Alkaline Phosphatase 59, Creatine Kinase 234, CK-MB (CK-2) Rel Index 1.7, CK and CKMB Interp 4.0 H, Troponin I < 0.02, Total Protein 7.5, Albumin 3.4, Globulin 4.1 H, Albumin/ Globulin Ratio 0.8 L, WBC 9.8, RBC 3.71 L, Hgb 11.4 L, Hct 34.6 L, MCV 93.4, RDW 14.5, Plt Count 266, MPV 6.7 L, Gran % 77.2, Gran # 7.6, Lymphocytes % 14.3 , Monocytes % 5.5, Eosinophils % 2.6, Basophils % 0.3, Lymphocytes # 1.4, Monocytes # 0.5, Eosinophils # 0.3, Basophils # 0.0, PUBS MCHC 32.8, MCH 30.6 Plan: Assessment: 1. Palpitations with episode of supraventricular tachycardia noted on pacer interrogation today. Heart rate documented at 181 bpm for 15 beats. 2. Coronary disease status post recent ST elevation myocardial infarction with RIGHT coronary artery are living stent placement in July of this year. Patient states he has been compliant with medications. He does have a large OM with moderate to severe disease that we are trying to treat medically. 3. History of medication noncompliance due to erectile dysfunction 4. History of malignant hypertension 5. History of tobacco use Recommendations: 1. Repeat troponin is normal and patient's heart rate is controlled and he may be discharged home. 2. Patient was given IV Lopressor 5 mg followed by 25 mg of metoprolol by mouth. 3. Plan for follow-up in the office tomorrow with Dr. Gaytan. at [id number]
--- NOTE | 2016-11-01 18:54 | RADIOLOGY REPORT PS360 ---
CHEST-PORTABLE Ordering physician: Pamela Beck MD Age: 66 years Male INDICATION: chest symptomsCHEST PAIN PROCEDURE: CHEST-PORTABLE FINDINGS: Prior chest film 08/13/2016 08/11/2016 Lungs well expanded and clear with nothing definitely acute. No significant interval change. Stable chest No pneumothorax. No pleural effusion. Borderline cardiac. AV Pacemaker overlying left chest. Normal pulmonary vascularity. Hilar and mediastinal structures appear satisfactory. Chest wall unremarkable. T-spine intact. IMPRESSION ----- Stable chest Nothing definite acute at chest With pacemaker. Borderline thyromegaly
[2016-11-06] MEDS ORDERED: LOPRESSOR 50 MG50 MG PO (15:28)
[2016-11-06] MEDS ORDERED: GUAIFENESIN AN118 ML PO (20:06)
[2016-11-06] MEDS ORDERED: CEFDINIR 300MG300 MG PO (20:06)
== END 2016-11-01 12:43 | disposition home or self-care (01) ==
LOC: ER 09:40
PROVIDERS: Emergency Medicine
DX: R00.0 Tachycardia, unspecified (principal); Z95.0 Presence of cardiac pacemaker; I25.10 Atherosclerotic heart disease of native coronary artery without angina pectoris; I10 Essential (primary) hypertension; Z72.0 Tobacco use